=== PATIENT | male | born 1945 | race Caucasian/White ===

== ENCOUNTER 2020-05-22 06:29 | Inpatient (IN) | payer MEDICARE, BC, SELFPAY ==
[2020-05-22] VITALS (13 sets, daily range): BP systolic 89–129; BP diastolic 64–85; PULSE 81–94; RESP 18–34; TEMP 36.4; O2SAT 89–98; BMI 28.4; BMI 27.9; BMI 28.0
--- NOTE | 2020-05-22 06:35 | RAD_ITS ---
HISTORY: STEMI ADDITIONAL HISTORY: None provided. EXAMINATION/TECHNIQUE: XR Chest 1 View AP/PA Number of images including paperwork: 1 COMPARISON: None FINDINGS: LUNGS AND PLEURA: No consolidation, mass or pleural effusion. CARDIAC SILHOUETTE: Unremarkable. MEDIASTINUM AND KATHRYN: Unremarkable. UPPER ABDOMEN: Unremarkable. SKELETON AND SOFT TISSUES: No acute skeletal findings. Degenerative changes. OTHER DEVICES AND HARDWARE: None. RAD/Chest 1 View (Portable) IMPRESSION: No acute cardiopulmonary abnormality. at 0702 Reported and signed by: Susan Adkins MD Electronically Signed: Susan Adkins MD at 7:02 EDT Tel , Service support ,
--- NOTE | 2020-05-22 06:35 | EKG12_ITS ---
Test Reason : Blood Pressure : / mmHG Vent. Rate : 095 BPM Atrial Rate : 095 BPM P-R Int : 170 ms QRS Dur : 074 ms QT Int : 358 ms P-R-T Axes : 063 012 094 degrees QTc Int : 449 ms Sinus rhythm with frequent Premature ventricular complexes Inferior infarct , possibly acute ACUTE UT / STEMI Consider right ventricular involvement in acute inferior infarct Abnormal ECG Confirmed by CORNELIO TRUJILLO, ROXANN ([id number]), news assignment editor WOOD CENTENO ([id number]) on 05/24/2020 10:46:25 AM Referred By: Ara Quinones Confirmed By:ROXANN GRIMES MD
[2020-05-22] MEDS: Heparin Injection (Vial) 5,000 UNIT/ML VIAL 5700 UNIT IV (06:42)
[2020-05-22] MEDS: Aspirin 81 MG TAB.CHEW 324 MG PO (06:42)
--- NOTE | 2020-05-22 06:42 | ED.DCSUM_ITS ---
History of Present Illness Chief Complaint: Chest Pain Informant: Patient Narrative: 75-year-old male with past medical history of diabetes presents with concern for shortness of breath and chest pain. States that 2 days ago he was feeling weak and tired following clearing out a storage building. States that last night he was feeling tired and went to bed early but at 9 PM which is now approximately 9 hours ago he awoke with shortness of breath and mild retrosternal nonradiating chest pain. States it is been constant since that time. Went to urgent care this morning where they sent him here with concern for chest pain. Patient has no history of coronary artery disease and is never had a cardiac catheterization. Patient is not on anticoagulation. Patient is not a smoker. Past Medical History - Allergies and Home Meds Allergies/Adverse Reactions: Allergies No Known Allergies Allergy (Verified 05/22/20 06:43) Primary Care Physician: Didier Vann MD [Primary Care Provider] - Past Medical History: - - Diabetes Surgical History: appendectomy Lives: With Family Smoking Status: Never smoker Alcohol: None Drugs: None Review of Systems General: Denies: Chills, Fever, Sweats Eyes: Denies: Visual changes - bilaterally, Diplopia ENT: Denies: Rhinorrhea, Sore throat Cardiovascular: Reports: Chest pain. Denies: Palpitations Respiratory: Reports: Dyspnea. Denies: Cough, Dyspnea on exertion Gastrointestinal: Denies: Abdominal pain, Nausea, Vomiting, Diarrhea, Melena, Hematochezia Genitourinary: Denies: Dysuria, Hematuria, Frequency Musculoskeletal: Denies: Back pain, Extremity Pain Skin: Denies: Rash, Wounds Neurological: Denies: Headache, Weakness, Numbness Physical Exam Vital Signs/Narrative: Vital Signs Temp Pulse Resp BP Pulse Ox 05/22/20 06:34 20 H 129/85 H 05/22/20 06:30 97.6 F L 94 20 H 129/85 H 94 General: Well nourished, Well developed, No Acute Distress Head: Normocephalic, Atraumatic Eyes: Perrl, EOMI ENT: Moist mucous membranes, No rhinorrhea Neck: Supple, Nontender Cardiovascular: Regular rate, Regular rhythm, No murmurs Respiratory: No distress, CTA bilaterally, Chest nontender Abdomen: Soft, Nontender, Nondistended, Normal bowel sounds Back: Nontender, Normal Inspection Extremities: Nontender, No edema Skin: Normal color, No rash Neurological: Alert, Oriented x3, Cranial nerves II-XII grossly intact, Normal Strength, Normal Sensation Psychological: Normal affect, Normal Mood Diagnostic/Tx/Re-eval - Rhythm Strip Rhythm Strip: Sinus Rhythm Rate: 95 Ectopy: None - EKG Initial EKG Interpretation: Sinus Rhythm - Sinus rhythm at 95 bpm. SC interval of 170 ms. QTC of [address] elevation in leads II, 3, aVF. Reciprocal changes in aVL. Slight elevation in V6. - Medical Decision Making Patient appears well and nontoxic. Initial EKG shows inferior STEMI. Elevation in leads II, III, aVF. Possible slight elevation in V6. Patient was given aspirin. Spoke with gauger chief delivery on-call Dr. Quinones who is agreeable with taking this patient to the catheterization lab. Patient was given a bolus of heparin. Patient agreeable with catheterization and will be admitted following his procedure. Stable at time of admission. Impression: 1. ST elevation myocardial infarction 2. Dyspnea 3. History of diabetes ED Disposition - Plan for ED Patient: Disposition: Acute Care [facility] Referrals: Didier Vann MD [Primary Care Provider] -
[2020-05-22 06:46] LABS: Absolute Neutrophil Count 10.2 X10^3/uL (2.0-7.7); Basophil# 0.02 X10^3/uL; Basophil% 0.2 % (0-1); Eosinophil# 0.15 X10^3/uL; Eosinophils% 1.2 % (0-5); Hematocrit 45.2 % (40-54); Hemoglobin 14.9 g/dL (13.0-16.5); Lymphocyte % 9.5 % (19-41); Mean Corpuscular Hgb 29.2 pg (27.0-32.0); Mean Corpuscular Volume 88.6 fL (80-94); Mean Platelet Vol. 11.8 fl (6.2-12.0); Monocyte# 1.01 X10^3/uL; NRBC Flagged by Analyzer 0 % (0-5); Neutrophil # 10.24 X10^3/uL (2.7-7.7); Neutrophil % 80.8 % (47-70); Platelet Count 226 K/mm3 (150-450); RBC Distribution Width CV 13.8 % (11.6-14.6); RBC Distribution Width SD 44.4 fl (35.1-43.9); White Blood Count 12.7 K/mm3 (4.4-11.0)
[2020-05-22 06:51] LABS: Bedside Glucose 217 mg/dL (70-110)
--- NOTE | 2020-05-22 06:52 | NURSING ---
NO OLD EKGS
[2020-05-22 06:54] LABS: Partial Thromboplast Time 29.2 Seconds (24.1-36.2)
--- NOTE | 2020-05-22 06:57 | NURSING ---
CUSTOMER CARE PROFESSIONAL THEN ICU STEMI LUISA
[2020-05-22 07:03] LABS: International Normalized Ratio 1.1; Prothrombin Time (Protime)PT. 13.6 SECONDS (11.7-14.9)
--- NOTE | 2020-05-22 07:04 | NURSING ---
ICU 9
[2020-05-22 07:27] LABS: Anion Gap 8 (5-15); BUN 22 mg/dL (7-18); BUN/Creat Ratio 15.7 RATIO (10-20); Calcium,Total 8.9 mg/dL (8.5-10.1); Chloride 99 mmol/L (98-107); EST Glomerular Filtration Rate 53 mL/min (>60); Est Glom Filt Rate - Afr Amer 64 mL/min (>60); Estimated Creatinine Clearance 51.58 ml/min; Glucose 231 mg/dL (74-106); Potassium 3.5 mmol/L (3.5-5.1); Sodium Level 135 mmol/L (136-145)
--- NOTE | 2020-05-22 07:28 | ED.RN ---
FREIGHT RATE SPECIALIST AND ICU NOTIFIED TROPONIN 66.8
--- NOTE | 2020-05-22 07:30 | ED.RN ---
TEXT SENT TO HOSPITALIST PAGER UPDATING ON TROPONIN OF 66.8
--- NOTE | 2020-05-22 09:00 | CASEMGMT ---
KAIT CM Note: call from [employer] laborer requesting insurance update. Call to precert to verify MCR is primary and [place] is secondary. Update to cardiac cath lab radiology technologist given. Plan is for patient to transfer to tertiary care. Jessica QUINTERO RN ACM
--- NOTE | 2020-05-22 09:10 | ECHOCS_ITS ---
Reason For Study: STEMI Procedure This was a 2D Doppler, Color Flow transthoracic echocardiogram. The study was technically difficult. Patient scanned supine due to recent cath. Exam performed portable in ICU/CCU. Left Ventricle Normal LV size. The estimated ejection fraction is 20-25 %. There is severe global hypokinesis of the left ventricle. Right Ventricle Normal RV size. Normal systolic function. Atria Normal left atrium. Normal right atrium. No doppler evidence for ASD. Mitral Valve There is no mitral valve stenosis. No mitral valve insufficiency. Tricuspid Valve There is no tricuspid stenosis. Unable to estimate RV systolic pressure due to inadequate jet, pulmonary artery pressure probably normal. Aortic Valve Trisinus/trileaflet aortic valve. Aortic sclerosis, no stenosis. There is no aortic stenosis. No aortic valve insufficiency. Pulmonic Valve There is no pulmonic valvular stenosis. No pulmonic valve insufficiency. Great Vessels Normal aortic root. Pericardium/Pleural No pericardial effusion. Medication Performed a rapid injection of agitated mix of 9 cc saline and 1cc air to assess for atrial septal defect. Diluted definity 4ml given slow IV push to enhance endocardial definition. MMode/2D Measurements & Calculations LVIDd: 3.6 cm IVSd: 1.1 cm Ao root diam: 3.6 cm LVIDs: 3.2 cm LVPWd: 0.90 cm RVDd: 2.6 cm FS: 10.5 % LAV(MOD-sp4): 32.4 ml LA A4 area: 13.3 cm2 LA dimension(2D): 2.6 cm RA A4 area: 9.6 cm2 Doppler Measurements & Calculations MV E max christopher: 48.0 cm/sec Lat Peak E' Christopher: 3.2 cm/sec Med Peak E' Christopher: 4.7 cm/sec MV A max christopher: 83.3 cm/sec E/E' lat: 14.8 E/E' med: 10.2 MV E/A: 0.58 Ao V2 max: 75.0 cm/sec LV V1 max: 56.2 cm/sec PA V2 max: 55.5 cm/sec Ao max P.2 mmHg LV V1 max P.3 mmHg Interpretation Summary There is severe global hypokinesis of the left ventricle. The estimated ejection fraction is 20-25 %. The study was technically difficult. Contrast injection was performed. Ordering Physician: Ara Quinones Referring Physician: Didier Vann Performed By: Ester Pimentel RDCS
[2020-05-22] MEDS: 0.9% Normal Saline 1,000 ML 60 ML IV (09:24)
--- NOTE | 2020-05-22 10:08 | PCM.CONS.C ---
Reason for Consult Date of Consultation: 05/22/20 Reason for Consultation: STEMI History of Present Illness: 75-year-old male with past medical history of diabetes presents with concern for shortness of breath and chest pain. States that 2 days ago he was feeling weak and tired following clearing out a storage building. States that last night he was feeling tired and went to bed early but at 9 PM which is now approximately 9 hours ago he awoke with shortness of breath and mild retrosternal nonradiating chest pain. States it is been constant since that time. Went to urgent care this morning where they sent him here with concern for chest pain. Patient has no history of coronary artery disease and never had a cardiac catheterization. Patient is not on anticoagulation. Patient is not a smoker. Chest pain is worse with deep inspiration. EKG in the ER revealed inferior STEMI. Pt. already had Q waves but due to ongoing CP he was brought to the flue dust laborer and underwent coronary angiography which revealed 80% stenosis in the LAD and 100% mRCA which was the culprit lesion. Attempted PCI to the RCA was unsuccessful. Pt. will be admitted to the ICU and then transferred to [facility] for possible CABG. ROS: A;ll; systems reviewed. All else is negative except that in the HPI Past Medical History Allergies/Adverse Reactions: Allergies No Known Allergies Allergy (Verified 05/22/20 06:43) Home Medications: Ambulatory Orders Medication Instructions Recorded Insulin Glargine,Hum.rec.anlog 40 unit SQ DAILY 05/22/20 [Lantus] Insulin Lispro [Humalog] 15 units SQ TID 05/22/20 Insulin Lispro [Insulin Lispro 15 unit SQ TID 05/22/20 Kwikpen U-100] Metformin HCl [Metformin ER 500 mg PO DAILY 05/22/20 Osmotic] Past Medical History (Chronic Problems): Chronic Problems Type 2 diabetes mellitus (Chronic) Surgical History: appendectomy Lives: With Family Smoking Status: Never smoker Alcohol: None Drugs: None Objective: Vital Signs Temp Pulse Resp BP Pulse Ox 97.6 F L 81 34 H 98/71 92 05/22/20 07:00 05/22/20 10:00 05/22/20 10:00 05/22/20 10:00 05/22/20 10:00 Oxygen Flow Rate (L/min) 2 Oxygen Delivery Method Nasal Cannula Weight: 206 lb 2.115 oz Body Mass Index (BMI) 27.9 General: Awake, Alert, Oriented x 3 HEENT: Atraumatic Oral: Moist Mucosa Neck: Supple Cardiovascular: Regular Rhythm Abdomen: Soft Skin: No Rashes Psych/Mental Status: Appropriate 05/22/20 06:40: WBC 12.7 H, RBC 5.10, Hgb 14.9, Hct 45.2, MCV 88.6, MCH 29.2, MCHC 33.0, Plt Count 226, MPV 11.8, Immature Gran % (Auto) 0.300, Neut % (Auto) 80.8 H, Lymph % (Auto) 9.5 L, Kaufman % (Auto) 8.0, Eos % (Auto) 1.2, Baso % (Auto) 0.2, Absolute Neuts (auto) 10.2 H, Nucleated RBC % 0 05/22/20 06:40: PT 13.6, INR 1.1, APTT 29.2 05/22/20 06:40: Sodium 135 L, Potassium 3.5, Chloride 99, Carbon Dioxide 28.0, Anion Gap 8, BUN 22 H, Creatinine 1.40 H, Est GFR (MDRD) Af Amer 64, Est GFR (MDRD) Non-Af 53 L, BUN/Creatinine Ratio 15.7, Glucose 231 H, Calcium 8.9, Troponin I 66.800 H* Rhythm: EKG: ECHO: Stress Test: Cardiac Cath: PCI: CT Surgery: Holter monitor: EPS: PPM: CXR: Chest CT Scan: Assessment/Plan 1. STEMI: Pt. presented about 9 hours after onset of symptoms and was having ongoing CP. Pt. already had Q waves but due to ongoing CP he was brought to the flue dust laborer and underwent coronary angiography which revealed 80% stenosis in the LAD and 100% mRCA which was the culprit lesion. Attempted PCI to the RCA was unsuccessful as we were not able to cross the lesion. Pt. will be admitted to the ICU and then transferred to [facility] for possible CABG. We will check a 2d echo, keep the patient in ASA, Statin. No plavix or brillinta as he may be going for CABG. He hasn't been loaded with these. He did received integrillin during the case which was stopped at around 8:30 am today.
--- NOTE | 2020-05-22 10:08 | NURSING ---
Report given to RN @ [facility].
--- NOTE | 2020-05-22 10:11 | HP.PCM_ITS ---
Problem List (1) Renal insufficiency Status: Acute (2) Acute ST elevation myocardial infarction (STEMI) Status: Acute (3) Type 2 diabetes mellitus Status: Chronic History of Present Illness Date of Admission: 05/22/20 Chief Complaint: Chest pain. The patient is a 75 year old M with past medical history as mentioned above presented to the emergency room because of chest pain. His symptoms started yesterday evening with chest pain, started at rest, retrosternal, constant pain, sometimes sharp, goes anywhere from 2-5 out of 10 in severity, aggravated by taking a deep breath and associated with shortness of breath and diaphoresis. He denies dizziness, syncope or presyncope. He denied fever or chills. He denied cough or sputum production. In the emergency department, his vital signs were stable. His routine blood work was remarkable for mild leukocytosis, BUN of 22, creatinine is 1.4. EKG revealed normal sinus rhythm, acute ST elevation in leads II, III and aVF. Patient underwent emergent cardiac catheterization that revealed 80% stenosis of the LAD, 100% stenosis of the mid RCA, attempted PCI to RCA was unsuccessful. Patient is being admitted for acute inferior wall ST elevation LA and probably he will need transfer to a tertiary care center for possible CABG. 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 Lives: With Family Smoking Status: Never smoker Alcohol: None Drugs: None - *Family History Maternal History Items: No pertinent history Paternal History Items: No pertinent history Review of Systems Constitutional: Denies: Anorexia, Chills, Fever, Weakness Eyes: Denies: Blurred vision, Double vision, Drainage, Redness HEENT: Denies: Difficulty Hearing, Ear Pain, Eye Pain, Nasal Congestion, Sore Throat Cardiovascular: Reports: Chest Pain. Denies: Edema, Heaviness, Light Headedness, Orthopnea, Palpitations, Paroxysmal Noc. Dyspnea, Syncope Respiratory: Reports: Shortness of Breath. Denies: Cough, Hemoptysis, Pleuritic Pain, Sputum production, Wheezing Gastrointestinal: Denies: Abdominal Pain, Constipation, Diarrhea, Nausea, Vomiting Genitourinary: Denies: Dysuria, Frequency, Hematuria Musculoskeletal: Denies: Arm Pain, Back Pain, Foot Pain Skin: Denies: Dryness, Rash Neurological: Denies: Balance problems, Double vision, Change in Speech, Headaches, Incoordination, Numbness Psychiatric: Denies: Anxiety, Depression Endocrine: Denies: Change in Body Habitus, Polydipsia, Polyuria VTE Information - Inpt Only VTE Present on Admission: No VTE Mechan Device Prophylaxis: None VTE Pharm Prophylaxis ordered?: Yes Patient Problems: Active and Suspected Problems Renal insufficiency (Acute) Acute ST elevation myocardial infarction (STEMI) (Acute) - Physical Exam Vitals/I&O's: Vital Signs Temp Pulse Resp BP Pulse Ox 97.6 F L 81 34 H 98/71 92 05/22/20 07:00 05/22/20 10:00 05/22/20 10:00 05/22/20 10:00 05/22/20 10:00 Oxygen Flow Rate (L/min) 2 Oxygen Delivery Method Nasal Cannula Weight: 206 lb 2.115 oz Body Mass Index (BMI) 27.9 General: Alert, Oriented x3, Cooperative, No apparent distress HEENT: Atraumatic, PERRLA, EOMI, Normocephalic Oral: Moist Mucosa, No Gingival or Mucosal Lesions/ Ulcerations Neck: Supple, No JVD, Negative Carotid Bruits, Trachea Midline, Thyroid Normal Size and Texture Lungs: Clear to auscultation, Normal air movement, No rhonchi, No wheeze, No rales Cardiovascular: Regular rate, Regular Rhythm, Normal S1, Normal S2, No murmurs, PMI Normal Abdomen: Bowel Sounds Present, Soft, Non Tender, Non-Distended, No Hepato- splenomegaly Extremities: No clubbing, No cyanosis, No edema Skin: No rashes, No breakdown Lymphatic: No Cervical, Supraclavicular, or Inguinal Adenopathy Neurological: Cranial nerves II-XII grossly intact, Motor Exam 5/5 strength throughout Psych/Mental Status: Normal Affect, Appropriate, Alert and oriented to time, place, person, mood and affect Laboratory Results 05/22/20 06:40: WBC 12.7 H, RBC 5.10, Hgb 14.9, Hct 45.2, MCV 88.6, MCH 29.2, MCHC 33.0, RDW Std Deviation 44.4 H, RDW Coeff of Vicente 13.8, Plt Count 226, MPV 11.8, Immature Gran % (Auto) 0.300, Neut % (Auto) 80.8 H, Lymph % (Auto) 9.5 L, Becker % (Auto) 8.0, Eos % (Auto) 1.2, Baso % (Auto) 0.2, Absolute Neuts (auto) 10.2 H, Absolute Lymphs (auto) 1.20, Nucleated RBC % 0 05/22/20 06:40: PT 13.6, INR 1.1, APTT 29.2 05/22/20 06:40: Sodium 135 L, Potassium 3.5, Chloride 99, Carbon Dioxide 28.0, Anion Gap 8, BUN 22 H, Creatinine 1.40 H, Estim Creat Clear Calc 51.58, Est GFR (MDRD) Af Amer 64, Est GFR (MDRD) Non-Af 53 L, BUN/Creatinine Ratio 15.7, Glucose 231 H, Calcium 8.9, Troponin I 66.800 H* 05/22/20 06:40: Triglycerides Pending, Cholesterol Pending, LDL Cholesterol Pending, VLDL Cholesterol Pending, HDL Cholesterol Pending, TSH Pending 05/22/20 06:40: Hemoglobin A1c Pending 05/22/20 06:46: POC Glucose 217 H Clinical Impression(s) from Imaging Studies Chest X-Ray 05/22/20 06:35 IMPRESSION: No acute cardiopulmonary abnormality. at 0702 Reported and signed by: Susan Adkins MD Electronically Signed: Susan Adkins MD at 7:02 EDT Tel , Service support , Current Medications Aspirin (Aspirin, Baby) 81 mg PO DAILY@0800 [facility] Atorvastatin Calcium (Lipitor) 40 mg PO QHS [facility] Atropine Sulfate () 0.5 mg IV UD PRN PRN Reason: HR <50 bpm Heparin Sodium (Beef Lung) (Heparin 500 Unit/5 Ml (100/Ml)) 500 unit IV UD PRN PRN Reason: HEPARIN FLUSH Sodium Chloride () 1,000 mls @ 75 mls/hr IV .[id number] RONAN Stop: 05/22/20 15:09 Last Admin: 05/22/20 09:24 Dose: 60 mls/hr Documented by: Insulin Human Lispro (Humalog Kwikpen (Bkc)) 0 unit SC ACHS RONAN; Protocol Labetalol HCl (Trandate) 5 mg IV X1 PRN PRN Reason: SBP > 160 when pulling sheath Stop: 05/24/20 09:08 Metoprolol Tartrate (Lopressor (Beta Sasha)) 12.5 mg PO BID [facility] Non-Formulary Medication (Insulin Glargine,Hum.Rec.Anlog) 40 unit SQ DAILY [facility] Non-Formulary Medication (Insulin Lispro) 15 units SQ TID [facility] Sodium Chloride () 500 ml IV BOLUS PRN PRN Reason: VASO-VAGAL PROTOCOL Sodium Chloride () 10 - 40 ml IV UD PRN PRN Reason: SALINE FLUSH Assessment/Plan All Active Problems Renal insufficiency (Acute) Acute ST elevation myocardial infarction (STEMI) (Acute) This is a 75 years old male patient presented to the emergency room because of chest pain, found to have acute ST elevation on leads II, III and aVF consistent with acute inferior wall LA, underwent emergent cardiac catheterization and he was found to have 80% stenosis of the LAD, 100% stenosis of the mid RCA, attempted PCI to RCA was unsuccessful. #[address] elevation LA: Status post emergent cardiac catheterization, found to have 80% stenosis of the LAD, 100% stenosis of the mid RCA, attempted PCI to RCA was unsuccessful. EKG reviewed as above. Troponin was elevated and it is 66.8. Patient received bolus of IV heparin, aspirin and Integrilin before went for cardiac catheterization. At this time, he is still having chest pain but improved. Chest x-ray showed no acute findings. His vital signs are stable. Plan: Admit to ICU, critical care monitoring, serial cardiac enzymes, start aspirin, Lipitor, metoprolol, lipid profile, TSH, cardiology already consulted, 2D echocardiogram, IV fluids for gentle hydration, Tylenol PRN, Zofran PRN, repeat CBC and CMP tomorrow morning, awaiting bed availability at [facility] for transfer for CABG. #2 renal insufficiency: Unknown if it is acute or chronic. Patient denied any history of kidney disease. Could be acute kidney injury. BUN is 22, creatinine 1.4. Plan: Gentle IV fluids for hydration, input output chart, repeat CMP tomorrow morning. #3 type 2 diabetes mellitus: ADA diet, Accu-Cheks, insulin sliding scale, continue Lantus daily, continue Humalog 3 times daily, will check hemoglobin A1c. #4 DVT prophylaxis: Subcu Lovenox. This note was generated with [employer] dictation software. It may contain incorrect words, spelling, and punctuation that were not noted in checking the note before signing. Inpatient E&M: [id number] Init Hosp L3
[2020-05-22 10:28] LABS: Hemoglobin A1c 9.7 % (3.8-5.6)
[2020-05-22 10:29] LABS: Cholesterol 233 mg/dL (200); High Density Lipoprotein 46 mg/dL; Thyroid Stim Hormone (TSH) 0.75 uIU/mL (0.358-3.74); Triglycerides 119 mg/dL; Very Low Density Lipoprotein 24 mg/dL (5-40)
--- NOTE | 2020-05-22 11:20 | NURSING ---
report given to transport team. TR band intact, syringe given to transport team.
--- NOTE | 2020-05-22 11:31 | DS.PCM_ITS ---
Discharge Date and Diagnosis Date of Admission: 05/22/20 Date of Discharge: 05/22/20 - Primary Discharge Diagnosis Acute Problems: #[address] elevation [place], found to have 80% stenosis of the LAD and 100% occlusion of the mid RCA, transferred to [facility] for CABG. #2 cardiomyopathy, ischemic. #3 uncontrolled type 2 diabetes mellitus. - Secondary Discharge Diagnosis Chronic Problems: Chronic Problems Type 2 diabetes mellitus (Chronic) Hospital Course and Treatment Imaging Results: 05/22/20 06:35 Chest 1 View (Portable) [RAD] Stat 05/22/20 09:10 Echo Complete W/ Contrast [ECHO] Routine Clinical Impression(s) from Imaging Studies Chest X-Ray 05/22/20 06:35 IMPRESSION: No acute cardiopulmonary abnormality. at 0702 Reported and signed by: Susan Adkins MD Electronically Signed: Ssuan Adkins MD at 7:02 EDT Tel , Service support , Dr. Quinones, cardiology. Procedures: 2-D Echocardiogram, Cardiac catheterization, EKG Summary of Care Provided: The patient is a 75 year old M presented to the emergency room because of chest pain that started yesterday evening associated with shortness of breath and di aphoresis, found to have ST elevation on leads II, III and aVF consistent with acute inferior wall ST elevation DC. His troponin was elevated at six 6.8. Patient underwent emergent cardiac catheterization that revealed 80% stenosis of the proximal LAD and 100% occlusion of the mid RCA, attempt to PCI was unsuccessful. Patient received bolus of IV heparin, Brilinta and Integrilin as well as aspirin before he went for cardiac catheterization. Because he has more than 1 vessel disease and he is diabetic, CABG was indicated. Patient was started on aspirin, statins, beta-blockers. 2D echocardiogram revealed severe global hypokinesis of the left ventricle with ejection fraction of 20 to 25%. He was found to have renal insufficiency which was not clear if it is acute or chronic. Creatinine was 1.4 on admission. Cardiology recommended transfer to a tertiary care center for CABG. Dr. Quinones made a call to a cardiac surgeon at [facility] who accepted the patient for transferred for evaluation for CABG. Patient transferred to [facility] in a stable medical condition. - Physical Exam Vitals/I&O's: Vital Signs Temp Pulse Resp BP Pulse Ox 97.6 F L 82 32 H 95/74 96 05/22/20 07:00 05/22/20 10:30 05/22/20 10:30 05/22/20 10:30 05/22/20 11:12 Oxygen Flow Rate (L/min) 2 Oxygen Delivery Method Nasal Cannula Weight: 206 lb 2.115 oz Body Mass Index (BMI) 27.9 General: Alert, Oriented x3, Cooperative, No apparent distress HEENT: Atraumatic, PERRLA, EOMI, Normocephalic Oral: Moist Mucosa, No Gingival or Mucosal Lesions/ Ulcerations Neck: Supple, No JVD, Negative Carotid Bruits, Trachea Midline, Thyroid Normal Size and Texture Lungs: Clear to auscultation, Normal air movement, No rhonchi, No wheeze, No rales Cardiovascular: Regular rate, Regular Rhythm, Normal S1, Normal S2, PMI Normal Abdomen: Bowel Sounds Present, Soft, Non Tender, Non-Distended, No Hepato- splenomegaly Extremities: No clubbing, No cyanosis, No edema Skin: No rashes, No breakdown Lymphatic: No Cervical, Supraclavicular, or Inguinal Adenopathy Neurological: Cranial nerves II-XII grossly intact, Neuro grossly intact Psych/Mental Status: Normal Affect, Appropriate Laboratory Results 05/22/20 06:40: WBC 12.7 H, RBC 5.10, Hgb 14.9, Hct 45.2, MCV 88.6, MCH 29.2, MCHC 33.0, RDW Std Deviation 44.4 H, RDW Coeff of Vicente 13.8, Plt Count 226, MPV 11.8, Immature Gran % (Auto) 0.300, Neut % (Auto) 80.8 H, Lymph % (Auto) 9.5 L, [place] % (Auto) 8.0, Eos % (Auto) 1.2, Baso % (Auto) 0.2, Absolute Neuts (auto) 10.2 H, Absolute Lymphs (auto) 1.20, Nucleated RBC % 0 05/22/20 06:40: PT 13.6, INR 1.1, APTT 29.2 05/22/20 06:40: Sodium 135 L, Potassium 3.5, Chloride 99, Carbon Dioxide 28.0, Anion Gap 8, BUN 22 H, Creatinine 1.40 H, Estim Creat Clear Calc 51.58, Est GFR (MDRD) Af Amer 64, Est GFR (MDRD) Non-Af 53 L, BUN/Creatinine Ratio 15.7, Glucose 231 H, Calcium 8.9, Troponin I 66.800 H* 05/22/20 06:40: Triglycerides 119, Cholesterol 233 H, LDL Cholesterol 163 H, VLDL Cholesterol 24, HDL Cholesterol 46, TSH 0.75 05/22/20 06:40: Hemoglobin A1c 9.7 H 05/22/20 06:46: POC Glucose 217 H Home Medications: Medications to take at Discharge Insulin Glargine,Hum.rec.anlog [Lantus] 40 unit SQ DAILY 05/22/20 Insulin Lispro [Humalog] 15 units SQ TID 05/22/20 Insulin Lispro [Insulin Lispro Kwikpen U-100] 15 unit SQ TID 05/22/20 Metformin HCl [Metformin ER Osmotic] 500 mg PO DAILY 05/22/20 Primary Care Physician: Didier Vann MD [Primary Care Provider] - Disposition: Acute care Hospital Minutes spent on discharge:: 32 Patient Condition:: Guarded Medical Necessity - Tobacco Use Smoking Status: Never smoker Meaningful Use Info Meaningful Use Diagnoses (Choose all that apply): None applicable OBSV E&M: 05660 Observ/hosp same date L3
--- NOTE | 2020-05-22 11:58 | CRPHASE1_ITS ---
Patient Communication PHII Cardiac Rehab Discussed with Patient:: Yes - Bo little to [facility] for CABG Guide to Cardiac Rehab Given to Patient:: Yes Cardiac Rehab Facility Choice List Given to Patient:: Yes Choice Program [facility] CR PHII:: Communication Given to CR, Refer to [facility] Plasticator:: Ara Quinones Refer Phase II Cardiac Rehab:: Yes Sessions:: 36 sessions - 3 days/wk, 12 weeks Risk Factors/Lifestyle Laboratory Values: Cardiac Rehab Phase I Labs Hemoglobin A1c 9.7 % (3.8-5.6) H 05/22/20 06:40 Triglycerides 119 mg/dL (-199) 05/22/20 06:40 Cholesterol 233 mg/dL (200) H 05/22/20 06:40 LDL Cholesterol 163 mg/dL (0-130) H 05/22/20 06:40 HDL Cholesterol 46 mg/dL (40-) 05/22/20 06:40 Cardiac Rehabilitation Info Cardiac Rehabilitation Program Information: Cardiac Rehabilitation is important for patients like you who are recovering from a heart problem. Cardiac rehabilitation programs are recognized as integral to the continued care of the patient with coronary heart disease. The cardiac rehabilitation program is designed to optimize a patient's physical, psychological, and social functioning. Health child care center administrator work in cardiac rehabilitation programs and assist you with getting the treatments you need to get stronger and healthier - like exercise, healthy eating habits, and medications. Cardiac rehabilitation has been show to help people with heart problems live longer and have better life enjoyment than people who do not go to cardiac rehabilitation. Please contact the Cardiac Rehabilitation Program at [facility] at in two weeks if you have not heard from them.
--- NOTE | 2020-05-22 12:00 | CRPH1.INSTRU ---
General Education CAD and cardiac anatomy and function:: Not instructed - The patient is a 75 year old M presented to the emergency room because of chest pain that started yesterday evening associated with shortness of breath and diaphoresis, found to have ST elevation on leads II, III and aVF consistent with acute inferior wall ST elevation FL. His troponin was elevated at six 6.8. Patient underwent emergent cardiac catheterization that revealed 80% stenosis of the proximal LAD and 100% occlusion of the mid RCA, attempt to PCI was unsuccessful. Patient received bolus of IV heparin, Brilinta and Integrilin as well as aspirin before he went for cardiac catheterization. Because he has more than 1 vessel disease and he is diabetic, CABG was indicated. Patient was started on aspirin, statins, beta-blockers. 2D echocardiogram revealed severe global hypokinesis of the left ventricle with ejection fraction of 20 to 25%. He was found to have renal insufficiency which was not clear if it is acute or chronic. Creatinine was 1.4 on admission. Cardiology recommended transfer to a tertiary care center for CABG. Dr. Quinones made a call to a cardiac surgeon at [facility] who accepted the patient for transferred for evaluation for CABG. Patient transferred to [facility] in a stable medical condition. Explanation of diagnoses and procedures:: Not instructed Sign/Symptoms of FL:: Not instructed Antiplatelet therapy: Not instructed Proper use of NTG-SL: Not instructed Emergency procedures and activation of EMS: Not instructed Compliance of all prescribed medications: Not instructed
--- NOTE | 2020-05-23 10:46 | CL.I_ITS ---
Patient Name: MEY WARD Study Date: 05/22/2020 Performing: Vanita Quinones MD Ht: 72.04 inches 183 cm : 1945 Wt: 209.44 lbs 95 kg Age: 75 Gender: male BSA: 2.17 PROCEDURE(S) PERFORMED [id number], DELIA AND/OR PTCA, ARTERY OR GRAFT, SINGLE VESSEL CLINICAL PROFILE AND CO-MORBIDITIES Indications: ACS <= 24 hrs Heart Failure: None Stress/Imaging Stress/Image Study Performed: No CAD Presentations: STEMI. Symptom onset Date/Time: 05/21/20 21:00:00 Time Estimated CONCLUSIONS CAD as described. Unsuccessful PTCA of mRCA RECOMMENDATIONS Refer for possible CABG DESCRIPTION OF PROCEDURE The patient arrived to the procedure lab. The risks and benefits of the procedure as well as a full d escription of our services here and lack of surgical backup were fully explained to the patient and/o r their significant other prior to the catheterization. The Timeout was completed, verifying the rosie ect patient and procedure. The patient's procedural site was prepped and draped in the usual fashion. Local anesthetic was given subcutaneously to right radial region with Lidocaine 2%. Using a modified Seldinger technique, arterial access was obtained via the right radial artery, a 6Fr sheath was inse rted.. JR 4 Guide catheter was inserted and engaged into the RCA. BMW Guide wire was advanced to the RCA . Priority One inserted Pass # 1 Priority One Removed Whisper Guide wire was inserted as a sarahi wire Priority One inserted Pass # 2 Priority One Removed Emerge 2.00x12 Balloon catheter was inserted. PT CA balloon inflated at 6 atms for 10 secs. PTCA balloon inflated at 10 atms for 13 secs. PTCA balloon inflated at 6 atms for 11 secs. PTCA balloon inflated at 6 atms for 16 secs. Angiogram performed pos t balloon dilatation. Priority One inserted Pass # 3 Priority One Removed AL 1 Guide catheter was ins erted and engaged into the RCA. Whisper Guide wire was advanced to the RCA. Emerge 2.00x12 Balloon ca theter was inserted. BMW Guide wire was inserted as a sarahi wire The arterial sheath was pulled and a TR Band was applied for hemostasis w/ 11ml air CORONARY ANGIOGRAPHY DOMINANCE: Right Dominant LEFT MAIN: Mild luminal irregularities LEFT ANTERIOR DESCENDING ARTERY: PROX LAD: 80 % Stenosis CIRCUMFLEX ARTERY: Mild luminal irregularities RIGHT CORONARY ARTERY: MID RCA: 100 % Stenosis INTERVENTION INFORMATION LESION SITE: RCA (Mid) chronic total occlusion: No, Lesion Complexity: High/C, lesion at bifurcation: No, thrombus present: Yes, lesion length: 30 mm, culprit lesion: Yes, Previously treated lesion: No, In-stent restenosis: N o Pre Stenosis: 100 % Pre intervention KAROL flow: 0 PROCEDURE: Balloon Angioplasty. (Unsuccessful), Thrombectomy (unsuccessful) Multiple attempts to cross the occlusion were unsuccessful. Post Stenosis: 100 % Post intervention KAROL flow: 0 Lesion Devices: Rizzo .014 BMW Marion Straight 190cm Cardinal 6 Fr JR4 100cm Guide Catheter Terumo Priority One Aspiration Catheter Josiah Sci EMERGE MR 2.00x12 BALLOON Rizzo .014 HT Whisper MS Straight 190cm Cardinal 6 Fr AL1.0 100cm Guide Catheter Rizzo Doc Guide Wire Extension Medtronic SPRINTER LEGEND OTW 1.25x15 BALLOON COMPLICATIONS No Complications PROCEDURE MEDICATIONS Fentanyl 25 mcg IV Oxygen: 2 L/min via nasal cannula Heparin 2000 unit(s) IV 05/22/2020 07:54:47 SUMMARY OF HEMODYNAMIC DATA Time AIR REST ECG 06:59:38 AO 91/72 (83) SA 07:39:36 Signed By Vanita Quinones MD On 05/23/2020 10:49:02 Vanita Quinones MD
== END 2020-05-22 11:20 | disposition short-term general hospital (02) | DRG 282 ==
LOC: ED 06:54 → ICU 07:27
PROVIDERS: Hospitalist; Admitting Provider Specialist; Emergency Provider Emergency Medicine; PCP Family Medicine; Referring Provider Specialist; Visit Provider Specialist
DX: I21.19 ST elevation (STEMI) myocardial infarction involving other coronary artery of inferior wall (principal); I25.10 Atherosclerotic heart disease of native coronary artery without angina pectoris; E11.65 Type 2 diabetes mellitus with hyperglycemia; I25.5 Ischemic cardiomyopathy; N28.9 Disorder of kidney and ureter, unspecified
CPT/HCPCS: 71045; 80048; 80061; 82962; 83036; 84443; 84484; 85025; 85610; 85730; 92941; 93005; 93306; 93458; 99152; 99153; 99285; C1757; J7030; J7040; Q9957; Q9967; A4216; C1725; C1769; C1887; C1894; C8929; C9606; J1327

== ENCOUNTER → 2021-12-19 | Outpatient (REF) | payer SELFPAY ==
[2021-12-19 07:55] LABS: Hematocrit 32.1 % (40-54); Hemoglobin 10.8 g/dL (13.0-16.5); Mean Corp Hgb Conc 33.6 g/dL (32-36); Mean Corpuscular Hgb 29.5 pg (27.0-32.0); Mean Corpuscular Volume 87.7 fL (80-94); Mean Platelet Vol. 12.4 fl (6.2-12.0); Platelet Count 285 K/mm3 (150-450); RBC Distribution Width CV 13.7 % (11.6-14.6); RBC Distribution Width SD 43.2 fl (35.1-43.9); Red Blood Count 3.66 M/mm3 (4.6-6.2)
[2021-12-19 08:10] LABS: Anion Gap 5 (5-15); BUN 26 mg/dL (7-18); BUN/Creat Ratio 19.3 RATIO (10-20); Calcium,Total 8.5 mg/dL (8.5-10.1); Chloride 110 mmol/L (98-107); Creatinine, Serum 1.35 mg/dL (0.70-1.30); EST Glomerular Filtration Rate 55 mL/min (>60); Est Glom Filt Rate - Afr Amer 66 mL/min (>60); Glucose 143 mg/dL (74-106); Potassium 3.9 mmol/L (3.5-5.1); Sodium Level 142 mmol/L (136-145)
[2021-12-19 08:16] LABS: Vancomycin, Trough Level 10.9 ug/mL (5.0-15.0)
== END | disposition home or self-care (01) ==
LOC: OLS.WHLTCC 04:00
PROVIDERS: PCP Family Medicine; Visit Provider Family Medicine
DX: E11.621 Type 2 diabetes mellitus with foot ulcer (principal); E11.22 Type 2 diabetes mellitus with diabetic chronic kidney disease; L02.612 Cutaneous abscess of left foot; M62.81 Muscle weakness (generalized); R27.8 Other lack of coordination; N18.9 Chronic kidney disease, unspecified; Z74.1 Need for assistance with personal care
CPT/HCPCS: 36415; 80048; 80202; 85027

== ENCOUNTER → 2021-12-23 | Outpatient (REF) | payer SELFPAY ==
[2021-12-23 11:18] LABS: Absolute Lymphocyte Count 1.34 X10^3/uL (0.83-4.51); Basophil# 0.03 X10^3/uL; Basophil% 0.5 % (0-1); Eosinophil# 0.27 X10^3/uL; Eosinophils% 4.5 % (0-5); Hematocrit 38.4 % (40-54); Hemoglobin 12.5 g/dL (13.0-16.5); Lymphocyte # 1.34 X10^3/ul (0.83-4.51); Lymphocyte % 22.3 % (19-41); Mean Corp Hgb Conc 32.6 g/dL (32-36); Mean Corpuscular Volume 89.1 fL (80-94); Mean Platelet Vol. 12.6 fl (6.2-12.0); Monocyte# 0.37 X10^3/uL; Monocyte% 6.1 % (0-10); NRBC Flagged by Analyzer 0 % (0-5); Neutrophil # 3.99 X10^3/uL (2.7-7.7); Neutrophil % 66.3 % (47-70); POSITIVE COUNT YES; Platelet Count 205 K/mm3 (150-450); RBC Distribution Width CV 13.7 % (11.6-14.6); RBC Distribution Width SD 44.9 fl (35.1-43.9); Red Blood Count 4.31 M/mm3 (4.6-6.2)
[2021-12-23 11:19] LABS: Differential Indicated SCAN CRITERIA MET
[2021-12-23 11:33] LABS: Vancomycin, Trough Level 10.5 ug/mL (5.0-15.0)
[2021-12-23 11:40] LABS: Platelet Estimate ADEQUATE (ADEQ); Platelet Morphology LARGE
== END | disposition home or self-care (01) ==
LOC: OLS.WHLTCC 13:00
PROVIDERS: PCP Family Medicine; Visit Provider Family Medicine
DX: E11.621 Type 2 diabetes mellitus with foot ulcer (principal); L02.612 Cutaneous abscess of left foot; M62.81 Muscle weakness (generalized); R26.2 Difficulty in walking, not elsewhere classified; R27.8 Other lack of coordination; Z74.1 Need for assistance with personal care
CPT/HCPCS: 36415; 80202; 85025

== ENCOUNTER → 2021-12-24 | Outpatient (REF) | payer SELFPAY ==
[2021-12-24 07:52] LABS: Creatinine, Serum 1.37 mg/dL (0.70-1.30); EST Glomerular Filtration Rate 54 mL/min (>60); Est Glom Filt Rate - Afr Amer 65 mL/min (>60)
== END | disposition home or self-care (01) ==
LOC: OLS.WHLTCC 05:00
PROVIDERS: PCP Family Medicine; Visit Provider Family Medicine
DX: E11.621 Type 2 diabetes mellitus with foot ulcer (principal); E11.22 Type 2 diabetes mellitus with diabetic chronic kidney disease; L02.612 Cutaneous abscess of left foot; M62.81 Muscle weakness (generalized); R26.2 Difficulty in walking, not elsewhere classified; R27.8 Other lack of coordination; N18.9 Chronic kidney disease, unspecified; Z74.1 Need for assistance with personal care
CPT/HCPCS: 82565; 86140

== ENCOUNTER → 2021-12-26 | Outpatient (REF) | payer SELFPAY ==
[2021-12-26 08:40] LABS: Hematocrit 33.5 % (40-54); Hemoglobin 10.5 g/dL (13.0-16.5); Mean Corp Hgb Conc 31.3 g/dL (32-36); Mean Corpuscular Hgb 28.2 pg (27.0-32.0); Mean Corpuscular Volume 90.1 fL (80-94); Mean Platelet Vol. 12.3 fl (6.2-12.0); Platelet Count 210 K/mm3 (150-450); RBC Distribution Width SD 45.3 fl (35.1-43.9); Red Blood Count 3.72 M/mm3 (4.6-6.2); White Blood Count 6.4 K/mm3 (4.4-11.0)
[2021-12-26 08:53] LABS: Vancomycin, Trough Level 13.9 ug/mL (5.0-15.0)
[2021-12-26 08:57] LABS: Anion Gap 4 (5-15); BUN 18 mg/dL (7-18); BUN/Creat Ratio 15.3 RATIO (10-20); Calcium,Total 8.5 mg/dL (8.5-10.1); Chloride 108 mmol/L (98-107); Creatinine, Serum 1.18 mg/dL (0.70-1.30); EST Glomerular Filtration Rate 64 mL/min (>60); Est Glom Filt Rate - Afr Amer 77 mL/min (>60); Glucose 101 mg/dL (74-106); Potassium 3.9 mmol/L (3.5-5.1); Sodium Level 142 mmol/L (136-145)
== END | disposition home or self-care (01) ==
LOC: OLS.WHLTCC 04:00
PROVIDERS: PCP Family Medicine; Referring Provider Family Medicine; Visit Provider Family Medicine
DX: E11.621 Type 2 diabetes mellitus with foot ulcer (principal); E11.22 Type 2 diabetes mellitus with diabetic chronic kidney disease; L02.612 Cutaneous abscess of left foot; M62.81 Muscle weakness (generalized); R26.2 Difficulty in walking, not elsewhere classified; R27.8 Other lack of coordination; Z74.1 Need for assistance with personal care; N18.9 Chronic kidney disease, unspecified
CPT/HCPCS: 36415; 80048; 80202; 85027

== ENCOUNTER → 2021-12-30 | Outpatient (REF) | payer SELFPAY ==
[2021-12-30 13:34] LABS: Absolute Lymphocyte Count 1.49 X10^3/uL (0.83-4.51); Basophil# 0.04 X10^3/uL; Basophil% 0.7 % (0-1); Eosinophil# 0.25 X10^3/uL; Eosinophils% 4.1 % (0-5); Hematocrit 38.9 % (40-54); Hemoglobin 12.4 g/dL (13.0-16.5); Lymphocyte # 1.49 X10^3/ul (0.83-4.51); Lymphocyte % 24.3 % (19-41); Mean Corp Hgb Conc 31.9 g/dL (32-36); Mean Corpuscular Hgb 28.5 pg (27.0-32.0); Mean Corpuscular Volume 89.4 fL (80-94); Mean Platelet Vol. 12.1 fl (6.2-12.0); Monocyte# 0.37 X10^3/uL; NRBC Flagged by Analyzer 0 % (0-5); Neutrophil # 3.95 X10^3/uL (2.7-7.7); Neutrophil % 64.6 % (47-70); Platelet Count 206 K/mm3 (150-450); RBC Distribution Width CV 13.9 % (11.6-14.6); RBC Distribution Width SD 45.6 fl (35.1-43.9); Red Blood Count 4.35 M/mm3 (4.6-6.2); White Blood Count 6.1 K/mm3 (4.4-11.0)
[2021-12-30 14:04] LABS: CRP 6.09 mg/L (0.0-3.0); Creatinine, Serum 1.38 mg/dL (0.70-1.30); EST Glomerular Filtration Rate 53 mL/min (>60); Est Glom Filt Rate - Afr Amer 65 mL/min (>60)
== END | disposition home or self-care (01) ==
LOC: OLS.WHLTCC 05:00
PROVIDERS: PCP Family Medicine; Visit Provider Family Medicine
DX: E11.621 Type 2 diabetes mellitus with foot ulcer (principal); L02.612 Cutaneous abscess of left foot; M62.81 Muscle weakness (generalized); R26.2 Difficulty in walking, not elsewhere classified; R27.8 Other lack of coordination; Z74.1 Need for assistance with personal care
CPT/HCPCS: 36415; 80202; 82565; 85025; 86140

== ENCOUNTER → 2022-01-02 | Outpatient (REF) | payer SELFPAY ==
[2022-01-02 09:48] LABS: Hematocrit 35.5 % (40-54); Hemoglobin 11.1 g/dL (13.0-16.5); Mean Corp Hgb Conc 31.3 g/dL (32-36); Mean Corpuscular Hgb 28.2 pg (27.0-32.0); Mean Corpuscular Volume 90.3 fL (80-94); Mean Platelet Vol. 12.3 fl (6.2-12.0); Platelet Count 193 K/mm3 (150-450); RBC Distribution Width CV 13.9 % (11.6-14.6); RBC Distribution Width SD 45.7 fl (35.1-43.9); Red Blood Count 3.93 M/mm3 (4.6-6.2); White Blood Count 6.5 K/mm3 (4.4-11.0)
[2022-01-02 10:01] LABS: Anion Gap 6 (5-15); BUN 24 mg/dL (7-18); BUN/Creat Ratio 19.5 RATIO (10-20); Calcium,Total 8.6 mg/dL (8.5-10.1); Chloride 107 mmol/L (98-107); Creatinine, Serum 1.23 mg/dL (0.70-1.30); EST Glomerular Filtration Rate 61 mL/min (>60); Est Glom Filt Rate - Afr Amer 74 mL/min (>60); Glucose 93 mg/dL (74-106); Potassium 3.9 mmol/L (3.5-5.1); Sodium Level 141 mmol/L (136-145)
[2022-01-02 10:19] LABS: Vancomycin, Trough Level 13.8 ug/mL (5.0-15.0)
== END | disposition home or self-care (01) ==
LOC: OLS.WHLEAS 05:00
PROVIDERS: PCP Family Medicine; Visit Provider Family Medicine
DX: E11.621 Type 2 diabetes mellitus with foot ulcer (principal); E11.22 Type 2 diabetes mellitus with diabetic chronic kidney disease; L02.612 Cutaneous abscess of left foot; M62.81 Muscle weakness (generalized); R26.2 Difficulty in walking, not elsewhere classified; R27.8 Other lack of coordination; N18.9 Chronic kidney disease, unspecified; Z74.1 Need for assistance with personal care
CPT/HCPCS: 36415; 80048; 80202; 85027

== ENCOUNTER → 2022-01-06 | Outpatient (REF) | payer SELFPAY ==
[2022-01-06 13:56] LABS: Absolute Lymphocyte Count 1.59 X10^3/uL (0.83-4.51); Absolute Neutrophil Count 3.2 X10^3/uL (2.0-7.7); Basophil# 0.05 X10^3/uL; Basophil% 0.9 % (0-1); Eosinophil# 0.26 X10^3/uL; Eosinophils% 4.7 % (0-5); Hematocrit 39.3 % (40-54); Hemoglobin 12.7 g/dL (13.0-16.5); Lymphocyte # 1.59 X10^3/ul (0.83-4.51); Lymphocyte % 28.4 % (19-41); Mean Corp Hgb Conc 32.3 g/dL (32-36); Mean Corpuscular Hgb 28.7 pg (27.0-32.0); Mean Corpuscular Volume 88.7 fL (80-94); Monocyte# 0.44 X10^3/uL; Monocyte% 7.9 % (0-10); NRBC Flagged by Analyzer 0 % (0-5); Neutrophil # 3.24 X10^3/uL (2.7-7.7); Neutrophil % 57.9 % (47-70); Platelet Count 203 K/mm3 (150-450); RBC Distribution Width CV 14.1 % (11.6-14.6); RBC Distribution Width SD 45.5 fl (35.1-43.9); Red Blood Count 4.43 M/mm3 (4.6-6.2); White Blood Count 5.6 K/mm3 (4.4-11.0)
[2022-01-06 14:06] LABS: Creatinine, Serum 1.49 mg/dL (0.70-1.30); EST Glomerular Filtration Rate 49 mL/min (>60); Est Glom Filt Rate - Afr Amer 59 mL/min (>60); Vancomycin, Trough Level 10.8 ug/mL (5.0-15.0)
== END | disposition home or self-care (01) ==
LOC: OLS.WHLTCC 04:00
PROVIDERS: PCP Family Medicine; Referring Provider Family Medicine; Visit Provider Family Medicine
DX: E11.621 Type 2 diabetes mellitus with foot ulcer (principal); L02.612 Cutaneous abscess of left foot; M62.81 Muscle weakness (generalized); R26.2 Difficulty in walking, not elsewhere classified; R27.8 Other lack of coordination; Z74.1 Need for assistance with personal care
CPT/HCPCS: 36415; 80202; 82565; 85025; 86140

== ENCOUNTER → 2022-01-09 | Outpatient (REF) | payer SELFPAY ==
[2022-01-09 14:18] LABS: Hematocrit 39.8 % (40-54); Hemoglobin 12.5 g/dL (13.0-16.5); Mean Corp Hgb Conc 31.4 g/dL (32-36); Mean Corpuscular Hgb 28.1 pg (27.0-32.0); Mean Corpuscular Volume 89.4 fL (80-94); Mean Platelet Vol. 12.3 fl (6.2-12.0); Platelet Count 192 K/mm3 (150-450); RBC Distribution Width SD 45.9 fl (35.1-43.9); Red Blood Count 4.45 M/mm3 (4.6-6.2); White Blood Count 5.4 K/mm3 (4.4-11.0)
[2022-01-09 14:46] LABS: Anion Gap 6 (5-15); BUN 27 mg/dL (7-18); BUN/Creat Ratio 19.4 RATIO (10-20); Calcium,Total 8.9 mg/dL (8.5-10.1); Chloride 107 mmol/L (98-107); Creatinine, Serum 1.39 mg/dL (0.70-1.30); EST Glomerular Filtration Rate 53 mL/min (>60); Est Glom Filt Rate - Afr Amer 64 mL/min (>60); Glucose 142 mg/dL (74-106); Potassium 3.8 mmol/L (3.5-5.1); Sodium Level 141 mmol/L (136-145)
[2022-01-09 14:53] LABS: Vancomycin, Trough Level 12.4 ug/mL (5.0-15.0)
== END | disposition home or self-care (01) ==
LOC: OLS.WHLTCC 13:30
PROVIDERS: PCP Family Medicine; Referring Provider Family Medicine; Visit Provider Family Medicine
DX: E11.621 Type 2 diabetes mellitus with foot ulcer (principal); E11.22 Type 2 diabetes mellitus with diabetic chronic kidney disease; L02.612 Cutaneous abscess of left foot; M62.81 Muscle weakness (generalized); R26.2 Difficulty in walking, not elsewhere classified; R27.8 Other lack of coordination; N18.9 Chronic kidney disease, unspecified; Z74.1 Need for assistance with personal care
CPT/HCPCS: 36415; 80048; 80202; 85027

== ENCOUNTER → 2022-01-13 | Outpatient (REF) | payer SELFPAY ==
[2022-01-13 15:10] LABS: Absolute Lymphocyte Count 1.63 X10^3/uL (0.83-4.51); Absolute Neutrophil Count 3.7 X10^3/uL (2.0-7.7); Basophil# 0.05 X10^3/uL; Basophil% 0.8 % (0-1); Eosinophil# 0.24 X10^3/uL; Eosinophils% 3.9 % (0-5); Hematocrit 38.7 % (40-54); Hemoglobin 12.2 g/dL (13.0-16.5); Lymphocyte # 1.63 X10^3/ul (0.83-4.51); Lymphocyte % 26.7 % (19-41); Mean Corp Hgb Conc 31.5 g/dL (32-36); Mean Corpuscular Hgb 28.4 pg (27.0-32.0); Mean Corpuscular Volume 90.2 fL (80-94); Mean Platelet Vol. 12.5 fl (6.2-12.0); Monocyte# 0.48 X10^3/uL; Monocyte% 7.9 % (0-10); NRBC Flagged by Analyzer 0 % (0-5); Neutrophil # 3.69 X10^3/uL (2.7-7.7); Neutrophil % 60.5 % (47-70); Platelet Count 194 K/mm3 (150-450); Red Blood Count 4.29 M/mm3 (4.6-6.2); White Blood Count 6.1 K/mm3 (4.4-11.0)
[2022-01-13 15:57] LABS: Vancomycin, Trough Level 12.6 ug/mL (5.0-15.0)
[2022-01-13 16:07] LABS: CRP 5.29 mg/L (0.0-3.0)
== END | disposition home or self-care (01) ==
LOC: OLS.WHLTCC 04:00
PROVIDERS: PCP Family Medicine; Visit Provider Family Medicine
DX: L02.612 Cutaneous abscess of left foot (principal); E11.621 Type 2 diabetes mellitus with foot ulcer; M62.81 Muscle weakness (generalized); R26.2 Difficulty in walking, not elsewhere classified; R27.8 Other lack of coordination; Z74.1 Need for assistance with personal care
CPT/HCPCS: 36415; 80202; 85025; 86140

== ENCOUNTER → 2022-01-16 | Outpatient (REF) | payer SELFPAY ==
[2022-01-16 13:59] LABS: Hematocrit 40.8 % (40-54); Hemoglobin 12.9 g/dL (13.0-16.5); Mean Corp Hgb Conc 31.6 g/dL (32-36); Mean Corpuscular Hgb 28.5 pg (27.0-32.0); Mean Corpuscular Volume 90.3 fL (80-94); Mean Platelet Vol. 12.1 fl (6.2-12.0); Platelet Count 214 K/mm3 (150-450); RBC Distribution Width SD 46.3 fl (35.1-43.9); Red Blood Count 4.52 M/mm3 (4.6-6.2); White Blood Count 5.6 K/mm3 (4.4-11.0)
[2022-01-16 14:42] LABS: Anion Gap 4 (5-15); BUN 25 mg/dL (7-18); Calcium,Total 8.9 mg/dL (8.5-10.1); Chloride 107 mmol/L (98-107); Creatinine, Serum 1.39 mg/dL (0.70-1.30); EST Glomerular Filtration Rate 53 mL/min (>60); Est Glom Filt Rate - Afr Amer 64 mL/min (>60); Glucose 221 mg/dL (74-106); Potassium 3.8 mmol/L (3.5-5.1); Sodium Level 139 mmol/L (136-145); Vancomycin, Trough Level 13.1 ug/mL (5.0-15.0)
== END | disposition home or self-care (01) ==
LOC: OLS.WHLTCC 04:00
PROVIDERS: PCP Family Medicine; Referring Provider Family Medicine; Visit Provider Family Medicine
DX: E11.621 Type 2 diabetes mellitus with foot ulcer (principal); E11.22 Type 2 diabetes mellitus with diabetic chronic kidney disease; L02.612 Cutaneous abscess of left foot; M62.81 Muscle weakness (generalized); R26.2 Difficulty in walking, not elsewhere classified; R27.8 Other lack of coordination; Z74.1 Need for assistance with personal care; N18.9 Chronic kidney disease, unspecified
CPT/HCPCS: 36415; 80048; 80202; 85027

== ENCOUNTER → 2022-01-20 | Outpatient (REF) | payer SELFPAY ==
[2022-01-20 14:19] LABS: Absolute Lymphocyte Count 1.51 X10^3/uL (0.83-4.51); Absolute Neutrophil Count 3.1 X10^3/uL (2.0-7.7); Basophil# 0.04 X10^3/uL; Basophil% 0.8 % (0-1); Eosinophil# 0.22 X10^3/uL; Eosinophils% 4.1 % (0-5); Hematocrit 39.4 % (40-54); Hemoglobin 12.4 g/dL (13.0-16.5); Lymphocyte # 1.51 X10^3/ul (0.83-4.51); Lymphocyte % 28.4 % (19-41); Mean Corp Hgb Conc 31.5 g/dL (32-36); Mean Corpuscular Hgb 28.6 pg (27.0-32.0); Mean Platelet Vol. 12.3 fl (6.2-12.0); Monocyte# 0.46 X10^3/uL; Monocyte% 8.6 % (0-10); NRBC Flagged by Analyzer 0 % (0-5); Neutrophil # 3.09 X10^3/uL (2.7-7.7); Neutrophil % 58.1 % (47-70); Platelet Count 211 K/mm3 (150-450); RBC Distribution Width SD 47.3 fl (35.1-43.9); Red Blood Count 4.33 M/mm3 (4.6-6.2); White Blood Count 5.3 K/mm3 (4.4-11.0)
[2022-01-20 15:02] LABS: Creatinine, Serum 1.44 mg/dL (0.70-1.30); EST Glomerular Filtration Rate 51 mL/min (>60); Est Glom Filt Rate - Afr Amer 62 mL/min (>60)
[2022-01-20 15:03] LABS: Vancomycin, Trough Level 14.9 ug/mL (5.0-15.0)
== END | disposition home or self-care (01) ==
LOC: OLS.WHLTCC 13:30
PROVIDERS: PCP Family Medicine; Referring Provider Family Medicine; Visit Provider Family Medicine
DX: L02.612 Cutaneous abscess of left foot (principal); E11.621 Type 2 diabetes mellitus with foot ulcer; M62.81 Muscle weakness (generalized); R26.2 Difficulty in walking, not elsewhere classified; R27.8 Other lack of coordination; Z74.1 Need for assistance with personal care
CPT/HCPCS: 36415; 80202; 82565; 85025; 86140

== ENCOUNTER → 2022-01-27 | Outpatient (REF) | payer SELFPAY ==
[2022-01-27 13:38] LABS: Absolute Lymphocyte Count 1.36 X10^3/uL (0.83-4.51); Absolute Neutrophil Count 2.9 X10^3/uL (2.0-7.7); Basophil# 0.04 X10^3/uL; Basophil% 0.8 % (0-1); Eosinophil# 0.23 X10^3/uL; Eosinophils% 4.7 % (0-5); Hematocrit 40.2 % (40-54); Hemoglobin 12.5 g/dL (13.0-16.5); Lymphocyte # 1.36 X10^3/ul (0.83-4.51); Lymphocyte % 27.9 % (19-41); Mean Corp Hgb Conc 31.1 g/dL (32-36); Mean Corpuscular Hgb 28.2 pg (27.0-32.0); Mean Corpuscular Volume 90.5 fL (80-94); Mean Platelet Vol. 11.8 fl (6.2-12.0); Monocyte# 0.36 X10^3/uL; Monocyte% 7.4 % (0-10); NRBC Flagged by Analyzer 0 % (0-5); Neutrophil # 2.88 X10^3/uL (2.7-7.7); Platelet Count 215 K/mm3 (150-450); RBC Distribution Width CV 13.9 % (11.6-14.6); RBC Distribution Width SD 46.7 fl (35.1-43.9); Red Blood Count 4.44 M/mm3 (4.6-6.2); White Blood Count 4.9 K/mm3 (4.4-11.0)
[2022-01-27 14:54] LABS: Creatinine, Serum 1.29 mg/dL (0.70-1.30); EST Glomerular Filtration Rate 58 mL/min (>60); Est Glom Filt Rate - Afr Amer 70 mL/min (>60)
[2022-01-27 14:57] LABS: Vancomycin, Trough Level 16.6 ug/mL (5.0-15.0)
== END | disposition home or self-care (01) ==
LOC: OLS.WHLTCC 12:00
PROVIDERS: PCP Family Medicine; Visit Provider Family Medicine
DX: E11.621 Type 2 diabetes mellitus with foot ulcer (principal); L02.612 Cutaneous abscess of left foot; M62.81 Muscle weakness (generalized); R26.2 Difficulty in walking, not elsewhere classified; R27.8 Other lack of coordination; Z74.1 Need for assistance with personal care
CPT/HCPCS: 36415; 80202; 82565; 85025; 86140

== ENCOUNTER → 2022-01-30 | Outpatient (REF) | payer SELFPAY ==
[2022-01-30 08:37] LABS: Hematocrit 36.8 % (40-54); Hemoglobin 11.7 g/dL (13.0-16.5); Mean Corp Hgb Conc 31.8 g/dL (32-36); Mean Corpuscular Hgb 27.9 pg (27.0-32.0); Mean Corpuscular Volume 87.8 fL (80-94); Mean Platelet Vol. 11.7 fl (6.2-12.0); Platelet Count 182 K/mm3 (150-450); RBC Distribution Width CV 14.1 % (11.6-14.6); Red Blood Count 4.19 M/mm3 (4.6-6.2); White Blood Count 6.8 K/mm3 (4.4-11.0)
[2022-01-30 08:47] LABS: Anion Gap 4 (5-15); BUN 25 mg/dL (7-18); BUN/Creat Ratio 20.8 RATIO (10-20); Calcium,Total 8.5 mg/dL (8.5-10.1); Chloride 108 mmol/L (98-107); EST Glomerular Filtration Rate 63 mL/min (>60); Est Glom Filt Rate - Afr Amer 76 mL/min (>60); Glucose 155 mg/dL (74-106); Sodium Level 141 mmol/L (136-145)
== END | disposition home or self-care (01) ==
LOC: OLS.WHLTCC 05:00
PROVIDERS: PCP Family Medicine; Visit Provider Family Medicine
DX: E11.621 Type 2 diabetes mellitus with foot ulcer (principal); L02.612 Cutaneous abscess of left foot; R26.2 Difficulty in walking, not elsewhere classified; R27.8 Other lack of coordination; Z74.1 Need for assistance with personal care
CPT/HCPCS: 36415; 80048; 85027

== ENCOUNTER → 2022-02-12 | Outpatient (REF) | payer SELFPAY ==
[2022-02-12 06:18] LABS: Absolute Lymphocyte Count 1.38 X10^3/uL (0.83-4.51); Absolute Neutrophil Count 3.7 X10^3/uL (2.0-7.7); Basophil# 0.05 X10^3/uL; Basophil% 0.8 % (0-1); Eosinophil# 0.34 X10^3/uL; Eosinophils% 5.7 % (0-5); Hematocrit 38.1 % (40-54); Hemoglobin 12.1 g/dL (13.0-16.5); Lymphocyte # 1.38 X10^3/ul (0.83-4.51); Lymphocyte % 23.1 % (19-41); Mean Corp Hgb Conc 31.8 g/dL (32-36); Mean Corpuscular Hgb 28.2 pg (27.0-32.0); Mean Corpuscular Volume 88.8 fL (80-94); Mean Platelet Vol. 11.9 fl (6.2-12.0); Monocyte# 0.46 X10^3/uL; Monocyte% 7.7 % (0-10); NRBC Flagged by Analyzer 0 % (0-5); Neutrophil # 3.74 X10^3/uL (2.7-7.7); Neutrophil % 62.5 % (47-70); Platelet Count 230 K/mm3 (150-450); RBC Distribution Width CV 14.1 % (11.6-14.6); RBC Distribution Width SD 45.6 fl (35.1-43.9); Red Blood Count 4.29 M/mm3 (4.6-6.2)
[2022-02-12 06:47] LABS: Anion Gap 6 (5-15); BUN 26 mg/dL (7-18); BUN/Creat Ratio 19.7 RATIO (10-20); Calcium,Total 8.6 mg/dL (8.5-10.1); Chloride 107 mmol/L (98-107); Creatinine, Serum 1.32 mg/dL (0.70-1.30); EST Glomerular Filtration Rate 56 mL/min (>60); Est Glom Filt Rate - Afr Amer 68 mL/min (>60); Glucose 172 mg/dL (74-106); Potassium 3.6 mmol/L (3.5-5.1); Sodium Level 139 mmol/L (136-145)
== END | disposition home or self-care (01) ==
LOC: OLS.WHLTCC 05:00
PROVIDERS: PCP Family Medicine; Referring Provider Family Medicine; Visit Provider Family Medicine
DX: L02.612 Cutaneous abscess of left foot (principal); E11.621 Type 2 diabetes mellitus with foot ulcer; M86.9 Osteomyelitis, unspecified; E11.69 Type 2 diabetes mellitus with other specified complication; R78.81 Bacteremia; M62.81 Muscle weakness (generalized); B96.89 Other specified bacterial agents as the cause of diseases classified elsewhere
CPT/HCPCS: 36415; 80048; 85025

== ENCOUNTER 2024-01-30 09:26 | Emergency (ER) | payer MEDICARE, BC, SELFPAY ==
[2024-01-30 09:27] VITALS: BP 128/51; PULSE 80; RESP 20; TEMP 36.9; O2SAT 99; BMI 28.8
--- NOTE | 2024-01-30 09:41 | EX.ED.DYSGE1 ---
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 He states this morning the RN took his pulse, both by machine and by hand, and noted heart rate in the 30s. He has never had this before. Past medical history does include atrial fibrillation for which she is on a blood thinner. He states he felt little lightheaded this morning, but that is rapidly improving. No fevers, but he always feels chilled and cold. He does not feel palpitations. [facility] Medical History (Updated 01/30/24 @ 10:32 by Bennie Patterson MD) Anemia CAD (coronary artery disease) CHF (congestive heart failure) CKD (chronic kidney disease) Diabetes mellitus, type II GERD (gastroesophageal reflux disease) Ischemic cardiomyopathy Muscle wasting Osteoarthritis Osteomyelitis Home Medications insulin glargine 100 unit/mL subcutaneous solution 40 unit SQ DAILY 05/22/20 [History Last Taken Unknown] insulin lispro 100 unit/mL subcutaneous pen 15 unit SQ TID 05/22/20 [History Last Taken Unknown] insulin lispro 100 unit/mL subcutaneous solution 15 units SQ TID 05/22/20 [History Last Taken Unknown] metformin 500 mg tablet,extended release 24hr (osmotic) 500 mg PO DAILY 05/22/20 [History Last Taken Unknown] Allergy/AdvReac Type Severity Reaction Status Date / Time No Known Allergies Allergy Verified 01/30/24 09:31 Social History Smoking Status: Never smoker ROS ROS ED ROS Narrative Constitutional: No fever, no chills. HEENT: No sore throat. No neck pain. No loss of vision. No rhinorrhea. Cardiovascular: No chest pain. No palpitations. No pedal edema. Respiratory: No cough, no shortness of breath. Abdominal: No abdominal pain. No nausea. No vomiting. Genitourinary: No dysuria. No hematuria. Musculoskeletal: No myalgias. No arthralgias. Neurologic: No headaches. No dizziness. Positive lightheadedness this morning-improving. Skin: No rash. No change in color. Psychiatric: No depression. No anxiety. EXAM Physical Exam Narrative Exam Narrative: Afebrile. Vital signs noted. HEENT: Normocephalic. Atraumatic. PERRL, EOMI. Neck soft and supple. No point tenderness or step off. Cardiovascular: Regular rate and rhythm. No murmurs, rubs, or gallops appreciated. Respiratory: No tachypnea. Lungs clear to auscultation bilaterally. Gastrointestinal: Abdomen soft, nontender, with normoactive bowel sounds. No rebound or guarding. Neurological: Awake. Alert. Nonfocal, nonlateralizing. Skin: No rash. Normal color. No pallor. Musculoskeletal: No pedal edema. Const Vital Signs: 01/30/24 09:27 01/30/24 09:36 01/30/24 10:56 Temperature 98.5 F 97.8 F Temperature Source Oral Pulse Rate 80 71 Respiratory Rate 20 H 16 Respiratory Effort Normal Non-Labored Blood Pressure 128/51 H 119/59 L Blood Pressure Mean 76 79 Pulse Ox 99 98 Oxygen Delivery Method 01/30/24 10:56 Temperature 97.8 F Temperature Source Oral Pulse Rate 71 Respiratory Rate 16 Respiratory Effort Blood Pressure 119/59 L Blood Pressure Mean 79 Pulse Ox 98 Oxygen Delivery Method Room Air MDM MDM MDM Narrative Medical decision making narrative: Patient states that he was sent in for bradycardia. He is on metoprolol. EKG was obtained and interpreted by myself independently as sinus rhythm with frequent PVCs, but no evidence of acute ST changes, no STEMI. 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 In review of his laboratory work he has normal white count of 7.0, hemoglobin 11.5 platelet count normal at 349. Electrolyte panel shows chloride slightly elevated at 110 which I think is nonspecific, but otherwise unremarkable except for glucose of 154, and anion gap low at 3. His high-sensitivity troponin is 9. I do not feel he needs serial enzymes. Chest x-ray 1 view obtained and interpreted by myself independently shows no evidence of pneumothorax or pneumonia. I reviewed the radiology report which confirms my independent interpretation and states there is no acute pulmonary process. At this point in time, I feel he can be discharged safely back to the custodial facility as he was sent in for bradycardia with history of atrial fibrillation, but there has been no evidence of bradycardia here throughout his emergency department stay. Disposition is discharged in stable condition. History & Record Review Discussion w/independent historian: EMS personnel and Patient Lab Data Attestation: I reviewed the patient's lab results. Labs: Laboratory Results - last 24 hr 01/30/24 09:54 WBC 7.0 RBC 4.34 L Hgb 11.5 L Hct 37.7 L MCV 86.9 MCH 26.5 L MCHC 30.5 L RDW Std Deviation 48.1 H RDW Coeff of Vicente 15.1 H Plt Count 349 MPV 12.0 Immature Gran % (Auto) 0.100 Neut % (Auto) 63.3 Lymph % (Auto) 26.0 [place] % (Auto) 6.0 Eos % (Auto) 3.7 Baso % (Auto) 0.9 Absolute Neuts (auto) 4.5 Absolute Lymphs (auto) 1.83 Nucleated RBC % 0 Sodium 140 Potassium 3.7 Chloride 110 H Carbon Dioxide 27.0 Anion Gap 3 L BUN 18 Creatinine 1.16 Estim Creat Clear Calc 64.24 Est GFR (MDRD) Af Amer 79 Est GFR (MDRD) Non-Af 65 BUN/Creatinine Ratio 15.5 Glucose 154 H Calcium 8.8 Troponin I High Sens 9 Radiography Diagnostic Testing: Clinical Impression(s) from Imaging Studies Chest X-Ray 01/30/24 09:43 IMPRESSION: No acute pulmonary process Electronically Signed: Brad Max MD at 11:22 EDT Reading Location ID and State: [address] [place] [address] , Service support , Discharge Plan Triage Chief Complaint: Palpitations ED Provider: Bennie Patterson Dx/Rx/DC Orders Clinical Impression: Lightheadedness, Encounter for medical screening examination Instructions: ED Near-Fainting, Uncertain Cause Prescriptions: No Action insulin glargine 100 unit/mL solution 40 unit SQ DAILY Patient Comments: INJECT 40 UNITS SUBCUTANEOUSLY AT BEDTIME (DISCARD INSULIN IN VIAL AFTER OPEN FOR 28 DAYS) insulin lispro 100 unit/mL solution 15 units SQ TID insulin lispro 100 UNIT/ML insulin pen 15 unit SQ TID metformin 500 MG tablet extended release 24hr 500 mg PO DAILY Primary Care Provider: Didier Vann Referrals: Didier Vann MD [Primary Care Provider] - Activity Restrictions/Additional Instructions: There has been no evidence of bradycardia during your emergency department stay. Disposition Disposition: Longterm Facility Discharge Location: [facility] Discharge Date/Time: 01/30/24 11:22
--- NOTE | 2024-01-30 09:43 | RAD_ITS ---
STUDY: X-RAY CHEST REASON FOR EXAM: Male, 79 years old. Right-sided chest pain TECHNIQUE: Single AP portable view of the chest. COMPARISON: None. FINDINGS: EKG leads overlie the chest. Satisfactory appearance of a right PICC line. The lungs are clear and expanded. There is no demonstrated pleural abnormality. Normal size heart. Normal mediastinum and radha. Normal visualized pulmonary arteries. Normal visualized aortic arch and descending thoracic aorta. There are diffuse degenerative changes of the visualized thoracic spine. There is degenerative osteoarthritis of the bilateral shoulders. There is no demonstrated abnormality of the visualized soft tissue structures of the upper abdomen. RAD/Chest 1 View (Portable) IMPRESSION: No acute pulmonary process Electronically Signed: Brad Max MD at 11:22 EDT ,
[2024-01-30 10:08] LABS: Absolute Lymphocyte Count 1.83 X10^3/uL (0.83-4.51); Absolute Neutrophil Count 4.5 X10^3/uL (2.0-7.7); Basophil# 0.06 X10^3/uL; Basophil% 0.9 % (0-1); Eosinophil# 0.26 X10^3/uL; Eosinophils% 3.7 % (0-5); Hematocrit 37.7 % (40-54); Hemoglobin 11.5 g/dL (13.0-16.5); Lymphocyte # 1.83 X10^3/ul (0.83-4.51); Mean Corp Hgb Conc 30.5 g/dL (32-36); Mean Corpuscular Hgb 26.5 pg (27.0-32.0); Mean Corpuscular Volume 86.9 fL (80-94); Monocyte# 0.42 X10^3/uL; NRBC Flagged by Analyzer 0 % (0-5); Neutrophil # 4.45 X10^3/uL (2.7-7.7); Neutrophil % 63.3 % (47-70); Platelet Count 349 K/mm3 (150-450); RBC Distribution Width CV 15.1 % (11.6-14.6); RBC Distribution Width SD 48.1 fl (35.1-43.9); Red Blood Count 4.34 M/mm3 (4.6-6.2)
[2024-01-30 10:23] LABS: Anion Gap 3 (5-15); BUN 18 mg/dL (7-18); BUN/Creat Ratio 15.5 RATIO (10-20); Calcium,Total 8.8 mg/dL (8.5-10.1); Chloride 110 mmol/L (98-107); Creatinine, Serum 1.16 mg/dL (0.70-1.30); EST Glomerular Filtration Rate 65 mL/min (>60); Est Glom Filt Rate - Afr Amer 79 mL/min (>60); Estimated Creatinine Clearance 64.24 ml/min; Glucose 154 mg/dL (74-106); Potassium 3.7 mmol/L (3.5-5.1); Sodium Level 140 mmol/L (136-145); Troponin-I HS 9 pg/mL (3.0-78.0)
[2024-01-30 10:56] VITALS: BP 119/59; PULSE 71; RESP 16; TEMP 36.6; O2SAT 98
--- NOTE | 2024-01-30 10:58 | NURSING ---
CALLED [facility], ETA IS 60 TO 90 MIN
== END 2024-01-30 11:22 | disposition skilled nursing facility (03) ==
PROVIDERS: Emergency Provider Emergency Medicine; PCP Family Medicine; Visit Provider Emergency Medicine
DX: Z03.89 Encounter for observation for other suspected diseases and conditions ruled out (principal); I48.91 Unspecified atrial fibrillation; E11.22 Type 2 diabetes mellitus with diabetic chronic kidney disease; Z79.4 Long term (current) use of insulin; R00.2 Palpitations; R42 Dizziness and giddiness; I25.10 Atherosclerotic heart disease of native coronary artery without angina pectoris; N18.9 Chronic kidney disease, unspecified; Z79.84 Long term (current) use of oral hypoglycemic drugs
CPT/HCPCS: 36592; 71045; 80048; 84484; 85025; 93005; 99283

== ENCOUNTER 2025-04-14 12:58 | Inpatient (IN) | payer MEDICARE, BC, OTHER, SELFPAY ==
[2025-04-14 13:21] VITALS: BP 103/66; PULSE 86; RESP 17; TEMP 36.5; O2SAT 95; BMI 24.5
--- NOTE | 2025-04-14 16:03 | PCM.HP.STD ---
[facility] Date of Admission: 04/14/25 Date of Service: 04/14/25 Chief Complaint: Debility due to L BKA HPI Narrative MEY WARD, is a 80 YO M with a PMH of DM II (on insulin for past 25 years), PVD, CAD, Hx of IWMI in 2019, PTCA/DELIA X 6 at [facility], complete heart block (resolved recently after Metoprolol 100 mg was discontinued), HLD, osteomyelitis Left foot, HTN, OA, CHF with reduced EF (ischemic CM with 35% EF in 2019 but, recently 40%), history of an occluded right radial artery that could not be opened and hx of R transmetatarsal amputation who was initially admitted to [facility] for infected Left foot wounds/diabetic ulcers/osteomyelitis. He had complete heart block on a OP heart monitor ordered by Dr. Harrell. BKA was recommended and Mr. Ward was agreeable. He was transferred to [facility] for consideration for PM and for BKA. With discontinuation of the beta marti the CHB resolved and he did not require PM. On 04/10/25 he had a cardiac cath and it showed an occluded right coronary artery collateralized from the left system, patent proximal LAD stent with moderate diffuse disease in the left system and no focal obstructive lesions noted. The left ventricular end-diastolic pressure was normal. The left main was a large caliber vessel with mild diffuse mildly calcified disease. The circumflex was a nondominant vessel with a single bifurcating obtuse marginal branch with a ostial to proximal calcified 50% stenosis. Distal vessel had mild diffuse disease. He was then taken to the OR on 04/10/25 for a L BKA performed by Dr. Quan Ashley. Echocardiogram on 04/11/2025 showed the left ventricle to be of normal size with an EF of 40+/- 5%. The right ventricle was normal in size. There was no significant valvular heart disease. Prior to discharge from [facility] He was transitioned from intravenous vancomycin and Zosyn to PO amoxicillin and Bactrim which he was to take for a total of 5 days. While at [facility] he was on Heparin 5,000 units SQ Q12H for DVT prophylaxis. Govind lives alone and has 4 steps to enter his house and 13 steps up to the bedroom/BR. He has a half bath on the first floor. He has 2 daughters but, neither lives locally. He was transferred to the acute inpt rehab unit at [facility] on 04/14/25 for 3 hours of therapy daily for strengthening and WC training/mobility. He is NWB on the LLE and is hopeful that he will be able to return home at [place] but, if necessary he is willing to go to SNF. He last had PVR's in January of 2024 and on the R side the high thigh index was 1.24, the low thigh index was 1.17 and the ankle (DP poor) index was 0.81. The PT index was 1.24. On the left side the high thigh index was 1.35, the low thigh index was 1.26, the calf index was 1.47, (indicating noncompressible), the DP index was 1.09 and the PT index was 1.13. Dr. Palmer showed abnormally dampened right dorsalis pedis artery which appeared similar to a previous study. Other levels on the R appeared normal. Doppler on the left appeared normal. Pulse volume recordings appeared abnormally dampened at the right ankle and metatarsal and this appeared worse than on the previous study. Event monitor on 03/15/2025 showed an underlying rhythm of sinus. He had 4 nonsustained runs of ventricular tachycardia longest run lasting 12.2 seconds with a maximum rate of 154 bpm. He also had ventricular bigeminy and trigeminy. There were 36 episodes of third-degree AV block lasting a total of 5 minutes and 28 seconds. At that time he was on metoprolol succinate 100 mg daily. There was second-degree AV block/Mobitz 1. Lab at [facility] showed LDL of 76 and an HDL of 40. TG's were 95. OP ward secretary is Dr. Redmond and his male impersonator is Dr. Harrell. [facility] Medical History (Updated 04/14/25 @ 17:[address] Leandra Thomas DO) Occlusion of right radial artery NSVT (nonsustained ventricular tachycardia) History of colon polyps Hyperlipidemia PAD (peripheral artery disease) History of complete heart block HFrEF (heart failure with reduced ejection fraction) Acute ST elevation myocardial infarction (STEMI) Gas gangrene of extremity MRSA (methicillin resistant staph aureus) culture positive GERD (gastroesophageal reflux disease) Osteoarthritis Anemia Ischemic cardiomyopathy CAD (coronary artery disease) CKD (chronic kidney disease) Muscle wasting Diabetes mellitus, type II Osteomyelitis Home Medications ?Medication ?Instructions ?Recorded ?Last Taken ?Type insulin glargine 100 unit/mL 33 unit subcut QHS DM 05/22/20 04/13/25 History subcutaneous solution Lactobacillus acidophilus 10 100 mmu cells PO DAILY gut health 04/14/25 Unknown History billion cell capsule acetaminophen 500 mg tablet 1,000 mg PO Q8 pain 04/14/25 Unknown History amoxicillin 500 mg capsule 500 mg PO Q8H ATB 04/14/25 04/14/25 History aspirin 81 mg tablet,delayed 81 mg PO DAILY heart health 04/14/25 04/14/25 History release (Adult Low Dose Aspirin) atorvastatin 80 mg tablet (Lipitor) 80 mg PO QHS cholestrol 04/14/25 04/14/25 History cholecalciferol (vitamin D3) 125 125 mcg PO DAILY supplement 04/14/25 Unknown History mcg (5,000 unit) tablet (Vitamin D3) clopidogrel 75 mg tablet 75 mg PO DAILY heart 04/14/25 04/14/25 History dapagliflozin propanediol 10 mg 10 mg PO DAILY CKD 04/14/25 04/14/25 History tablet (Farxiga) losartan 25 mg tablet (Cozaar) 25 mg PO DAILY blood pressure 04/14/25 04/14/25 History oxycodone 5 mg tablet 5 mg PO Q6H PRN pain 1-10 04/14/25 Unknown History pantoprazole 40 mg granules 40 mg PO BID reflux 04/14/25 04/14/25 History delayed-release for susp in packet (Protonix) spironolactone 25 mg tablet 12.5 mg PO DAILY blood pressure 04/14/25 Unknown History (Aldactone) sulfamethoxazole 800 1 tab PO Q12H ATB 04/14/25 04/14/25 History mg-trimethoprim 160 mg tablet (Bactrim DS) Allergy/AdvReac Type Severity Reaction Status Date / Time No Known Allergies Allergy Verified 01/30/24 09:31 Family History unable to obtain Surgical History (Updated 04/14/25 @ 17:[address] Leandra Thomas, DO) Hx of bilateral cataract extraction History of appendectomy H/O colonoscopy with polypectomy History of transmetatarsal amputation of right foot History of percutaneous transluminal coronary angioplasty Hx of left BKA Social History (Updated 04/14/25 @ 17:11 by DELPHINE Duron household members: none and other details: He was and then his spouse passed. She had dementia. 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 Smoking Status: Never smoker alcohol intake: never substance use type: does not use Homelessness:: Sheltered ROS Constitutional Constitutional: Reports fatigue and weakness; Denies anorexia, change in weight, chills, difficulty sleeping, fever(s), night sweats or poor appetite Eyes Eyes: Denies blurry vision, change in vision, eye pain or loss of vision ENT HEENT: Denies abnormal hearing, dysphagia, headache(s), hearing loss, nasal congestion or sore throat Cardiovascular Cardiovascular: Reports dyspnea on exertion, edema and lightheadedness; Denies chest pain, orthopnea, palpitations, paroxysmal nocturnal dyspnea or syncope Respiratory/Chest Respiratory/Chest: Reports shortness of breath with exertion and other Details: Dyspnea on exertion with climbing 1 flight of stairs ; Denies cough, dyspnea, shortness of breath at rest or wheezing Gastrointestinal Gastrointestinal: Reports constipation and other Details: No bowel movement for 5 days ; Denies abdominal pain, diarrhea, dyspepsia, hematemesis, hematochezia, nausea or vomiting Genitourinary Genitourinary: Reports nocturia; Denies dysuria, hematuria, urinary frequency, urinary hesitancy, urinary incontinence or urinary urgency Musculoskeletal Musculoskeletal: Reports other Details: mild phantom pain in the L foot which is intermittent. Not taking narcotics for pain according to the nursing report from previous hospital ; Denies back pain, joint pain, joint swelling, muscle spasms or neck pain Integumentary Integumentary: Reports other Details: diabetic plantar ulcer of R foot. ; Denies jaundice or rash Neurologic Neurologic: Reports dizziness and other Details: Tells me that he has not really been out of bed for the past 7-10 days........when he sat up at the [facility] on rehab he had transient lightheadedness. ; Denies confusion, disequilibrium, focal weakness, headache(s), paresthesias, seizures or tremor(s) Psychiatric Psychiatric: Denies anxiety, depression, homicidal ideation or suicidal ideation Endocrine Endocrinology: Denies change in body appearance, polydipsia or polyuria Hematologic/Lymphatic Hematologic/Lymphatic: Denies easy bleeding, easy bruising or lymphadenopathy Allergic/Immunologic Allergic/Immunologic: Denies rhinitis, eczemia or asthma Vital Signs Vital Signs Vital Signs: 04/14/25 13:21 04/14/25 15:06 Temperature 97.7 F L Temperature Source Temporal Pulse Rate 86 Respiratory Rate 17 Respiratory Effort Normal Non-Labored Blood Pressure 103/66 Blood Pressure Mean 78 Blood Pressure Source Monitor Blood Pressure Position Semi-Fowlers Blood Pressure Location Left Arm Pulse Ox 95 Oxygen Delivery Method Room Air Weight Weight: 180 lb 9.6 oz Body Mass Index (BMI) 24.5 Physical Exam Const alert, oriented x3 and no apparent distress Constitutional Narrative: Making good eye contact, appropriate. General Appearance: cooperative and comfortable HEENT HEENT Narrative: Very dry MM with coated tongue and halitosis Head and Scalp: normocephalic and atraumatic Eyes PERRL, EOMs intact bilaterally, conjunctivae normal and no scleral icterus Eyes Narrative: No discharge from the eyes. Has had cataract extraction with lens implants in the past. General Eye: normal appearance of both eyes Neck no lymphadenopathy, supple, no JVD, No nodes and no carotid bruits Neck Narrative: Carotids have decreased pulse volume Chest Chest: symmetrical chest wall rise Resp normal respiratory effort, normal air movement, no use of accessory muscles and clear to auscultation bilaterally Resp Narrative: Not tachypneic and no conversational dyspnea. Effort and Inspection: able to speak in complete sentences Cardio regular rate, regular rhythm, S1 normal heart sound, S2 normal heart sound, no murmurs, no rub and no gallops Cardio Narrative: No ectopy GI normal to inspection, nondistended, normoactive bowel sounds and non-tender GI Narrative: No guarding with palpation. no CVA tenderness Extremity Extremity Narrative: Denies calf pain on the R. He does not have clubbing. His hands are both cool to the touch and the RLE is cool to the touch when compared to the L. The pedal pulses on the R are diminished. The R popliteal pulse is strong. The left popliteal pulse is strong. He has a small plantar diabetic ulcer of the R foot about mid foot. the wound is dry and there is no DC, no erythema around the wound and he has no pain with palpation. He has had a transmet on the R. Has fair to good ankle flexion and extension. No pain over the Achilles tendon. On the dorsum of the R foot there is a purplish discoloration that looks like it may have been open at one time but, currently there is no opening in the skin and he has no erythema or increased warmth to touch. I can not plapte the R radial artery pulse.......both hands are cool to the touch but, the R arm is cooler than the L. The L radial pulse is good. He denies pain in the R arm. Skin Skin Narrative: No rashes. Generalized hair thinning Neuro oriented x3, CN's II-XII intact bilaterally and no focal motor deficits Neuro Narrative: No facial asymmetry. Motor Exam: strength 5/5 throughout Psych mental status grossly normal, thought process normal, cooperative and affect normal Psych Narrative: Appropriate, making good eye contact. Able to stay on topic and focus. No flight of ideas. Does not appear anxious or depressed. Conversant and relating well to staff and myself. Appearance: grossly normal and appropriate Attitude: calm and engaged Activity / Motor Behavior: appropriate eye contact Speech: normal speech Mood & Affect: euthymic mood Assessment & Plan Assessment/Plan (1) Debility: (2) Gas gangrene of extremity: PLAN: Left LE/foot/ankle - polymicrobial (3) Hx of left BKA: PLAN: at [facility] by Dr. quan Ashley (4) Anemia: (5) History of complete heart block: PLAN: Resolved with discontinuation of Metoprolol Succinate 100 mg (6) Type 2 diabetes mellitus: QUALIFIERS: Diabetes mellitus mcfp insulin use: with mcfp use Diabetes mellitus complication status: with circulatory complication Diabetes mellitus complication detail: with peripheral angiopathy with gangrene Qualified Code(s): E11.52 - Type 2 diabetes mellitus with diabetic peripheral angiopathy with gangrene; Z79.4 - emt intermediate (current) use of insulin (7) HFrEF (heart failure with reduced ejection fraction): (8) Diabetic foot ulcer: QUALIFIERS: Diabetic foot ulcer location: midfoot Diabetes mellitus type: type 2 Laterality: right Non-pressure ulcer stage: limited to breakdown of skin Qualified Code(s): E11.621 - Type 2 diabetes mellitus with foot ulcer; L97.411 - Non-pressure chronic ulcer of right heel and midfoot limited to breakdown of skin (9) CKD (chronic kidney disease): QUALIFIERS: Chronic kidney disease stage 3 subtype: stage 3a (GFR 45-59) Chronic kidney disease stage: stage 3 (moderate) Qualified Code(s): N18.31 - Chronic kidney disease, stage 3a (10) CAD (coronary artery disease): QUALIFIERS: Coronary Disease-Associated Artery/Lesion type: [place] artery [place] vs. transplanted heart: [place] heart Associated angina: without angina Qualified Code(s): I25.10 - Atherosclerotic heart disease of [place] coronary artery without angina pectoris (11) History of percutaneous transluminal coronary angioplasty: (12) PAD (peripheral artery disease): (13) Hyperlipidemia: QUALIFIERS: Hyperlipidemia type: unspecified Qualified Code(s): E78.5 - Hyperlipidemia, unspecified (14) Ischemic cardiomyopathy: (15) NSVT (nonsustained ventricular tachycardia): (16) Occlusion of right radial artery: (17) GERD (gastroesophageal reflux disease): QUALIFIERS: Esophagitis presence: esophagitis presence not specified Qualified Code(s): K21.9 - Gastro-esophageal reflux disease without esophagitis PLAN: Plan PLAN PT for gait stability OT for ADL's Analgesics as needed Bowel protocol Fall precautions Assess for Anxiety/Depression GI prophylaxis -pantoprazole 40 mg twice daily DVT prophylaxis with heparin 5000 units SQ every 12 hours Follow up with Dr. Vann, Dr. Harrell and Dr. Ashley following DC from IP Rehab AM lab including CMP, CBC, Mag, HGBA1C and Phos Adjust insulin regimen to get the BS's under better control. Monitor the R foot very closely. He has an open wound and the R pedal pulses are diminished and the leg is cool to the touch. Last PVR's were over a year ago. Has already had a transmet. I reviewed all the documentation from [facility]. Charges/Coding Visit Charges Inpatient E&M: 15234 Init Hosp L2
[2025-04-14] MEDS: Smz/Tmp Ds Tablet 1 TABLET PO (16:14)
[2025-04-14] MEDS: AMOXICILLIN 500 MG CAPSULE PO ×2 (16:14→20:49)
[2025-04-14 17:34] VITALS: BP 102/65; PULSE 94; RESP 16; TEMP 36.5; O2SAT 96
--- NOTE | 2025-04-14 17:57 | REHABEVAL_ITS ---
Admission Information Primary Diagnosis:: Debility due to left BKA Status Changes from Prescreening?: No changes Identified Actual Problem List:: Infection, Skin Intergrity, Pain, ALteration in Cmfrt, Bowel, Constipation, Alteration in Sleep, Mobility Impaired, Self Care Deficit, Diabetes, Hyperglycemia, Fluid Change-Dehydration and Alteration-Leisure Activ. Potential Problem List:: DVT, Bleeding, Infection, UTI, Aspiration, Falls, Skin Integrity and Depression Risk of Complications DVT: ALBINO Hose and - (Heparin 5000 units SQ every 12 hours) Bleeding: Monitor Lab Values, Nursing to Teach Precautions for anti-coagulation therapy., Wound, if applicable, to be assessed every shift. and Stroke patients assessed for lethargy or change in status. Infection: Clinical Staff to Monitor for S/S of infection: and S/S of infection include fever, redness, warmth, etc. Urinary Tract Infection: Monitor for frequency, burning, discomfort, or incontinence. and Nursing will obtain urine sample for urinalysis and C&S when ordered. Aspiration: Clinical staff will monitor for coughing, drooling, congestion., Speech will evaluate swallowing and dsyphasia. and Nursing will monitor patient swallowing during meals. Falls: Patient will be evaluated for Fall Precautions and Patient will be placed on Fall Precautions as indicated per protocol. Skin Breakdown: Nursing will assess skin daily using assessment tool. and Nursing will place on Skin Breakdown Precautions as indicated. Pain: Clinical staff will assess patient's pain level per protocol., Medications will be given, if needed, and the pain level reassessed. and Other methods: Massage, distraction, decrease stimulus, etc. used PRN. Plan of Care Patient requires physician specializing in physical medicine and rehab oversight to provide close medical supervision of rehab issues including: Pain Management, Sleep Problems, Bowel and Bladder, Medical and co-morbidity Management, DVT prophylaxis, Rehabilitation Leadership and Coordination of treatment team Patient needs Physical Therapy: For a minimum of 1 hour and At least 5 out of 7 days Patient needs Physical Therapy to improve:: Mobility, Strengthening, Transfers, Stretching, ROM, Endurance, Stairs, Gait and Balance Patient needs Occupational Therapy: For a minimum of 1 hour and At least 5 out of 7 days Patient needs Occupational Therapy to improve ADL's incl.: Eating, Grooming, Bathing, Dressing, Toileting, Toilet transfers, Community Reintegration, Higher functioning activities, Household tasks, Adaptive Equipment, Splinting and Other activities as determined Patient requires 24/7 Rehabilitation Nursing for: Pain Issues, Identifying and preventing risk factors, Monitoring and reporting current medical conditions, Assisting with ambulation, transfer, and all ADL's, Teaching patients about disease process and medications, Family teaching, Providing safe environment, Bowel and Bladder Issues, Skin integrity and Medication Management Patient needs Fertilizing Machine Operator/ Case Management for: Discharge Planning, Arranging Home Equipment or Services and Family Interventions Patient needs Dietary and Nutrition Services for: Adequate Nutrition, Nutritional Supplements and Nutritional Education Goals Goals Patient will remain: free from falls Patient will perform eating at: MOD I level of assist. Patient will perform bed mobility at: MOD I level of assist. Patient will complete transfers from bed to chair at: MOD I level of assist. Patient will ambulate: - (20 feet with a wheeled walker at standby assist on various surfaces) Patient will complete upper body dressing at: MOD I level of assist. Patient will complete lower body dressing at: MOD I level of assist. Patient will complete toilet transfer at: MOD I level of assist. Patient will complete toileting at: MOD I level of assist. Patient will perform bathing at: MOD I level of assist. (Upper body bathing independently and lower body bathing at mod I with adaptive equipment as needed to facilitate increased independence with self-care) Patient will perform Tub/Shower transfer at: - (Supervision using DME) Patient will complete grooming at: MOD I level of assist. Patient will complete home management skills at: MOD I level of assist. Patient will achieve: - (4 steps with least restrictive device at standby assist to allow access to his home entrance.) Patient will have pain level of: of 3 or less Patient's skin will: remain intact Patient will receive: adequate nutrition. Discharge Planning Pt Prognosis for Sig. Practical Improv. w/in Reasonable Time: Good Estimated Length of stay (days): 21 Anticipated D/C Destination: Home with Home Health Was Preadmission Assessment Accurate?: Yes
[2025-04-14] MEDS: Heparin Injection (Vial) 5,000 UNIT/ML VIAL 5000 UNIT SC (20:48)
[2025-04-14] MEDS: Senna/Docusate Sodium 1 Tablet 2 TABLET PO (20:48)
[2025-04-14] MEDS: Insulin Glargine-YFGN 100 UNIT/ML Pen 33 UNIT SC (20:52)
[2025-04-14 23:17] LABS: Mucous, Urine 0 SEEN /hpf (<or=2+); Red Blood Cells-Urine 0 SEEN /hpf (0-5)
[2025-04-14 23:21] LABS: Color, Urine Straw (Yellow); Glucose, Dipstick 1000 mg/dl (Normal); Ketone-Dipstick Negative (Negative); Leukocyte Esterase-Dipstick 25 /ul (Negative); Nitrite-Dipstick Negative (Negative); Occult Blood-Urine 25 /ul (Negative); Protein-Dipstick 15 mg/dl (Negative); Specific Gravity, Urine 1.015 (1.002-1.030); Urine Bilirubin Dipstick Negative (Negative)
[2025-04-14 23:50] LABS: Squamous Epithelial Cells - UA 0-5 SEEN /hpf (0-5)
[2025-04-15 06:00] VITALS: BP 112/64; PULSE 76; RESP 18; TEMP 36.6; O2SAT 97
[2025-04-15] MEDS: AMOXICILLIN 500 MG CAPSULE PO ×2 (06:12→13:53)
[2025-04-15 08:18] LABS: Hematocrit 41.5 % (40-54); Hemoglobin 13.3 g/dL (13.0-16.5); Immature Granulocytes Count 0.020 X10^3/uL (0.0-0.0); Mean Corp Hgb Conc 32.0 g/dL (32-36); Mean Corpuscular Volume 81.4 fL (80-94); Mean Platelet Vol. 11.4 fl (6.2-12.0); NRBC Flagged by Analyzer 0 % (0-5); Platelet Count 452 K/mm3 (150-450); RBC Distribution Width CV 17.5 % (11.6-14.6); RBC Distribution Width SD 51.2 fl (35.1-43.9); Red Blood Count 5.10 M/mm3 (4.6-6.2); White Blood Count 5.9 K/mm3 (4.4-11.0)
[2025-04-15 08:42] LABS: AST(SGOT) 53 U/L (<=37); Alanine Aminotransfer ALT/SGPT 40 U/L (<=46); Albumin, Serum 3.1 g/dL (3.4-4.8); Alkaline Phosphatase 125 U/L (40-129); Anion Gap 13 (5-15); BUN 35 mg/dL (4-19); BUN/Creat Ratio 25.7 RATIO (10-20); Calcium,Total 9.3 mg/dL (7.6-11.0); Carbon Dioxide 20.3 mmol/L (21.0-32.0); Chloride 98 mmol/L (98-108); Estimated Creatinine Clearance 48.42 ml/min (50-250); Globulin 5.2 g/dL (2.2-4.2); Glucose 194 mg/dL (70-99); Magnesium 2.6 mg/dL (1.5-2.2); Potassium 4.5 mmol/L (3.3-5.1)
[2025-04-15] MEDS: Smz/Tmp Ds Tablet 1 TABLET PO ×2 (09:37→17:12)
[2025-04-15] MEDS: Lactobacillis Acidophilus 1 CAP PO (09:37)
[2025-04-15] MEDS: Cholecalciferol (Vit D3) 125 MCG CAPSULE (5,000 UNITS) PO (09:37)
[2025-04-15] MEDS: Senna/Docusate Sodium 1 Tablet 2 TABLET PO (09:37)
[2025-04-15] MEDS: Aspirin E.C. 81 MG Tablet PO (09:37)
[2025-04-15] MEDS: Heparin Injection (Vial) 5,000 UNIT/ML VIAL 5000 UNIT SC ×2 (09:39→21:20)
[2025-04-15] MEDS: 0.9% Normal Saline (1000mL) 1,000 ML 75 ML IV (11:31)
[2025-04-15] MEDS: 0.9% Saline Lock 10 ML Syringe IV (12:15)
[2025-04-15 17:47] VITALS: BP 114/61; PULSE 86; RESP 16; TEMP 36.3; O2SAT 97
[2025-04-15] MEDS: Juven (unflavored) Packet 1 PACKET PO (18:08)
--- NOTE | 2025-04-15 18:27 | NURSING ---
Pt bladder scanned for 593ml pt encouraged to use bathroom but refused pt stated this is kind of ridiculous I will go on my own time. Educated pt on importance of voiding and emptying bladder. pt continued to refuse to use bathroom or straight cathed.
[2025-04-15] MEDS: Insulin Glargine-YFGN 100 UNIT/ML Pen 33 UNIT SC (21:21)
[2025-04-16] MEDS: 0.9% Normal Saline (1000mL) 1,000 ML 75 ML IV (00:56)
[2025-04-16 06:00] VITALS: BP 120/65; PULSE 75; RESP 15; TEMP 36.9; O2SAT 94
[2025-04-16 08:16] VITALS: BP 112/59; PULSE 98
[2025-04-16] MEDS: Smz/Tmp Ds Tablet 1 TABLET PO (08:19)
[2025-04-16] MEDS: Aspirin E.C. 81 MG Tablet PO (08:19)
[2025-04-16] MEDS: Juven (unflavored) Packet 1 PACKET PO ×2 (08:19→17:22)
[2025-04-16] MEDS: Lactobacillis Acidophilus 1 CAP PO (08:20)
[2025-04-16] MEDS: Heparin Injection (Vial) 5,000 UNIT/ML VIAL 5000 UNIT SC ×2 (08:20→21:17)
[2025-04-16] MEDS: Senna/Docusate Sodium 1 Tablet 2 TABLET PO (08:21)
[2025-04-16] MEDS: Cholecalciferol (Vit D3) 125 MCG CAPSULE (5,000 UNITS) PO (08:22)
[2025-04-16 17:45] VITALS: BP 123/66; PULSE 81; RESP 16; TEMP 36.3; O2SAT 98
[2025-04-16] MEDS: Insulin Glargine-YFGN 100 UNIT/ML Pen 33 UNIT SC (21:17)
[2025-04-16] MEDS: 0.9% Saline Lock 10 ML Syringe IV (21:26)
[2025-04-17 06:00] VITALS: BP 114/76; PULSE 94; RESP 17; TEMP 36.7; O2SAT 94
[2025-04-17] MEDS: Insulin Glargine-YFGN 100 UNIT/ML Pen 33 UNIT SC (08:38)
[2025-04-17] MEDS: Heparin Injection (Vial) 5,000 UNIT/ML VIAL 5000 UNIT SC ×2 (08:41→21:53)
[2025-04-17] MEDS: Juven (unflavored) Packet 1 PACKET PO ×2 (08:42→17:32)
[2025-04-17] MEDS: Aspirin E.C. 81 MG Tablet PO (08:43)
[2025-04-17] MEDS: Cholecalciferol (Vit D3) 125 MCG CAPSULE (5,000 UNITS) PO (08:43)
[2025-04-17] MEDS: Lactobacillis Acidophilus 1 CAP PO (08:43)
--- NOTE | 2025-04-17 10:35 | PCM.PROGNOTE ---
Subjective Subjective Afebrile VSS -blood pressure since arrival on rehab has ranged from 103/66 at admission to 123/66. Blood pressure this a.m. is 114/76. Heart rate has ranged from 75-94. Maintaining appropriate oxygen saturation on RA Oral intake - FOOD very good FLUIDS oral intake is fair. He received 2 L of normal saline over the weekend for elevated creatinine. The blood sugar record was reviewed. Postvoid residuals x 3 have ranged from 38-145. Discussed with nursing - Nursing reports he is having phantom pain. Has not taken any Oxycodone since admission to rehab. Reviewed the THERAPY notes Medication list reviewed. UA had 5-10 white blood cells with rare bacteria. It was nitrite negative. He has been afebrile. White blood cell count at admission was normal at 5.9. UA grew a yeast-like organism with less than 1000 colonies.....likely due to Vanco and Zosyn used to treated the osteomyelitis prior to the BKA. He is having some phantom pain in the L foot that comes and goes throughout the day. It does not wake him up at night. He has been sleeping well and he denies nightmares, night sweats. Denies lightheadedness, chest pain, shortness of breath, cough, diarrhea, calf pain, dysuria, urinary frequency or urgency. Still seems to believe he will have a prosthesis to use in 1 month from the date of the BKA. Objective Data Objective Data Vital Signs: Vital Signs Temp Pulse Resp BP Pulse Ox O2 Del Method 98.0 F 94 17 114/76 94 Room Air 04/17/25 06:00 04/17/25 06:00 04/17/25 06:00 04/17/25 06:00 04/17/25 06:00 04/17/25 06:00 Oxygen Delivery Method Room Air Weight: 180 lb 9.6 oz Body Mass Index (BMI) 24.5 Intake & Output: Intake and Output for Last 24 Hours 04/15/25 04/16/25 04/17/25 23:59 23:59 23:59 Intake Total 1415 / 1415 3020 / 3020 250 / 250 Output Total 960 / 1260 2575 / 2575 800 / 800 Balance 455 / 155 445 / 445 -550 / -550 Lab / Micro Data 04/18/25 05:05 04/18/25 05:05 Labs: Laboratory Results - last 24 hr 04/16/25 11:31: POC Glucose 143 H 04/16/25 16:12: POC Glucose 146 H 04/16/25 21:15: POC Glucose 178 H 04/17/25 06:38: POC Glucose 176 H Micro: Microbiology 04/14/25 23:05 Urine, Clean Catch Urine Culture - Preliminary Yeast Like Organism Social Homelessness:: Sheltered Physical Exam Const alert, oriented x3 and no apparent distress Constitutional Narrative: Making good eye contact, appropriate. General Appearance: cooperative Resp normal respiratory effort, normal air movement and clear to auscultation bilaterally Resp Narrative: Not tachypneic and no conversational dyspnea. Effort and Inspection: able to speak in complete sentences Cardio regular rate, regular rhythm, no murmurs, no rub and no gallops Cardio Narrative: No ectopy GI normal to inspection, nondistended, normoactive bowel sounds and non-tender GI Narrative: No guarding with palpation. no CVA tenderness Extremity Extremity Narrative: Denies pain in the R foot but, the foot is very cold to the touch. Assessment & Plan Assessment/Plan (1) Debility: (2) Gas gangrene of extremity: PLAN: Left LE/foot/ankle - polymicrobial (3) Hx of left BKA: PLAN: at [facility] by Dr. 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 Diabetes mellitus complication status: with circulatory complication Diabetes mellitus complication detail: with peripheral angiopathy with gangrene Qualified Code(s): E11.52 - Type 2 diabetes mellitus with diabetic peripheral angiopathy with gangrene; Z79.4 - emt intermediate (current) use of insulin (7) HFrEF (heart failure with reduced ejection fraction): (8) Diabetic foot ulcer: QUALIFIERS: Diabetic foot ulcer location: midfoot Diabetes mellitus type: type 2 Laterality: right Non-pressure ulcer stage: limited to breakdown of skin Qualified Code(s): E11.621 - Type 2 diabetes mellitus with foot ulcer; L97.411 - Non-pressure chronic ulcer of right heel and midfoot limited to breakdown of skin (9) CKD (chronic kidney disease): QUALIFIERS: Chronic kidney disease stage: stage 3 (moderate) Chronic kidney disease stage 3 subtype: stage 3a (GFR 45-59) Qualified Code(s): N18.31 - Chronic kidney disease, stage 3a (10) CAD (coronary artery disease): QUALIFIERS: Coronary Disease-Associated Artery/Lesion type: [place] artery [place] vs. 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 Continue therapy 2. PVRs on the right lower extremity. The right foot is very cold to palpation and I could not feel pulses today. He denies pain. Has had a previous transmet. 3. Start gabapentin 100 mg twice daily for phantom pain 4. Continue subcutaneous heparin for DVT prophylaxis. Charges/Coding Visit Charges Inpatient E&M: 12424 Subs Hosp L1
--- NOTE | 2025-04-17 15:16 | ART_ITS ---
Reason For Study Reason For Study: Rt Foot Decreased Pedal Pulse Procedure A bilateral lower extremity continuous wave Doppler with analog waveform analysis,segmental pressures,and ankle brachial indexes without exercise. Left Segmental Pressures Left brachial= 122mmHg. Left low thigh = 181mmHg. Right Segmental Pressures Right brachial= 114mmHg. Right calf = >254mmHg. Right posterior tibial artery = 154mmHg. Right dorsalis pedis artery = 0.61mmHg. The right posterior tibial artery waveforms are triphasic. The right dorsalis pedis waveforms are biphasic. Indices The right ankle brachial index by the posterior tibial artery is 1.26. The right ankle brachial index by the dorsalis pedis is 0.61. VL/Lower Ext Art Exam w/o Exercis Interpretation Summary Right RADHA 1.26, normal. Doppler/PVR waveforms of the right leg normal at rest. TBI diminished, pedal/digit disease vs spasm. Left RADHA not obtained. Doppler/PVR waveforms of the left thigh normal at rest. Ordering Physician: Leandra Thomas Referring Physician: Didier Vann Performed By: Ashvin Morris RVArmando
[2025-04-17 18:00] VITALS: BP 118/58; PULSE 73; RESP 16; TEMP 22.2; O2SAT 98
--- NOTE | 2025-04-17 22:06 | NURSING ---
2150: patient's blood sugar checked for HS, found to be 69. Patient asymptomatic for hypoglycemia. RN notified, snack provided. Patient instructed to notify staff if he starts having symptoms of hypoglycemia. Verbalized understanding. Denies additional needs at this time.
[2025-04-18 05:41] LABS: Hematocrit 36.9 % (40-54); Hemoglobin 11.9 g/dL (13.0-16.5)
[2025-04-18 06:00] VITALS: BP 108/67; PULSE 75; RESP 17; TEMP 35.9; O2SAT 97
[2025-04-18 06:09] LABS: Anion Gap 11 (5-15); BUN 33 mg/dL (4-19); BUN/Creat Ratio 27.3 RATIO (10-20); Calcium,Total 9.1 mg/dL (7.6-11.0); Carbon Dioxide 21.2 mmol/L (21.0-32.0); Chloride 104 mmol/L (98-108); Estimated Creatinine Clearance 55.22 ml/min (50-250); Glucose 158 mg/dL (70-99); Potassium 4.2 mmol/L (3.3-5.1)
[2025-04-18] MEDS: Juven (unflavored) Packet 1 PACKET PO ×2 (07:48→16:09)
[2025-04-18] MEDS: Lactobacillis Acidophilus 1 CAP PO (07:48)
[2025-04-18] MEDS: Aspirin E.C. 81 MG Tablet PO (07:49)
[2025-04-18] MEDS: Heparin Injection (Vial) 5,000 UNIT/ML VIAL 5000 UNIT SC ×2 (07:49→21:32)
[2025-04-18] MEDS: Cholecalciferol (Vit D3) 125 MCG CAPSULE (5,000 UNITS) PO (07:49)
--- NOTE | 2025-04-18 10:24 | PCM.PROGNOTE ---
Subjective Subjective Afebrile Vital signs stable-blood pressure is well-controlled. Maintaining appropriate oxygen saturation on room air Good appetite. Eating 75-100% of all his meals. He does not feel like he is getting adequate amount of food. Currently on 1800 calorie diet, carb consistent. Good fluid intake. I reviewed the travel counselor automobile club consult. The blood sugar record was reviewed. Blood sugar was 69 at bedtime but came up to 104 after a snack. Fasting today was 142. He only had 1 sliding scale dose of lispro yesterday and that was with breakfast. Hemoglobin today is 11.9, which is down from 13.3 at admission to rehab but he is much better hydrated today.. Sodium is 137, up from 131 on 04/15/2025, and the potassium is 4.2. The BUN is 33, down from 35 on 04/15/2025. Creatinine today is 1.21 which is down from 1.38 on 04/15/2025 due to better hydration. He received IV NS over the weekend. Tells me that he slept well last night. The phantom pain is better with the addition of the Gabapentin to the drug regimen. Denies lightheadedness, chest pain, shortness of breath, palpitations, nausea/vomiting/abdominal pain, dysuria and calf tenderness on the right. His only complaint to me today is that he does not feel like he is getting enough food. Prelim report on PVR's from the xzoops is they look good. Dr. Herr will review. Objective Data Objective Data Vital Signs: Vital Signs Temp Pulse Resp BP Pulse Ox O2 Del Method 96.7 F L 75 17 108/67 97 Room Air 04/18/25 06:00 04/18/25 06:00 04/18/25 06:00 04/18/25 06:00 04/18/25 06:00 04/18/25 06:00 Oxygen Delivery Method Room Air Weight: 180 lb 9.6 oz Body Mass Index (BMI) 24.5 Intake & Output: Intake and Output for Last 24 Hours 04/16/25 04/17/25 04/18/25 23:59 23:59 23:59 Intake Total 3020 / 3020 2185 / 2185 640 / 640 Output Total 2575 / 2575 2700 / 2700 850 / 850 Balance 445 / 445 -515 / -515 -210 / -210 Lab / Micro Data 04/18/25 05:05 04/18/25 05:05 Labs: Laboratory Results - last 24 hr 04/17/25 12:05: POC Glucose 131 H 04/17/25 17:03: POC Glucose 128 H 04/17/25 21:48: POC Glucose 69 L 04/17/25 23:03: POC Glucose 104 04/18/25 05:05: Hgb 11.9 L, Hct 36.9 L, Sodium 137, Potassium 4.2, Chloride 104, Carbon Dioxide 21.2, Anion Gap 11, BUN 33 H, Creatinine 1.21 H, Estim Creat Clear Calc 55.22, Est GFR (MDRD) Non-Af 61, BUN/Creatinine Ratio 27.3 H, Glucose 158 H, Calcium 9.1 04/18/25 06:11: POC Glucose 142 H Micro: Microbiology 04/14/25 23:05 Urine, Clean Catch Urine Culture - Final Yeast, not Veronica albicans Social Homelessness:: Sheltered Physical Exam Const alert, oriented x3 and no apparent distress Constitutional Narrative: Making good eye contact, appropriate. General Appearance: cooperative Resp normal respiratory effort, normal air movement and clear to auscultation bilaterally Resp Narrative: Not tachypneic and no conversational dyspnea. Cardio regular rate, regular rhythm, no murmurs, no rub and no gallops Cardio Narrative: No ectopy GI normal to inspection, nondistended, normoactive bowel sounds GI Narrative: No guarding with palpation. no CVA tenderness Skin Wound Narrative: The incision is intact with no dehiscence, no tanmay-incisional erythema and no purulent discharge. Assessment & Plan Assessment/Plan (1) Debility: (2) Gas gangrene of extremity: PLAN: Left LE/foot/ankle - polymicrobial (3) Hx of left BKA: PLAN: at [facility] by Dr. 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 home use Diabetes mellitus complication status: with circulatory complication Diabetes mellitus complication detail: with peripheral angiopathy with gangrene Qualified Code(s): E11.52 - Type 2 diabetes mellitus with diabetic peripheral angiopathy with gangrene; Z79.4 - [facility] (current) use of insulin (7) HFrEF (heart failure with reduced ejection fraction): (8) Diabetic foot ulcer: QUALIFIERS: Diabetic foot ulcer location: midfoot Diabetes mellitus type: type 2 Laterality: right Non-pressure ulcer stage: limited to breakdown of skin Qualified Code(s): E11.621 - Type 2 diabetes mellitus with foot ulcer; L97.411 - Non-pressure chronic ulcer of right heel and midfoot limited to breakdown of skin (9) CKD (chronic kidney disease): QUALIFIERS: Chronic kidney disease stage: stage 3 (moderate) Chronic kidney disease stage 3 subtype: stage 3a (GFR 45-59) Qualified Code(s): N18.31 - Chronic kidney disease, stage 3a (10) CAD (coronary artery disease): QUALIFIERS: Coronary Disease-Associated Artery/Lesion type: [place] artery [place] vs. 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 Continue therapy 2. Continue gabapentin 100 mg twice daily 3. Change the diet to carbohydrate controlled, cardiac and get rid of the calorie restriction. 4. No changes to the insulin regimen today since we are changing the diet. 5. Continue Humberto twice daily for wound healing. Add a multivitamin, vitamin C and vitamin E for healing. 6. Check a Hemoccult stool Charges/Coding Visit Charges Inpatient E&M: 46672 [facility] Hosp L1
[2025-04-18 18:00] VITALS: BP 108/59; PULSE 79; RESP 16; TEMP 36.3; O2SAT 100
[2025-04-18] MEDS: Insulin Glargine-YFGN 100 UNIT/ML Pen 33 UNIT SC (21:32)
[2025-04-19 06:00] VITALS: BP 130/75; PULSE 84; RESP 16; TEMP 36.5; O2SAT 97
[2025-04-19] MEDS: Juven (unflavored) Packet 1 PACKET PO ×2 (07:48→17:24)
[2025-04-19] MEDS: Aspirin E.C. 81 MG Tablet PO (07:48)
[2025-04-19] MEDS: Lactobacillis Acidophilus 1 CAP PO (07:49)
[2025-04-19] MEDS: Senna/Docusate Sodium 1 Tablet 2 TABLET PO ×2 (07:49→21:31)
[2025-04-19] MEDS: Cholecalciferol (Vit D3) 125 MCG CAPSULE (5,000 UNITS) PO (07:50)
[2025-04-19] MEDS: Heparin Injection (Vial) 5,000 UNIT/ML VIAL 5000 UNIT SC ×2 (07:50→21:31)
--- NOTE | 2025-04-19 08:10 | PCM.PROGNOTE ---
Subjective Subjective Afebrile VSS - Maintaining appropriate oxygen saturation on RA Oral intake - FOOD good FLUIDS fair to good Blood sugars were well-controlled yesterday with no hypoglycemia. Fasting is 126 today. Discussed with nursing - no problems that need addressed. Refused stool softeners last night. The last bowel movement was 04/17/2025. Reviewed the THERAPY notes Medication list reviewed. Has not needed any oxycodone since admission to rehab. Denies phantom pain in the Left foot today. Slept well last night. Stump pain is well controlled. the R foot is warmer today.......suspect this is due to better hydration.......got IV fluids over the weekend for low blood pressure. His hands are also not as cold. Denies chest pain, lightheadedness, cough, shortness of breath, nausea/vomiting/abdominal pain, dysuria. I reviewed the PVR results. The right ankle-brachial index by the posterior tibial artery is 1.26 and the right ankle-brachial index by the dorsalis pedis is 0.61. Doppler/PVR waveforms of the right leg are normal at rest. TBI is diminished and he likely has pedal/digit disease versus spasm. Objective Data Objective Data Vital Signs: Vital Signs Temp Pulse Resp BP Pulse Ox O2 Del Method 97.7 F L 84 16 130/75 H 97 Room Air 04/19/25 06:00 04/19/25 06:00 04/19/25 06:00 04/19/25 06:00 04/19/25 06:00 04/19/25 06:00 Oxygen Delivery Method Room Air Weight: 180 lb 9.6 oz Body Mass Index (BMI) 24.5 Intake & Output: Intake and Output for Last 24 Hours 04/17/25 04/18/25 04/19/25 23:59 23:59 23:59 Intake Total 2185 / 2185 1324 / 1324 Output Total 2700 / 2700 1250 / 2250 2450 / 2450 Balance -515 / -515 74 / -926 -2450 / -2450 Lab / Micro Data 04/18/25 05:05 04/18/25 05:05 Labs: Laboratory Results - last 24 hr 04/18/25 11:55: POC Glucose 157 H 04/18/25 16:07: POC Glucose 82 04/18/25 21:11: POC Glucose 139 H 04/19/25 06:08: POC Glucose 126 H Micro: Microbiology 04/14/25 23:05 Urine, Clean Catch Urine Culture - Final Yeast, not Veronica albicans Social Homelessness:: Sheltered Physical Exam Const alert, oriented x3 and no apparent distress General Appearance: cooperative HEENT moist oral mucous membranes Resp normal respiratory effort and clear to auscultation bilaterally Cardio regular rate, regular rhythm, no rub and no gallops Cardio Narrative: No ectopy GI normal to inspection, nondistended, normoactive bowel sounds, soft to palpation and non-tender GI Narrative: Having regular BM's now. Extremity no calf tenderness Extremity Narrative: Edema of the stump is decreasing.......the cast is looser and so is the senior graphic designer. There is an area of sonam prominence over the patella that we are padding. there is no skin breakdown but, there is a little redness and resolving bruising. Mild tenderness to palpation. The incision is intact with no dehiscence, no Dc and no tanmay-incisional erythema. carlos remain in place. No phantom pain today. The R foot and the hands are warmer today......they were very cold Thursday. I suspect they are warmer because he was hydrated and he has better BP now. Skin Skin Narrative: The diabetic ulcer of the R foot plantar surface is open and into the fat layer. There is no tanmay-wound erythema and no purulent DC. There is no odor. There is a rim of hyperkeratotic skin around the wound that likely needs debrided. No significant swelling around the wound. No ankle edema. There is an area on the dorsum of the R foot that is scaley and discolored. There is no opening in the skin Assessment & Plan Assessment/Plan (1) Debility: (2) Gas gangrene of extremity: (3) Hx of left BKA: (4) Anemia: (5) History of complete heart block: (6) Type 2 diabetes mellitus: QUALIFIERS: Diabetes mellitus watermaster insulin use: with watermaster use Diabetes mellitus complication status: with circulatory complication Diabetes mellitus complication detail: with peripheral angiopathy with gangrene Qualified Code(s): E11.52 - Type 2 diabetes mellitus with diabetic peripheral angiopathy with gangrene; Z79.4 - [facility] (current) use of insulin (7) HFrEF (heart failure with reduced ejection fraction): (8) Diabetic foot ulcer: QUALIFIERS: Diabetic foot ulcer location: midfoot Diabetes mellitus type: type 2 Laterality: right Non-pressure ulcer stage: limited to breakdown of skin Qualified Code(s): E11.621 - Type 2 diabetes mellitus with foot ulcer; L97.411 - Non-pressure chronic ulcer of right heel and midfoot limited to breakdown of skin (9) CKD (chronic kidney disease): QUALIFIERS: Chronic kidney disease stage: stage 3 (moderate) Chronic kidney disease stage 3 subtype: stage 3a (GFR 45-59) Qualified Code(s): N18.31 - Chronic kidney disease, stage 3a (10) CAD (coronary artery disease): QUALIFIERS: Coronary Disease-Associated Artery/Lesion type: [place] artery [place] vs. 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 Continue therapy 2. No changes to the drug regimen today 3. Consult Dr. Eleuterio Correa for diabetic ulcer on the plantar surface of the right foot 4. Continue gabapentin 100 mg twice daily for phantom pain. Charges/Coding Visit Charges Inpatient E&M: 97815 [facility] Hosp L1
[2025-04-19] MEDS: Petrolatum 33% Tube 1 APPLIC TOPICAL (11:51)
[2025-04-19 17:41] VITALS: BP 110/47; PULSE 72; RESP 16; TEMP 35.3; O2SAT 95
[2025-04-19] MEDS: Insulin Glargine-YFGN 100 UNIT/ML Pen 33 UNIT SC (21:34)
[2025-04-20 06:02] VITALS: BP 110/65; PULSE 83; RESP 16; TEMP 36.4; O2SAT 98
[2025-04-20] MEDS: Petrolatum 33% Tube 1 APPLIC TOPICAL (06:13)
[2025-04-20] MEDS: Senna/Docusate Sodium 1 Tablet 2 TABLET PO (07:41)
[2025-04-20] MEDS: Heparin Injection (Vial) 5,000 UNIT/ML VIAL 5000 UNIT SC ×2 (07:41→21:07)
[2025-04-20] MEDS: Cholecalciferol (Vit D3) 125 MCG CAPSULE (5,000 UNITS) PO (07:41)
[2025-04-20] MEDS: Juven (unflavored) Packet 1 PACKET PO ×2 (07:42→16:59)
[2025-04-20] MEDS: Lactobacillis Acidophilus 1 CAP PO (07:42)
[2025-04-20] MEDS: Aspirin E.C. 81 MG Tablet PO (07:42)
--- NOTE | 2025-04-20 08:16 | CASEMGMT ---
Social Work IDT met with patient for Team meeting. Pt denied wanting to involve family. Discussed patient's progress in PT/OT/SN/MD. Educated to Medicare approval of 14 days with DC 04/28. Pt voiced wanting to DC to a SNF, either [facility] or [facility]. SW will make those referrals next week to allow more improvement with therapy. Pt inquired again about extending his stay. SW reiterated appeal rights, and this worker will meet with pt two days prior to DC (04/26) to review appeal rights and pt can choose to appeal. Will ReTeam next week. SW will continue to follow to finalize DC plans. Britney Junior MSW [employer]
[2025-04-20 17:44] VITALS: BP 118/58; PULSE 83; RESP 16; TEMP 36.6; O2SAT 97
[2025-04-20] MEDS: Insulin Glargine-YFGN 100 UNIT/ML Pen 33 UNIT SC (21:07)
[2025-04-20 22:00] VITALS: RESP 16
[2025-04-21 06:00] VITALS: BP 119/75; PULSE 85; RESP 16; TEMP 36.5; O2SAT 96; BMI 24.3
[2025-04-21] MEDS: Petrolatum 33% Tube 1 APPLIC TOPICAL (06:19)
[2025-04-21] MEDS: Lactobacillis Acidophilus 1 CAP PO (08:16)
[2025-04-21] MEDS: Heparin Injection (Vial) 5,000 UNIT/ML VIAL 5000 UNIT SC ×2 (08:17→22:49)
[2025-04-21] MEDS: Cholecalciferol (Vit D3) 125 MCG CAPSULE (5,000 UNITS) PO (08:17)
[2025-04-21] MEDS: Aspirin E.C. 81 MG Tablet PO (08:17)
[2025-04-21] MEDS: Juven (unflavored) Packet 1 PACKET PO ×2 (08:18→16:34)
[2025-04-21 08:39] LABS: Hematocrit 36.4 % (40-54); Hemoglobin 11.8 g/dL (13.0-16.5)
[2025-04-21 17:29] VITALS: BP 116/63; PULSE 82; RESP 17; TEMP 36.9; O2SAT 98
[2025-04-21] MEDS: Insulin Glargine-YFGN 100 UNIT/ML Pen 33 UNIT SC (22:49)
[2025-04-22 06:00] VITALS: BP 126/73; PULSE 82; RESP 16; TEMP 36.4; O2SAT 97
[2025-04-22] MEDS: Petrolatum 33% Tube 1 APPLIC TOPICAL (06:04)
[2025-04-22] MEDS: Juven (unflavored) Packet 1 PACKET PO ×2 (08:10→16:29)
[2025-04-22] MEDS: Heparin Injection (Vial) 5,000 UNIT/ML VIAL 5000 UNIT SC ×2 (08:10→21:58)
[2025-04-22] MEDS: Lactobacillis Acidophilus 1 CAP PO (08:11)
[2025-04-22] MEDS: Cholecalciferol (Vit D3) 125 MCG CAPSULE (5,000 UNITS) PO (08:11)
[2025-04-22] MEDS: Aspirin E.C. 81 MG Tablet PO (08:18)
[2025-04-22 18:00] VITALS: BP 106/63; PULSE 90; RESP 18; TEMP 36.5; O2SAT 100
[2025-04-22] MEDS: Insulin Glargine-YFGN 100 UNIT/ML Pen 33 UNIT SC (21:58)
[2025-04-23 06:00] VITALS: BP 115/68; PULSE 101; RESP 16; TEMP 36.3; O2SAT 97
[2025-04-23] MEDS: Petrolatum 33% Tube 1 APPLIC TOPICAL (06:15)
[2025-04-23] MEDS: Aspirin E.C. 81 MG Tablet PO (08:19)
[2025-04-23] MEDS: Lactobacillis Acidophilus 1 CAP PO (08:19)
[2025-04-23] MEDS: Cholecalciferol (Vit D3) 125 MCG CAPSULE (5,000 UNITS) PO (08:19)
[2025-04-23] MEDS: Juven (unflavored) Packet 1 PACKET PO ×2 (08:22→17:17)
[2025-04-23] MEDS: Heparin Injection (Vial) 5,000 UNIT/ML VIAL 5000 UNIT SC ×2 (08:22→22:41)
[2025-04-23 18:00] VITALS: BP 109/58; PULSE 75; RESP 16; TEMP 36.3; O2SAT 100
[2025-04-23] MEDS: Insulin Glargine-YFGN 100 UNIT/ML Pen 33 UNIT SC (22:40)
[2025-04-24] MEDS: Petrolatum 33% Tube 1 APPLIC TOPICAL (05:19)
[2025-04-24 05:22] VITALS: BP 109/69; PULSE 78; RESP 18; TEMP 36.3; O2SAT 95
[2025-04-24] MEDS: Lactobacillis Acidophilus 1 CAP PO (08:02)
[2025-04-24] MEDS: Juven (unflavored) Packet 1 PACKET PO (08:03)
[2025-04-24] MEDS: Cholecalciferol (Vit D3) 125 MCG CAPSULE (5,000 UNITS) PO (08:03)
[2025-04-24] MEDS: Heparin Injection (Vial) 5,000 UNIT/ML VIAL 5000 UNIT SC ×2 (08:08→21:06)
[2025-04-24] MEDS: Aspirin E.C. 81 MG Tablet PO (08:13)
--- NOTE | 2025-04-24 12:19 | PCM.PROGNOTE ---
Subjective Subjective Afebrile VSS - Maintaining appropriate oxygen saturation on RA Oral intake - FOOD good FLUIDS good The blood sugar record was reviewed and the blood sugars are well-controlled with no hypoglycemia. Discussed with nursing - no problems that need addressed Reviewed the THERAPY notes Medication list reviewed. Hemoglobin on 04/21/2025 was 11.8 which is stable. Govind denies lightheadedness, cephalgia, chest pain, shortness of breath, palpitations, nausea/vomiting/abdominal pain, dysuria and calf pain. He tells me the phantom limb pain is almost completely gone. He is sleeping well at night and has a good appetite. Objective Data Objective Data Vital Signs: Vital Signs Temp Pulse Resp BP Pulse Ox O2 Del Method 97.3 F L 78 18 109/69 95 Room Air 04/24/25 05:22 04/24/25 05:22 04/24/25 05:22 04/24/25 05:22 04/24/25 05:22 04/24/25 05:22 Oxygen Delivery Method Room Air Weight: 179 lb 3.773 oz Body Mass Index (BMI) 24.3 Intake & Output: Intake and Output for Last 24 Hours 04/22/25 04/23/25 04/24/25 23:59 23:59 23:59 Intake Total 1100 / 1100 1680 / 1680 400 / 400 Output Total 1200 / 1800 3125 / 3125 800 / 800 Balance -100 / -700 -1445 / -1445 -400 / -400 Lab / Micro Data 04/21/25 08:29 04/18/25 05:05 Labs: Laboratory Results - last 24 hr 04/23/25 17:19: POC Glucose 142 H 04/23/25 21:16: POC Glucose 149 H 04/24/25 07:02: POC Glucose 112 H 04/24/25 11:13: POC Glucose 101 Micro: Microbiology 04/20/25 10:10 Stool Stool Occult Blood (DARRELL) - Final Occult Blood Positive 04/14/25 23:05 Urine, Clean Catch Urine Culture - Final Yeast, not Veronica albicans Social Homelessness:: Sheltered Physical Exam Const alert, oriented x3 and no apparent distress Constitutional Narrative: Talkative, pleasant. Engaged in what we are talking about and making good eye contact. General Appearance: cooperative HEENT moist oral mucous membranes Resp normal respiratory effort, normal air movement and clear to auscultation bilaterally Effort and Inspection: Negative for tachypneic Cardio regular rate, regular rhythm and no gallops GI normal to inspection, nondistended, normoactive bowel sounds, soft to palpation and non-tender GI Narrative: No guarding with palpation Extremity no calf tenderness Extremity Narrative: the left General Extremity: Negative for edema Skin Skin Narrative: the incision is intact with no dehiscence, no purulent discharge and no tanmay-incisional erythema. Swelling is coming down in the stump and he now has 4 burlapper socks on and the cast is loose. the diabetic ulcer on the plantar surface of the R foot is still present. It is open and has a small amount of serous drainage. No purulent DC. No odor. No erythema around the wound. There is hyperkeratosis around the ulceration. The foot is cool to the touch and blusih purple. Has not been seen by podiatry yet. Consult was called on 04/19/25. Psych cooperative and affect normal Appearance: appropriate Assessment & Plan Assessment/Plan (1) Debility: (2) Gas gangrene of extremity: PLAN: Resolved with BKA. (3) Hx of left BKA: (4) Anemia: QUALIFIERS: Anemia type: unspecified type Qualified Code(s): D64.9 - Anemia, unspecified PLAN: Stable. More likely than not chronic anemia due to chronic infection with superimposed acute anemia due to blood loss from BKA. (5) History of complete heart block: (6) Type 2 diabetes mellitus: QUALIFIERS: Diabetes mellitus senior living insulin use: with machinist set up use Diabetes mellitus complication status: with circulatory complication Diabetes mellitus complication detail: with peripheral angiopathy with gangrene Qualified Code(s): E11.52 - Type 2 diabetes mellitus with diabetic peripheral angiopathy with gangrene; Z79.4 - casing crew pusher (current) use of insulin (7) HFrEF (heart failure with reduced ejection fraction): (8) Diabetic foot ulcer: QUALIFIERS: Diabetic foot ulcer location: midfoot Diabetes mellitus type: type 2 Laterality: right Non-pressure ulcer stage: limited to breakdown of skin Qualified Code(s): E11.621 - Type 2 diabetes mellitus with foot ulcer; L97.411 - Non-pressure chronic ulcer of right heel and midfoot limited to breakdown of skin PLAN: Plantar surface of the R foot. (9) CKD (chronic kidney disease): QUALIFIERS: Chronic kidney disease stage: stage 3 (moderate) Chronic kidney disease stage 3 subtype: stage 3a (GFR 45-59) Qualified Code(s): N18.31 - Chronic kidney disease, stage 3a PLAN: Stage II (10) CAD (coronary artery disease): QUALIFIERS: Coronary Disease-Associated Artery/Lesion type: [place] artery [place] vs. 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 Continue therapy 2. Repeat a CBC and BMP on Thursday 3. Plan discharge on Thursday to a care home facility to yet be determined. 4. Nursing will call Dr. Correa's office tomorrow and if he is unable to see the patient will likely call [facility]. Charges/Coding Visit Charges Inpatient E&M: 24935 Subs Hosp L1
[2025-04-24 17:14] VITALS: BP 101/53; PULSE 100; RESP 18; TEMP 36.2; O2SAT 98
[2025-04-24] MEDS: Insulin Glargine-YFGN 100 UNIT/ML Pen 33 UNIT SC (21:07)
[2025-04-25] MEDS: Petrolatum 33% Tube 1 APPLIC TOPICAL (05:59)
[2025-04-25 06:00] VITALS: BP 116/76; PULSE 93; RESP 18; TEMP 36.6; O2SAT 98
[2025-04-25] MEDS: Senna/Docusate Sodium 1 Tablet 2 TABLET PO ×2 (07:44→21:24)
[2025-04-25] MEDS: Cholecalciferol (Vit D3) 125 MCG CAPSULE (5,000 UNITS) PO (07:44)
[2025-04-25] MEDS: Juven (unflavored) Packet 1 PACKET PO ×2 (07:45→17:37)
[2025-04-25] MEDS: Lactobacillis Acidophilus 1 CAP PO (07:45)
[2025-04-25] MEDS: Aspirin E.C. 81 MG Tablet PO (07:45)
[2025-04-25] MEDS: Heparin Injection (Vial) 5,000 UNIT/ML VIAL 5000 UNIT SC ×2 (07:46→21:24)
--- NOTE | 2025-04-25 08:18 | PCM.PROGNOTE ---
Subjective Subjective Afebrile Vital signs are stable Maintaining appropriate oxygen saturation on room air The blood sugar at supper yesterday was 79 and he was not given any insulin. HS sugar was high at 160 and the fasting this morning is high at 164. Because the sugars were low yesterday at lunch and supper the mealtime insulin was decreased to 7 units. This morning he got 7 units + 2 for BS 164. Denies phantom pain. No CP, SOB, palpitations, lightheadedness, N/V/abd pain. No pain in the R foot. Complaining about his diet again and not getting as much protein as he is supposed to get. The lettuce cutter met with him. Dr. Correa does not come to [facility] and so a consult was put in for Dr. De Luna. Pt seems upset by this.......a Xray of the foot was ordered prior to Dr. De Luna seeing the patient and he is upset with this. The radiology read is diffuse soft tissue swelling. Objective Data Objective Data Vital Signs: Vital Signs Temp Pulse Resp BP Pulse Ox O2 Del Method 97.8 F 93 18 116/76 98 Room Air 04/25/25 06:00 04/25/25 06:00 04/25/25 06:00 04/25/25 06:00 04/25/25 06:00 04/25/25 06:00 Oxygen Delivery Method Room Air Weight: 179 lb 3.773 oz Body Mass Index (BMI) 24.3 Intake & Output: Intake and Output for Last 24 Hours 04/23/25 04/24/25 04/25/25 23:59 23:59 23:59 Intake Total 1680 / 1680 2100 / 2100 360 / 360 Output Total 3125 / 3125 2500 / 2500 1600 / 1600 Balance -1445 / -1445 -400 / -400 -1240 / -1240 Lab / Micro Data 04/21/25 08:29 04/18/25 05:05 Labs: Laboratory Results - last 24 hr 04/24/25 11:13: POC Glucose 101 04/24/25 16:08: POC Glucose 79 04/24/25 21:05: POC Glucose 160 H 04/25/25 05:56: POC Glucose 164 H Micro: Microbiology 04/20/25 10:10 Stool Stool Occult Blood (DARRELL) - Final Occult Blood Positive 04/14/25 23:05 Urine, Clean Catch Urine Culture - Final Yeast, not Veronica albicans Social Homelessness:: Sheltered Physical Exam Const alert, oriented x3 and no apparent distress Resp normal respiratory effort, normal air movement and clear to auscultation bilaterally Effort and Inspection: Negative for tachypneic Cardio regular rate, regular rhythm and no gallops GI normal to inspection, nondistended, normoactive bowel sounds, soft to palpation and non-tender GI Narrative: No guarding with palpation Skin Skin Narrative: the incision is intact with no dehiscence, no purulent discharge and no tanmay-incisional erythema. Swelling is coming down in the stump and he now has 4 litigation legal secretary socks on and the cast is loose. the diabetic ulcer on the plantar surface of the R foot is still present. It is open and has a small amount of serous drainage. No purulent DC. No odor. No erythema around the wound. There is hyperkeratosis around the ulceration. The foot is cool to the touch and blusih purple. Has not been seen by podiatry yet. Consult was called on 04/19/25. Assessment & Plan Assessment/Plan (1) Debility: (2) Gas gangrene of extremity: (3) Hx of left BKA: (4) Anemia: QUALIFIERS: Anemia type: unspecified type Qualified Code(s): D64.9 - Anemia, unspecified (5) History of complete heart block: (6) Type 2 diabetes mellitus: QUALIFIERS: Diabetes mellitus longterm insulin use: with chiropractor assistant use Diabetes mellitus complication status: with circulatory complication Diabetes mellitus complication detail: with peripheral angiopathy with gangrene Qualified Code(s): E11.52 - Type 2 diabetes mellitus with diabetic peripheral angiopathy with gangrene; Z79.4 - office automation clerk (current) use of insulin (7) HFrEF (heart failure with reduced ejection fraction): (8) Diabetic foot ulcer: QUALIFIERS: Diabetic foot ulcer location: midfoot Diabetes mellitus type: type 2 Laterality: right Non-pressure ulcer stage: limited to breakdown of skin Qualified Code(s): E11.621 - Type 2 diabetes mellitus with foot ulcer; L97.411 - Non-pressure chronic ulcer of right heel and midfoot limited to breakdown of skin (9) CKD (chronic kidney disease): QUALIFIERS: Chronic kidney disease stage: stage 3 (moderate) Chronic kidney disease stage 3 subtype: stage 3a (GFR 45-59) Qualified Code(s): N18.31 - Chronic kidney disease, stage 3a (10) CAD (coronary artery disease): QUALIFIERS: Coronary Disease-Associated Artery/Lesion type: [place] artery [place] vs. 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 Continue therapy 2. DC SSI. Continue 7 units with each meal and Glargine 33 units at HS and Jardiance 25 mg daily. 3. CBC and BMP ordered for the a.m. 4. Await consult by Dr. De Luna. 5. He is not having phantom pain any longer. Will decrease the Neurontin to 100 mg at HS and if the pain does not reoccur will likely DC the HS dose also Charges/Coding Visit Charges Inpatient E&M: 43241 Subs Hosp L1
--- NOTE | 2025-04-25 09:14 | CASEMGMT ---
Addendum entered by Britney Junior 04/25/25 11:41: [facility] denied as pt is on their Do Not Return list. [facility] can accept. SW to update pt to ensure [facility] is FOC. Original Note: Social Work SW sent referrals to [facility] and [facility]. Britney Junior MSW ART GALLERY DIRECTOR
--- NOTE | 2025-04-25 09:40 | RAD_ITS ---
PROCEDURE: FOOT MIN 3 VIEWS 04/25/2025 REASON FOR EXAM: DIABETIC FOOT ULCER TECHNIQUE: FOOT MIN 3 VIEWS COMPARISON: None FINDINGS: The patient is status post transmetatarsal amputation. Diffuse soft tissue swelling. Degenerative changes at the tarsal joints. Calcaneal spurs. Ossification of the plantar fasciitis. RAD/Foot min 3 Views IMPRESSION: Status post transmetatarsal amputation. Diffuse soft tissue swelling. Reading Location: [facility]
--- NOTE | 2025-04-25 15:24 | PCM.CONS.GEN ---
Assessment & Plan Assessment/Plan (1) Diabetic foot ulcer: QUALIFIERS: Diabetic foot ulcer location: midfoot Diabetes mellitus type: type 2 Laterality: right Non-pressure ulcer stage: limited to breakdown of skin Qualified Code(s): E11.621 - Type 2 diabetes mellitus with foot ulcer; L97.411 - Non-pressure chronic ulcer of right heel and midfoot limited to breakdown of skin PLAN: Patient was examined and evaluated. All findings were discussed with the patient. All questions were answered to the patient satisfaction. Right foot 3 view x-rays: Evidence of transmetatarsal amputation status post with notable soft tissue defect to the plantar aspect of the TMA stump. No soft tissue or emphysema appreciated. No cortical erosion or concern for osteomyelitis at this time. Evidence of disuse osteopenia is also noted. Arthritic changes are appreciated throughout the ankle. No additional abnormalities or fractures are noted. After physical examination the patient has evidence of equinus contracture to the right lower extremity which is most likely the biomechanical issue that is causing the full-thickness wound to the plantar aspect of the transmetatarsal amputation stump. I did discuss with the patient conservative versus surgical treatment. He is understanding the need for surgical treatment but the patient will be transferring to SNF on 04/28/2025. I did educate the patient that we can perform this procedure as an outpatient when he is at the SNF which she is understanding of. The patient will follow-up with me in private office in approximately 1 week to 2 weeks for initial evaluation, continued wound care and surgical planning. Excisional debridement down to including subcutaneous tissue of the right plantar full-thickness wound with a number 3 mm dermal curette done without incident. Predebridement measurement was 0.5 x 0.3 x 0.2 cm. Postdebridement measurement was 0.8 x 0.5 x 0.4 cm. Healthy sanguinous drainage was noted after debridement. The right foot was wiped clean and patted dry. Betadine paint and bordered foam was applied. Additional bordered foam was applied to the dorsal aspect of the right foot followed by two 4 inch Ovidio bandage. I educated the patient continue strict blood sugar control. Medicine: On board, medical management At this time podiatry will sign off and follow from a distance due to the patient being discharged on 04/28/2025 to [facility]. Patient can follow-up in private office for initial evaluation and surgical discussion regarding the need for a tendo Achilles lengthening to the right lower extremity to help heal his 6-month-old plantar wound to the right foot. I educated the patient to continue strict blood sugar control and to maximize his blood sugar between 100 to 150 mg/dL which she is understanding of. Please reach out to Dr. De Luna with any questions or concerns. Thank you for the consultation expect point (2) Non-pressure chronic ulcer of other part of right foot with fat layer exposed: (3) Tightness of right heel cord: HPI Consult Data Date of Consult: 04/25/25 HPI Narrative Reason for Consultation: Right plantar foot ulceration HPI Narrative: MEY WARD, is a 80 M with PMH of DM II (on insulin for past 25 years), PVD, CAD, Hx of IWMI in 2019, PTCA/DELIA X 6 at [facility], complete heart block (resolved recently after Metoprolol 100 mg was discontinued), HLD, osteomyelitis Left foot, HTN, OA, CHF with reduced EF (ischemic CM with 35% EF in 2019 but, recently 40%), history of an occluded right radial artery that could not be opened and hx of R transmetatarsal amputation who was initially admitted to [facility] for infected Left foot wounds/diabetic ulcers/osteomyelitis. Patient recently had a below-knee amputation to the left lower extremity performed by Dr. Quan Ashley at [facility]. Since then the patient has been placed in rehab at [facility]. Prior to discharge from [facility] The patient was on vancomycin and Zosyn has been switched to p.o. amoxicillin and Bactrim. Podiatry was consulted for full-thickness wound to the plantar aspect of the right foot. [facility] Medical History Occlusion of right radial artery NSVT (nonsustained ventricular tachycardia) History of colon polyps Hyperlipidemia PAD (peripheral artery disease) History of complete heart block HFrEF (heart failure with reduced ejection fraction) Acute ST elevation myocardial infarction (STEMI) Gas gangrene of extremity MRSA (methicillin resistant staph aureus) culture positive GERD (gastroesophageal reflux disease) Osteoarthritis Anemia Ischemic cardiomyopathy CAD (coronary artery disease) CKD (chronic kidney disease) Muscle wasting Diabetes mellitus, type II Osteomyelitis Home Medications ?Medication ?Instructions ?Recorded ?Last Taken ?Type insulin glargine 100 unit/mL 33 unit subcut QHS DM 05/22/20 04/13/25 History subcutaneous solution Lactobacillus acidophilus 10 100 mmu cells PO DAILY gut health 04/14/25 Unknown History billion cell capsule acetaminophen 500 mg tablet 1,000 mg PO Q8 pain 04/14/25 Unknown History amoxicillin 500 mg capsule 500 mg PO Q8H ATB 04/14/25 04/14/25 History aspirin 81 mg tablet,delayed 81 mg PO DAILY heart health 04/14/25 04/14/25 History release (Adult Low Dose Aspirin) atorvastatin 80 mg tablet (Lipitor) 80 mg PO QHS cholestrol 04/14/25 04/14/25 History cholecalciferol (vitamin D3) 125 125 mcg PO DAILY supplement 04/14/25 Unknown History mcg (5,000 unit) tablet (Vitamin D3) clopidogrel 75 mg tablet 75 mg PO DAILY heart 04/14/25 04/14/25 History dapagliflozin propanediol 10 mg 10 mg PO DAILY CKD 04/14/25 04/14/25 History tablet (Farxiga) losartan 25 mg tablet (Cozaar) 25 mg PO DAILY blood pressure 04/14/25 04/14/25 History oxycodone 5 mg tablet 5 mg PO Q6H PRN pain 1-10 04/14/25 Unknown History pantoprazole 40 mg granules 40 mg PO BID reflux 04/14/25 04/14/25 History delayed-release for susp in packet (Protonix) spironolactone 25 mg tablet 12.5 mg PO DAILY blood pressure 04/14/25 Unknown History (Aldactone) sulfamethoxazole 800 1 tab PO Q12H ATB 04/14/25 04/14/25 History mg-trimethoprim 160 mg tablet (Bactrim DS) Allergy/AdvReac Type Severity Reaction Status Date / Time No Known Allergies Allergy Verified 01/30/24 09:31 Family History unable to obtain Surgical History Hx of bilateral cataract extraction History of appendectomy H/O colonoscopy with polypectomy History of transmetatarsal amputation of right foot History of percutaneous transluminal coronary angioplasty Hx of left BKA Social History household members: none and other details: He was and then his spouse passed. She had dementia. 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 CFT is brisk to the distal stump of the left foot. Skin temp gradient is warm to warm from proximal ankles to distal digit. Blanchable erythema to the dorsal right foot. Skin temperature great is warm to cool from proximal ankles to distal stump to the right foot. No focal increase noted. Neurological: Light touch intact. Protective station is absent. Patient does not respond to painful stimuli. Dermatological: Full-thickness wound to the plantar aspect of the right foot stump measuring 0.8 x 0.5 x 0.4 cm. Negative probe to bone. Wound base is granular in nature with hyperkeratotic periwound. No drainage, malodor or sign of infection. Excisional debridement down to including subcutaneous tissue of the right plantar full-thickness wound with a number 3 mm dermal curette done without incident. Predebridement measurement was 0.5 x 0.3 x 0.2 cm. Postdebridement measurement was 0.8 x 0.5 x 0.4 cm. Healthy sanguinous drainage was noted after debridement. Musculoskeletal: Range of motion is decreased in dorsiflexion secondary to tight Achilles tendon. No pain to palpation of full-thickness wound. No pain with calf pressure. Left lower extremity below-knee amputation with cast applied. Const alert, oriented x3 and no apparent distress Lab / Micro Data Attestation: I reviewed the patient's lab results. 04/21/25 08:29 04/18/25 05:05 Labs: Laboratory Results - last 24 hr 04/24/25 16:08: POC Glucose 79 04/24/25 21:05: POC Glucose 160 H 04/25/25 05:56: POC Glucose 164 H Imaging Radiology Impression Foot X-Ray 04/25/25 09:40 IMPRESSION: Status post transmetatarsal amputation. Diffuse soft tissue swelling. Reading Location: [facility]
[2025-04-25 18:00] VITALS: BP 124/64; PULSE 80; RESP 17; TEMP 36.9; O2SAT 99
[2025-04-25] MEDS: Insulin Glargine-YFGN 100 UNIT/ML Pen 33 UNIT SC (21:24)
--- NOTE | 2025-04-25 21:32 | NURSING ---
PT HS BG 148, ADMINISTERED 33 UNIT OF INSULIN. PT TOLERATED WELL
[2025-04-26 05:36] LABS: Hematocrit 36.6 % (40-54); Hemoglobin 11.5 g/dL (13.0-16.5); Immature Granulocytes Count 0.010 X10^3/uL (0.0-0.0); Mean Corp Hgb Conc 31.4 g/dL (32-36); Mean Corpuscular Volume 83.8 fL (80-94); Mean Platelet Vol. 10.9 fl (6.2-12.0); NRBC Flagged by Analyzer 0 % (0-5); Platelet Count 289 K/mm3 (150-450); RBC Distribution Width CV 20.0 % (11.6-14.6); RBC Distribution Width SD 60.8 fl (35.1-43.9); Red Blood Count 4.37 M/mm3 (4.6-6.2); White Blood Count 6.3 K/mm3 (4.4-11.0)
[2025-04-26 06:00] VITALS: BP 129/73; PULSE 82; RESP 18; TEMP 36.2; O2SAT 96
[2025-04-26 06:05] LABS: Anion Gap 10 (5-15); BUN 35 mg/dL (4-19); BUN/Creat Ratio 31.1 RATIO (10-20); Calcium,Total 9.1 mg/dL (7.6-11.0); Carbon Dioxide 24.0 mmol/L (21.0-32.0); Chloride 104 mmol/L (98-108); Estimated Creatinine Clearance 59.13 ml/min (50-250); Glucose 135 mg/dL (70-99); Potassium 5.0 mmol/L (3.3-5.1)
[2025-04-26] MEDS: Petrolatum 33% Tube 1 APPLIC TOPICAL (06:40)
[2025-04-26] MEDS: Senna/Docusate Sodium 1 Tablet 2 TABLET PO (08:52)
[2025-04-26] MEDS: Aspirin E.C. 81 MG Tablet PO (08:52)
[2025-04-26] MEDS: Lactobacillis Acidophilus 1 CAP PO (08:52)
[2025-04-26] MEDS: Heparin Injection (Vial) 5,000 UNIT/ML VIAL 5000 UNIT SC ×2 (08:52→21:42)
[2025-04-26] MEDS: Juven (unflavored) Packet 1 PACKET PO ×2 (08:52→17:40)
[2025-04-26] MEDS: Cholecalciferol (Vit D3) 125 MCG CAPSULE (5,000 UNITS) PO (08:52)
--- NOTE | 2025-04-26 10:22 | PCM.PROGNOTE ---
Subjective Subjective Afebrile VSS - Maintaining appropriate oxygen saturation on RA Oral intake - FOOD good FLUIDS good The blood sugar record was reviewed and the blood sugars are under excellent control. No hypoglycemia. Discussed with nursing -the diabetic ulcer on the plantar surface of the right foot was debrided by Dr. De Luna yesterday and he had some bleeding through the dressing last evening necessitating reinforcement of the dressing. Reviewed the THERAPY notes Medication list reviewed. I reviewed Dr. De Luna's note and appreciate his input........Govind will follow up with Dr. De Luna following DC from acute rehab in the office. All lab drawn this morning was personally reviewed. The white blood cell count is 6.3. Sodium is 138 and the potassium is 5.0. He is on Losartan 25 mg and Aldactone 12.5 mg. Potassium was running in the 4-4.5 range and there have been no changes to his medications so I suspect the sample may be hemolyzed. Will repeat a potassium in the morning. If it continues to be elevated will need to address the losartan/spironolactone dosage. Govind denies chest pain, cough, shortness of breath, phantom pain, nausea/vomiting/abdominal pain, constipation/diarrhea, right calf pain. He has occasional lightheadedness when he goes from lying down to sitting but it resolves after he sits for a minute. Denies pain in the right foot. Objective Data Objective Data Vital Signs: Vital Signs Temp Pulse Resp BP Pulse Ox O2 Del Method 97.1 F L 82 18 129/73 H 96 Room Air 04/26/25 06:00 04/26/25 06:00 04/26/25 06:00 04/26/25 06:00 04/26/25 06:00 04/26/25 06:00 Oxygen Delivery Method Room Air Weight: 179 lb 3.773 oz Body Mass Index (BMI) 24.3 Intake & Output: Intake and Output for Last 24 Hours 04/24/25 04/25/25 04/26/25 23:59 23:59 23:59 Intake Total 2100 / 2100 1420 / 1420 640 / 640 Output Total 2500 / 2500 2450 / 2450 400 / 400 Balance -400 / -400 -1030 / -1030 240 / 240 Lab / Micro Data 04/26/25 05:07 04/27/25 05:40 Labs: Laboratory Results - last 24 hr 04/25/25 16:08: POC Glucose 124 H 04/25/25 21:28: POC Glucose 148 H 04/26/25 05:07: WBC 6.3, RBC 4.37 L, Hgb 11.5 L, Hct 36.6 L, MCV 83.8, MCH 26.3 L, MCHC 31.4 L, RDW Std Deviation 60.8 H, RDW Coeff of Vicente 20.0 H, Plt Count 289, MPV 10.9, Immature Gran % (Auto) 0.200, Neut % (Auto) 55.2, Lymph % (Auto) 27.9, [place] % (Auto) 10.2 H, Eos % (Auto) 5.7 H, Baso % (Auto) 0.8, Absolute Neuts (auto) 3.5, Absolute Lymphs (auto) 1.76, Nucleated RBC % 0, Sodium 138, Potassium 5.0, Chloride 104, Carbon Dioxide 24.0, Anion Gap 10, BUN 35 H, Creatinine 1.13, Estim Creat Clear Calc 59.13, Est GFR (MDRD) Non-Af 67, BUN/Creatinine Ratio 31.1 H, Glucose 135 H, Calcium 9.1 04/26/25 07:10: POC Glucose 123 H Micro: Microbiology 04/20/25 10:10 Stool Stool Occult Blood (DARRELL) - Final Occult Blood Positive 04/14/25 23:05 Urine, Clean Catch Urine Culture - Final Yeast, not Veronica albicans Social Homelessness:: Sheltered Physical Exam Const alert, oriented x3 and no apparent distress Constitutional Narrative: Sitting in the recliner at the bedside General Appearance: cooperative Resp normal respiratory effort, normal air movement and clear to auscultation bilaterally Resp Narrative: No conversational dyspnea. Effort and Inspection: Negative for tachypneic Cardio regular rate, regular rhythm, no rub and no gallops Cardio Narrative: No ectopy GI normal to inspection, nondistended, normoactive bowel sounds, soft to palpation and non-tender GI Narrative: No guarding with palpation Extremity no calf tenderness Skin Rashes: no rashes Psych Appearance: appropriate Attitude: No agitated Assessment & Plan Assessment/Plan (1) Debility: (2) Gas gangrene of extremity: (3) Hx of left BKA: (4) Anemia: QUALIFIERS: Anemia type: unspecified type Qualified Code(s): D64.9 - Anemia, unspecified (5) History of complete heart block: (6) Type 2 diabetes mellitus: QUALIFIERS: Diabetes mellitus shelter insulin use: with dedicated intermodal truck driver use Diabetes mellitus complication status: with circulatory complication Diabetes mellitus complication detail: with peripheral angiopathy with gangrene Qualified Code(s): E11.52 - Type 2 diabetes mellitus with diabetic peripheral angiopathy with gangrene; Z79.4 - terminologist (current) use of insulin (7) HFrEF (heart failure with reduced ejection fraction): (8) Diabetic foot ulcer: QUALIFIERS: Diabetic foot ulcer location: midfoot Diabetes mellitus type: type 2 Laterality: right Non-pressure ulcer stage: limited to breakdown of skin Qualified Code(s): E11.621 - Type 2 diabetes mellitus with foot ulcer; L97.411 - Non-pressure chronic ulcer of right heel and midfoot limited to breakdown of skin (9) CKD (chronic kidney disease): QUALIFIERS: Chronic kidney disease stage: stage 3 (moderate) Chronic kidney disease stage 3 subtype: stage 3a (GFR 45-59) Qualified Code(s): N18.31 - Chronic kidney disease, stage 3a (10) CAD (coronary artery disease): QUALIFIERS: Coronary Disease-Associated Artery/Lesion type: [place] artery [place] vs. 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 Continue therapy 2. Recheck potassium in the morning. I suspect the potassium is elevated at 5 today due to hemolysis and not true hyperkalemia. 3. Will follow-up with Dr. De Luna to discuss tendo Achilles lengthening of the R achilles to help with healikng of the chronic plantar ulcer on the R foot. 4. DC planned to SNF ([facility]) on Thursday. Charges/Coding Visit Charges Inpatient E&M: 03088 Subs Hosp L1
[2025-04-26] MEDS: Povidone-Iodine Swabstick 1 PACKET TOPICAL (11:19)
--- NOTE | 2025-04-26 16:01 | CASEMGMT ---
Social Work SW completed advance directives. Original and copies provided to the pt. Copy placed on chart. Britney Junior PARLIAMENTARY ARCHIVIST REGIONAL SERVICE MANAGER
--- NOTE | 2025-04-26 16:02 | CASEMGMT ---
Social Work SW spoke with pt about DC plans. Explained appeal rights and pt denied to appeal. SW informed pt that [facility] denied and [facility] can accept. SW offered to refer to other SNFs. Pt agreeable to [facility] for DC 04/28. SW to finalize DC plans and schedule transport. Pt appreciative. - SW notified [facility]. Scheduled w/c transport through [facility] for 1300. PASRR completed. Plan: DC 04/28 to [facility], skilled Britney Junior STORE ADMINISTRATIVE ASSISTANT MACHINE STEAK TENDERIZER
[2025-04-26 17:04] VITALS: BP 136/69; PULSE 78; RESP 16; TEMP 36.8; O2SAT 99
[2025-04-26] MEDS: Insulin Glargine-YFGN 100 UNIT/ML Pen 33 UNIT SC (21:48)
[2025-04-26 22:00] VITALS: PULSE 82; RESP 16; O2SAT 98
[2025-04-27 06:11] LABS: Potassium 4.3 mmol/L (3.3-5.1)
--- NOTE | 2025-04-27 06:56 | NURSING ---
Attempt to administer 0600 meds at this time, patient unavailable, working with therapy at this time.
[2025-04-27] MEDS: Aspirin E.C. 81 MG Tablet PO (08:07)
[2025-04-27] MEDS: Petrolatum 33% Tube 1 APPLIC TOPICAL (08:14)
[2025-04-27] MEDS: Lactobacillis Acidophilus 1 CAP PO (09:45)
[2025-04-27] MEDS: Heparin Injection (Vial) 5,000 UNIT/ML VIAL 5000 UNIT SC ×2 (09:47→22:22)
[2025-04-27] MEDS: Cholecalciferol (Vit D3) 125 MCG CAPSULE (5,000 UNITS) PO (09:48)
--- NOTE | 2025-04-27 15:05 | PCM.TXEXTCAR ---
Diet Diet Order/Speech Therapy: INPATIENT Hospital Diet / Speech Therapy Order(s) 04/18/25 10:21 Diet: Carbohydrate Controlled Dietary Modifications:: Cardiac / Heart Healthy Diet Comments: smaller portion of starch, 1.5 portion of the protein Routine Orders/Code Status Enema Type: Fleetz Enema Frequency: Daily PRN Suppository Type: Dulcolax 10mg Suppository Frequency: Daily PRN Routine Lab Work: - (Iron, TIBC, percent iron saturation, ferritin and a retic count. ) Code Status: Full Code DC O2, CPAP, BIPAP needs Home O2 Discharge instructions: No Wound(s) LLE: Wound Type: Surgical Incision Rt Foot x3: Wound Type: Neuropathic/Diabetic Foot Ulcer Rt foot middle bottom: Wound Type: Neuropathic/Diabetic Foot Ulcer rt heel: Wound Type: Neuropathic/Diabetic Foot Ulcer Rt Foot top: Wound Type: Neuropathic/Diabetic Foot Ulcer Therapies Weight Bearing: Full weight bearing (Full wt bearing on the RLE. Has had a L BKA. Use walker for ambulation/hopping.) Extremity Affected:: Left Lower (S/P BKA) Physical Therapy: Eval and Treat Occupational Therapy: Eval and Treat Problem/Diagnosis (1) Debility: Status: Acute Code(s): R53.81 - Other malaise Plan: Continue PT/OT at [facility]. Will follow up with Dr. Quan Ashley for L BKA. Gt are intact at the time of DC from rehab. (2) Gas gangrene of extremity: Status: Resolved Code(s): A48.0 - Gas gangrene Plan: S/ P BKA. Finished with antibiotics. Comment: S/P left BKA on 04/10/25. (3) Hx of left BKA: Status: Acute Code(s): Z89.512 - Acquired absence of left leg below knee Comment: 04/10/25 at [facility] by Dr. Quan Ashley (4) Anemia: Status: Chronic Code(s): D64.9 - Anemia, unspecified Plan: Etiology uncertain. Possibly due to chronic infection but, MCV has been decreasing over the past 2 years and the RDW is increased. Would check an iron panel as an OP. He came to rehab on Protonix 40 mg BID for GERD. Stool is heme +. May need a GI evaluation at some point. HGBA is 11.5 at DC from rehab. It was 12.7 prior to recent surgery. (5) History of complete heart block: Status: Resolved Code(s): Z86.79 - Personal history of other diseases of the circulatory system Plan: Resolved with discontinuation of the beta marti. More likely than not has SSS and will likely need a PM at some point going forward. Comment: Resolved with discontinuation of metoprolol succinate 100 mg daily (6) Type 2 diabetes mellitus: Status: Chronic Code(s): E11.9 - Type 2 diabetes mellitus without complications Plan: HGBA1C was 7.9 while on rehab. It was 7.4 on 01/28/25. He has been on a carb controlled/cardiac diet and has been getting smaller carb portion and 1.5 portion of protein for healing. BS's are well controlled with no hypoglycemia at UT from rehab. Getting medication including chart 25 mg daily, glargine 33 units at at bedtime and 6 units Lispro with meals. (7) HFrEF (heart failure with reduced ejection fraction): Status: Chronic Code(s): I50.20 - Unspecified systolic (congestive) heart failure Plan: Has had no CHF sx while on rehab. Comment: 40 +/- 5% on MONIKA on 04/11/25 at [facility]. (8) Diabetic foot ulcer: Status: Chronic Code(s): E11.621 - Type 2 diabetes mellitus with foot ulcer; L97.509 - Non-pressure chronic ulcer of other part of unspecified foot with unspecified severity Plan: R foot. Has had a transmet in the past. [facility]. The ulcer on the plantar surface of the R foot was debrided on 04/25/25. Dr. De Luna is recommending a tendo Achilles lengthening to help heal the plantar ulcer (which has been non-healing for 6 months). Govind will follow up with Dr. De Luna in the office post UT from rehab. Comment: open plantar surface of the R foot and closed on the dorsal surface of the R foot. (9) CKD (chronic kidney disease): Status: Chronic Code(s): N18.9 - Chronic kidney disease, unspecified Plan: Stage II to 3a. Stable. Creat at UT is good at 1.13 with a BUN of 35. The BUN/creatinine ratio was elevated secondary to a high-protein diet. (10) CAD (coronary artery disease): Status: Chronic Code(s): I25.10 - Atherosclerotic heart disease of [place] coronary artery without angina pectoris (11) History of percutaneous transluminal coronary angioplasty: Status: Chronic Code(s): Z98.61 - Coronary angioplasty status Comment: 2020 at [facility]. Pt tells me that he had 6 stents. (12) PAD (peripheral artery disease): Status: Chronic Code(s): I73.9 - Peripheral vascular disease, unspecified Plan: PVR of the RLE was done while on rehab and showed Right RADHA 1.26, normal. Doppler/PVR waveforms of the right leg normal at rest. TBI diminished, pedal/digit disease vs spasm. Left RADHA not obtained. Doppler/PVR waveforms of the left thigh normal at rest. Comment: When he is dehydrated the L foot and the hands get very cool to the touch and appear cyanotic......? whether he has Raynauds? 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 He has heme + stool and is chronically anemic. Iron studies ordered to be done at transfer to [facility]. IF he is iron deficient would consider a GI consult. Plan 1. Transfer to SNF for additional therapy prior to returning home to live independently. He is being followed by [facility] who is supplying hide buffer socks and will eventually get a prosthesis. 2. follow up with Dr. Quan Ashley for the BKA and with Dr. De Luna for the diabetic ulcer of the R foot. 3. Follow up with PCP following DC from SNF and with cardiology. 4. Serum iron, TIBC, percent iron saturation, ferritin and retic count following transfer to [facility]. Hemoglobin is stable at 11.5 at discharge from rehab. Allergies/Procedures Done in Hospital Allergies No Known Allergies Allergy (Verified 01/30/24 09:31) Procedures: - (PVR RLE. ) Type of Care/Length of Stay Estimated LOS: More Than 30 Days Type of Care Needed: Skilled Rehab Potential: Good Prognosis: Good Additional Orders/Day of Discharge H&P will serve as current which was dated: 04/14/25 Day of Discharge: 04/28/25 Dietary and Speech Recommendations Dietitian Recommendations/Changes: Continue with Carb Controlled with Cardiac modifier diet at this time. Continue with Humberto BID with medpass to aid in wound healing. Continue ~1-2of protein/meal on diet order to help increase protein intakes. Will continue to follow, monitor oral intakes and weight trends as available and modify nutrition interventions as needed/tolerated. Follow Up Care Please follow up with your Primary Care Physician in: Following DC from SNF Please Follow Up With: Dr. Quan Ashley When: 05/01/2025 at 1 PM Please Follow Up With: Maged De Luna DPM When: 05/01/2025 at 9:15 AM Discharge Plan Admission Admit Date/Time: 04/14/25 12:58 Primary Reason for Your Visit: Debility secondary to left BKA Attending Provider: Leandra Thomas Primary Care Provider: Didier Vann Consulting Providers: Giles Beard Instructions Additional Instructions / Restrictions: 1. With his hx of PVD, CAD, non-healing diabetic ulcer R foot and now L BKA would like to see the HGBA1C consistently 7 or <. 2. He has chronic anemia. MCV has been decreasing over the past 2 years. He has heme + stool. Recommend iron studies and possible GI follow up. He has known GERD and has been taking Protonix 40 mg BID and still has heme + stool. Discharge Orders/Prescriptions Prescriptions: New ascorbic acid (vitamin C) 500 mg Tablet 500 mg PO BIDCM Qty: 60 0RF Rx Instructions: OK to DC after 1 month. Used for wound healing. bisacodyl 10 mg Suppository 10 mg KS X1 PRN (Reason: Constipation) Qty: 1 0RF Glucagon Emergency Kit (human) 1 mg Recon Soln 1 mg IM X1 PRN (Reason: Hypoglycemia) Qty: 1 0RF multivitamin Tablet 1 tab PO LUNCH Qty: 1 0RF magnesium hydroxide 400 mg/5 mL Suspension 30 ml PO X1 PRN (Reason: Constipation) Qty: 30 0RF Humberto (with collagen) 7-7-1.5 gram Powder In Packet 1 packet PO BIDCM Qty: 60 0RF Rx Instructions: OK to DC after 1 month Povidone-Iodine Swabstick [Betadine Swabstick] 1 packet topical DAILY Qty: 1 0RF Rx Instructions: apply to the area around the diabetic ulcer on the R foot once daily with dressing changes. sennosides-docusate sodium [Stimulant Laxative Plus] 8.6-50 mg Tablet 2 tab PO BID PRN (Reason: Constipation) Qty: 1 0RF vitamin E (dl, acetate) 180 mg (400 unit) Capsule 180 mg PO DAILYCM Qty: 30 0RF Rx Instructions: OK to DC after 1 month insulin aspart U-100 100 unit/mL (3 mL) insulin pen 7 unit subcut TID Qty: 15 0RF gabapentin 100 mg capsule 200 mg PO QHS Qty: 60 0RF Continued insulin glargine 100 unit/mL solution 33 unit subcut QHS Patient Comments: INJECT 40 UNITS SUBCUTANEOUSLY AT BEDTIME (DISCARD INSULIN IN VIAL AFTER OPEN FOR 28 DAYS) acetaminophen 500 mg tablet 1,000 mg PO Q8 aspirin [Adult Low Dose Aspirin] 81 mg tablet,delayed release (DR/EC) 81 mg PO DAILY atorvastatin [Lipitor] 80 mg tablet 80 mg PO QHS dapagliflozin propanediol [Farxiga] 10 mg tablet 10 mg PO DAILY Lactobacillus acidophilus 10 billion cell capsule 100 mmu cells PO DAILY losartan [Cozaar] 25 mg tablet 25 mg PO DAILY pantoprazole [Protonix] [address] for susp in packet 40 mg PO BID cholecalciferol (vitamin D3) [Vitamin D3] 125 mcg (5,000 unit) tablet 125 mcg PO DAILY spironolactone [Aldactone] 25 mg tablet 12.5 mg PO DAILY clopidogrel 75 mg tablet 75 mg PO DAILY Qty: 1 0RF oxycodone 5 mg tablet 5 mg PO Q6H PRN (Reason: pain 1-10) 5 Days Qty: 10 0RF Discontinued amoxicillin 500 mg capsule 500 mg PO Q8H sulfamethoxazole-trimethoprim [Bactrim DS] 800-160 mg tablet 1 tab PO Q12H Referrals / Follow Up: [facility] [Other] - 05/01/25 1:00 pm Maged De Luna DPM [Med Staff - Active Staff] - 05/01/25 9:15 am () Didier Vann MD [Primary Care Provider] - (dc to SNF) Disposition Disposition (needs filled in before D/C Order can be placed): [facility] (4) Anemia Qualifiers: Anemia type: unspecified type Qualified Code(s): D64.9 - Anemia, unspecified (6) Type 2 diabetes mellitus Qualifiers: Diabetes mellitus complication detail: with peripheral angiopathy with gangrene Diabetes mellitus complication status: with circulatory complication Diabetes mellitus terminal press operator insulin use: with senior care use Qualified Code(s): E11.52 - Type 2 diabetes mellitus with diabetic peripheral angiopathy with gangrene; Z79.4 - terminal make up operator (current) use of insulin (8) Diabetic foot ulcer Qualifiers: Diabetes mellitus type: type 2 Diabetic foot ulcer location: midfoot Laterality: right Non-pressure ulcer stage: limited to breakdown of skin Qualified Code(s): E11.621 - Type 2 diabetes mellitus with foot ulcer; L97.411 - Non-pressure chronic ulcer of right heel and midfoot limited to breakdown of skin (9) CKD (chronic kidney disease) Qualifiers: Chronic kidney disease stage: stage 3 (moderate) Chronic kidney disease stage 3 subtype: stage 3a (GFR 45-59) Qualified Code(s): N18.31 - Chronic kidney disease, stage 3a (10) CAD (coronary artery disease) Qualifiers: Associated angina: without angina Coronary Disease-Associated Artery/Lesion type: [place] artery [place] vs. transplanted heart: [place] heart Qualified Code(s): I25.10 - Atherosclerotic heart disease of [place] coronary artery without angina pectoris (13) Hyperlipidemia Qualifiers: Hyperlipidemia type: unspecified Qualified Code(s): E78.5 - Hyperlipidemia, unspecified (17) GERD (gastroesophageal reflux disease) Qualifiers: Esophagitis presence: esophagitis presence not specified Qualified Code(s): K21.9 - Gastro-esophageal reflux disease without esophagitis
--- NOTE | 2025-04-27 15:53 | PN_ITS ---
Subjective Subjective Afebrile Vital signs stable Maintaining appropriate oxygen saturation on room air The blood sugar record was reviewed and all blood sugars are under 160 with no hypoglycemia He is complaining of some burning pain in the Left thigh. Denies phantom pain in the left foot. Alert and oriented X 3. NAD Lungs-clear to auscultation. No conversational dyspnea. Not tachypneic. Heart-regular rate and rhythm, no gallop, no ectopy Abdomen-soft, nontender, nondistended, no guarding with palpation, having regular bowel movements The edema over the dorsum of the right foot is improving. There is a small slitlike opening over the dorsum with a tiny amount of serous drainage. The diabetic ulcer on the plantar surface of the right foot has no bleeding today, no purulent discharge and no pain with palpation around the area. Objective Data Objective Data Vital Signs: Vital Signs Temp Pulse Resp BP Pulse Ox O2 Del Method 98.2 F 82 16 136/69 H 98 Room Air 04/26/25 17:04 04/26/25 22:00 04/26/25 22:00 04/26/25 17:04 04/26/25 22:00 04/26/25 22:00 Oxygen Delivery Method Room Air Weight: 179 lb 3.773 oz Body Mass Index (BMI) 24.3 Intake & Output: Intake and Output for Last 24 Hours 04/25/25 04/26/25 04/27/25 23:59 23:59 23:59 Intake Total 1420 / 1420 1240 / 1240 600 / 600 Output Total 2450 / 2450 700 / 1300 1200 / 1200 Balance -1030 / -1030 540 / -60 -600 / -600 Lab / Micro Data 04/26/25 05:07 04/27/25 05:40 Labs: Laboratory Results - last 24 hr 04/26/25 16:35: POC Glucose 89 04/26/25 21:47: POC Glucose 155 H 04/27/25 05:40: Potassium 4.3 04/27/25 07:38: POC Glucose 156 H Micro: Microbiology 04/20/25 10:10 Stool Stool Occult Blood (DARRELL) - Final Occult Blood Positive 04/14/25 23:05 Urine, Clean Catch Urine Culture - Final Yeast, not Veronica albicans Social Homelessness:: Sheltered Assessment & Plan Assessment/Plan (1) Debility: PLAN: Continue PT/OT at [facility]. Will follow up with Dr. Quan Ashley for L BKA. Gt are intact at the time of DC from rehab. (2) Gas gangrene of extremity: PLAN: S/ P BKA. Finished with antibiotics. (3) Hx of left BKA: (4) Anemia: QUALIFIERS: Anemia type: unspecified type Qualified Code(s): D 64.9 - Anemia, unspecified PLAN: Etiology uncertain. Possibly due to chronic infection but, MCV has been decreasing over the past 2 years and the RDW is increased. Would check an iron panel as an OP. He came to rehab on Protonix 40 mg BID for GERD. Stool is heme +. May need a GI evaluation at some point. HGBA is 11.5 at [place] from rehab. It was 12.7 prior to recent surgery. (5) History of complete heart block: PLAN: Resolved with discontinuation of the beta marti. More likely than not has SSS and will likely need a PM at some point going forward. 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 It was 7.4 on 01/28/25. He has been on a carb controlled/cardiac diet and has been getting smaller carb portion and 1.5 portion of protein for healing. BS's are well controlled with no hypoglycemia at [place] from rehab. Getting medication including chart 25 mg daily, glargine 33 units at at bedtime and 6 units Lispro with meals. (7) HFrEF (heart failure with reduced ejection fraction): PLAN: Has had no CHF sx while on rehab. (8) Diabetic foot ulcer: QUALIFIERS: Diabetic foot ulcer location: midfoot Diabetes mellitus type: type 2 Laterality: right Non-pressure ulcer stage: limited to breakdown of skin Qualified Code(s): E11.621 - Type 2 diabetes mellitus with foot ulcer; L97.411 - Non-pressure chronic ulcer of right heel and midfoot limited to breakdown of skin PLAN: R foot. Has had a transmet in the past. Se[facility] by [facility]. The ulcer on the plantar surface of the R foot was debrided on 04/25/25. Dr. De Luna is recommending a tendo Achilles lengthening to help heal the plantar ulcer (which has been non-healing for 6 months). Govind will follow up with Dr. De Luna in the office post DC from rehab. (9) CKD (chronic kidney disease): QUALIFIERS: Chronic kidney disease stage: stage 3 (moderate) C hronic kidney disease stage 3 subtype: stage 3a (GFR 45-59) Qualified Code(s): N18.31 - Chronic kidney disease, stage 3a PLAN: Stage II to 3a. Stable. Creat at DC is good at 1.13 with a BUN of 35. The BUN/creatinine ratio was elevated secondary to a high-protein diet. (10) CAD (coronary artery disease): QUALIFIERS: Coronary Disease-Associated Artery/Lesion type: [place] artery [place] vs. transplanted heart: [place] heart Associated angina: without angina Qualified Code(s): I25.10 - Atherosclerotic heart disease of [place] coronary artery without angina pectoris (11) History of percutaneous transluminal coronary angioplasty: (12) PAD (peripheral artery disease): PLAN: PVR of the RLE was done while on rehab and showed Right RADHA 1.26, normal. Doppler/PVR waveforms of the right leg normal at rest. TBI diminished, pedal/digit disease vs spasm. Left RADHA not obtained. Doppler/PVR waveforms of the left thigh normal at rest. 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 He has heme + stool and is chronically anemic. Iron studies ordered to be done at transfer to SNF. IF he is iron deficient would consider a GI consult. (18) Heme positive stool: (19) Phantom limb pain: PLAN: Plan 1. [facility] for additional therapy prior to returning home to live independently. 2. If he continues to c/o burning in the R anterior thigh tomorrow will increase the Gabapentin to 100 mg BID again prior to DC. Charges/Coding Visit Charges Inpatient E&M: 71400 Subs Hosp L1
[2025-04-27] MEDS: Povidone-Iodine Swabstick 1 PACKET TOPICAL (17:36)
[2025-04-27 18:00] VITALS: BP 107/65; PULSE 88; RESP 17; TEMP 36.6; O2SAT 98
[2025-04-27 22:00] VITALS: PULSE 83; RESP 16; O2SAT 99
[2025-04-27 22:15] VITALS: BP 109/62; PULSE 83; RESP 16; TEMP 36.4; O2SAT 99
[2025-04-27] MEDS: Insulin Glargine-YFGN 100 UNIT/ML Pen 33 UNIT SC (22:22)
[2025-04-28 06:00] VITALS: BP 108/57; PULSE 86; RESP 15; TEMP 36.9; O2SAT 97; BMI 23.9
[2025-04-28] MEDS: Petrolatum 33% Tube 1 APPLIC TOPICAL (06:32)
--- NOTE | 2025-04-28 08:25 | PCM.DC.SUM ---
Providers Date of Admission: 04/14/25 Date of Discharge: 04/28/25 Primary Care Physician: Dr. Didier Vann MD Consultations 04/19/25 12:01 Consult: Podiatry Routine Consulting Provider: Eleuterio Correa Reason for Consult: diabetic ulcer plantar surface R foot EMERGENT Consult: No Notified: No Date Notified: 04/19/25 Time Notified: 12:02 04/25/25 09:04 Consult: Podiatry Routine Consulting Provider: Giles Beard Reason for Consult: Diabetic Foot Ulcer Rt Palntar Surface EMERGENT Consult: No Notified: Yes Date Notified: 04/25/25 Time Notified: 09:05 Method of Notification: Verbal Reason For Visit: LEFT BELOW THE KNEE AMPUTATION Diagnosis Discharge Diagnosis (1) Debility: Status: Acute Code(s): R53.81 - Other malaise Plan: Continue PT/OT at [facility]. Will follow up with Dr. Quan Ashley for L BKA. [place] are intact at the time of DC from rehab. (2) Gas gangrene of extremity: Status: Resolved Code(s): A48.0 - Gas gangrene Plan: S/ P BKA. Finished with antibiotics. (3) Hx of left BKA: Status: Acute Code(s): Z89.512 - Acquired absence of left leg below knee (4) Anemia: Status: Chronic Code(s): D64.9 - Anemia, unspecified Qualifiers: Anemia type: unspecified type Qualified Code(s): D64.9 - Anemia, unspecified Plan: Etiology uncertain. Possibly due to chronic infection but, MCV has been decreasing over the past 2 years and the RDW is increased. Would check an iron panel as an OP. He came to rehab on Protonix 40 mg BID for GERD. Stool is heme +. May need a GI evaluation at some point. HGBA is 11.5 at DC from rehab. It was 12.7 prior to recent surgery. (5) History of complete heart block: Status: Resolved Code(s): Z86.79 - Personal history of other diseases of the circulatory system Plan: Resolved with discontinuation of the beta marti. More likely than not has SSS and will likely need a PM at some point going forward. (6) Type 2 diabetes mellitus: Status: Chronic Code(s): E11.9 - Type 2 diabetes mellitus without complications Qualifiers: Diabetes mellitus termite treater helper insulin use: with termite treater helper use Diabetes mellitus complication status: with circulatory complication Diabetes mellitus complication detail: with peripheral angiopathy with gangrene Qualified Code(s): E11.52 - Type 2 diabetes mellitus with diabetic peripheral angiopathy with gangrene; Z79.4 - shelter (current) use of insulin Plan: HGBA1C was 7.9 while on rehab. It was 7.4 on 01/28/25. He has been on a carb controlled/cardiac diet and has been getting smaller carb portion and 1.5 portion of protein for healing. BS's are well controlled with no hypoglycemia at DC from rehab. Getting medication including chart 25 mg daily, glargine 33 units at at bedtime and 6 units Lispro with meals. (7) HFrEF (heart failure with reduced ejection fraction): Status: Chronic Code(s): I50.20 - Unspecified systolic (congestive) heart failure Plan: Has had no CHF sx while on rehab. (8) Diabetic foot ulcer: Status: Chronic Code(s): E11.621 - Type 2 diabetes mellitus with foot ulcer; L97.509 - Non-pressure chronic ulcer of other part of unspecified foot with unspecified severity Qualifiers: Diabetic foot ulcer location: midfoot Diabetes mellitus type: type 2 Laterality: right Non-pressure ulcer stage: limited to breakdown of skin Qualified Code(s): E11.621 - Type 2 diabetes mellitus with foot ulcer; L97.411 - Non-pressure chronic ulcer of right heel and midfoot limited to breakdown of skin Plan: R foot. Has had a transmet in the past. [facility]. The ulcer on the plantar surface of the R foot was debrided on 04/25/25. Dr. De Luna is recommending a tendo Achilles lengthening to help heal the plantar ulcer (which has been non-healing for 6 months). Govind will follow up with Dr. De Luna in the office post DC from rehab. (9) CKD (chronic kidney disease): Status: Chronic Code(s): N18.9 - Chronic kidney disease, unspecified Qualifiers: Chronic kidney disease stage: stage 3 (moderate) Chronic kidney disease stage 3 subtype: stage 3a (GFR 45-59) Qualified Code(s): N18.31 - Chronic kidney disease, stage 3a Plan: Stage II to 3a. Stable. Creat at DC is good at 1.13 with a BUN of 35. The BUN/creatinine ratio was elevated secondary to a high-protein diet. (10) CAD (coronary artery disease): Status: Chronic Code(s): I25.10 - Atherosclerotic heart disease of [place] coronary artery without angina pectoris Qualifiers: Coronary Disease-Associated Artery/Lesion type: [place] artery [place] vs. transplanted heart: [place] heart Associated angina: without angina Qualified Code(s): I25.10 - Atherosclerotic heart disease of [place] coronary artery without angina pectoris (11) History of percutaneous transluminal coronary angioplasty: Status: Chronic Code(s): Z98.61 - Coronary angioplasty status (12) PAD (peripheral artery disease): Status: Chronic Code(s): I73.9 - Peripheral vascular disease, unspecified Plan: PVR of the RLE was done while on rehab and showed Right RADHA 1.26, normal. Doppler/PVR waveforms of the right leg normal at rest. TBI diminished, pedal/digit disease vs spasm. Left RADHA not obtained. Doppler/PVR waveforms of the left thigh normal at rest. 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 He has heme + stool and is chronically anemic. Iron studies ordered to be done at transfer to [facility]. IF he is iron deficient would consider a GI consult. (18) Radicular leg pain: Status: Acute Code(s): M54.10 - Radiculopathy, site unspecified Plan: Initially c/o pain in the left foot. Was started on Gabapentin 100 mg BID. The pain resolved and the dose was tapered to 100 mg at HS. On 100 mg Q HS he had no phantom pain in the Left foot but, he started c/o some burning pain in the left thigh. This bothers him at night.......it improves with movement. On the day of DC from rehab the dose was increased to 200 mg at HS to help get him through the night without awakening in pain. Plan 1. Transfer to [facility] for additional therapy prior to returning home to live independently. He is being followed by [facility] who is supplying insurance verification specialist socks and will eventually get a prosthesis. 2. follow up with Dr. Quan Ashley for the BKA and with Dr. De Luna for the diabetic ulcer of the R foot. 3. Follow up with PCP following DC from SNF and with Dr. Harrell from cardiology. 4. Serum iron, TIBC, percent iron saturation, ferritin and retic count following transfer to the [facility]. Hemoglobin is stable at 11.5 at discharge from rehab. Medications at Discharge Home Medications insulin glargine 100 unit/mL subcutaneous solution 33 unit subcut QHS DM 05/22/20 Lactobacillus acidophilus 10 billion cell capsule 100 mmu cells PO DAILY gut health 04/14/25 acetaminophen 500 mg tablet 1,000 mg PO Q8 pain 04/14/25 aspirin 81 mg tablet,delayed release (Adult Low Dose Aspirin) 81 mg PO DAILY heart health 04/14/25 atorvastatin 80 mg tablet (Lipitor) 80 mg PO QHS cholestrol 04/14/25 cholecalciferol (vitamin D3) 125 mcg (5,000 unit) tablet (Vitamin D3) 125 mcg PO DAILY supplement 04/14/25 dapagliflozin propanediol 10 mg tablet (Farxiga) 10 mg PO DAILY CKD 04/14/25 losartan 25 mg tablet (Cozaar) 25 mg PO DAILY blood pressure 04/14/25 pantoprazole 40 mg granules delayed-release for susp in packet (Protonix) 40 mg PO BID reflux 04/14/25 spironolactone 25 mg tablet (Aldactone) 12.5 mg PO DAILY blood pressure 04/14/25 Povidone-Iodine Swabstick [Betadine Swabstick] 1 packet topical DAILY #1 packet 04/27/25 arginine 7 gram-glutam 7 gram-CaHMB 1.5 [id number] oral pwd pkt (Humberto (with collagen)) 1 packet PO BIDCM #60 ea 04/27/25 ascorbic acid (vitamin C) 500 mg tablet 500 mg PO BIDCM #60 tabs 04/27/25 bisacodyl 10 mg rectal suppository 10 mg ID X1 PRN Constipation #1 ea 04/27/25 clopidogrel 75 mg tablet 75 mg PO DAILY heart #1 TAB 04/27/25 glucagon 1 mg solution for injection (Glucagon Emergency Kit) 1 mg IM X1 PRN Hypoglycemia #1 ea 04/27/25 magnesium hydroxide 400 mg/5 mL oral suspension 30 ml PO X1 PRN Constipation #30 mL 04/27/25 multivitamin 1 tab PO LUNCH #1 TAB 04/27/25 oxycodone 5 mg tablet 5 mg PO Q6H PRN pain 1-10 5 days #10 tabs 04/27/25 sennosides 8.6 mg-docusate sodium 50 mg tablet (Stimulant Laxative Plus) 2 tab PO BID PRN Constipation #1 TAB 04/27/25 vitamin E (dl, acetate) 180 mg (400 unit) capsule 180 mg PO DAILYCM #30 caps 04/27/25 gabapentin 100 mg capsule 200 mg (2 x 100 mg) PO QHS #60 caps 04/28/25 insulin aspart U-100 100 unit/mL (3 mL) subcutaneous pen 7 unit (0.07 mL) subcut TID #15 mL 04/28/25 Hospital Course Operations - (Left BKA by Dr. Quan Ashley on 04/10/2025) Procedures Cardiac catheterization (04/10/2025 at [facility]. It showed an occluded right coronary artery collateralized from the left system, patent proximal LAD stent with moderate diffuse disease in the left system and no focal obstructive lesions noted. The left main was a large caliber vessel with mild diffus) and Transthoracic echo (04/11/2025 at at [facility]. The left ventricle was of normal size with an EF of 40+/- 5%. The right ventricle was normal in size and there was no significant valvular heart disease.) Summary of Care Provided Minutes Spent on Discharge: 50 Hospital Course: MEY WARD, is a 80 YO M with a PMH of DM II (on insulin for past 25 years), PVD, CAD, Hx of IWMI in 2019, PTCA/DELIA X 6 at [facility], complete heart block (resolved recently after Metoprolol 100 mg was discontinued), HLD, osteomyelitis Left foot, HTN, OA, CHF with reduced EF (ischemic CM with 35% EF in 2019 but, recently 40%), history of an occluded right radial artery that could not be opened and hx of R transmetatarsal amputation who was initially admitted to [facility] for infected Left foot wounds/diabetic ulcers/osteomyelitis. He had complete heart block on a OP heart monitor ordered by Dr. Harrell. BKA was recommended and Mr. Ward was agreeable. He was transferred to [facility] for consideration for PM and for BKA. With discontinuation of the beta marti the CHB resolved and he did not require PM. On 04/10/25 he had a cardiac cath and it showed an occluded right coronary artery collateralized from the left system, patent proximal LAD stent with moderate diffuse disease in the left system and no focal obstructive lesions noted. The left ventricular end-diastolic pressure was normal. The left main was a large caliber vessel with mild diffuse mildly calcified disease. The circumflex was a nondominant vessel with a single bifurcating obtuse marginal branch with a ostial to proximal calcified 50% stenosis. Distal vessel had mild diffuse disease. He was then taken to the OR on 04/10/25 for a L BKA performed by Dr. Quan Ashley. Echocardiogram on 04/11/2025 showed the left ventricle to be of normal size with an EF of 40+/- 5%. The right ventricle was normal in size. There was no significant valvular heart disease. Prior to discharge from [facility] He was transitioned from intravenous vancomycin and Zosyn to PO amoxicillin and Bactrim which he was to take for a total of 5 days. He completed the antibiotics while on rehab. While at [facility] he was on Heparin 5,000 units SQ Q12H for DVT prophylaxis and this was continued on rehab. Govind lives alone and has 4 steps to enter his house and 13 steps up to the bedroom/BR. He has a half bath on the first floor. He has 2 daughters but, neither lives locally. He was transferred to the acute inpt rehab unit at [facility] on 04/14/25 for 3 hours of therapy daily for strengthening and WC training/mobility. At admission to rehab Govind c/o some phantom type pain in the Left foot. He was started on Gabapentin 100 mg BID and the pain resolved so the Gabapentin was decreased to 100 mg at at bedtime which worked for a while. One day prior to discharge he started complaining of some burning pain in his left buttock and left thigh that would wake him up at night. The pain would improve with movement. It did not bother him during the day. The dose of Gabapentin was increased to 200 mg At HS prior to DC from rehab. At admission to rehab he had a diabetic ulcer on the plantar surface of the R foot that had been present for at least 6 months. The breakdown was limited to the skin and there was a hyperkeratotic rim around the wound. He had dermatitis on the dorsum of the R foot and a few small scabs. there were no openings in the skin and there was no evidence of infection. The R foot and both hands were very cold to the touch at arrival to rehab. PVR's were obtained and showed the right RADHA to be 1.26 which is normal. Doppler/PVR waveforms of the right leg were normal at rest. TBI was diminished possibly secondary to pedal/digit disease versus spasm. Doppler/PVR waveform of the left thigh was normal at rest. Consult was obtained with Dr. Maged De Luna from podiatry and he debrided the wound on 04/25/25. Dr. De Luna felt the Achilles tendon was shortened and this was the reason the wound was non-healing. He discussed tendo Achilles lengthening with Govind and Govind will follow up with Dr. De Luna in the office post DC from rehab to discuss/plan for this going forward. Govind has been anemic chronically. The MCV has been decreasing. He takes Protonix 40 mg p.o. twice daily for GERD. Hemoccult stool was positive. The hemoglobin has been stable throughout his admission. Iron studies and reticulocyte count were ordered following discharge from rehab. Hemoglobin at discharge from rehab is 11.5. His creatinine is stable at 1.13 and the BUN is 35. The BUN/creatinine ratio is elevated, more likely than not secondary to high-protein diet and Humberto supplementation for healing.Blood sugars are well controlled with no hypoglycemia. Govind did well with therapy. He has ambulated up to 23 feet with a front wheeled walker at min assist. He is able to do 11 sit to stands in 30 seconds. He is standby assist for bed mobility and contact-guard assist for standing. He is contact-guard assist/min assist for pivoting. He is independent with eating and he is supervision/set up for grooming and bathing. He is contact-guard assist for toileting, toilet transfer and tub/shower transfer. Govind was discharged to [facility] on 04/28/25 for additional therapy prior to returning home to live independently. He has follow up appts scheduled with Dr. Ashley (orthopedic surgery) and with Dr. De Luna (Podiatry). He will continue to follow up with Dr. Vann following DC from [facility]. He will also continue to follow up with Dr. Harrell from cardiology. Physical Exam Const alert, oriented x3 and no apparent distress Constitutional Narrative: Making good eye contact, appropriate. General Appearance: cooperative, comfortable and well kempt HEENT Head and Scalp: normocephalic and atraumatic Eyes PERRL, EOMs intact bilaterally, conjunctivae normal and no scleral icterus Eyes Narrative: No discharge from the eyes. Has had cataract extraction with lens implants in the past. General Eye: normal appearance of both eyes Neck no lymphadenopathy, supple, no JVD, No nodes and no carotid bruits Neck Narrative: Carotids have decreased pulse volume Chest Chest: symmetrical chest wall rise Resp normal respiratory effort, normal air movement, no use of accessory muscles and clear to auscultation bilaterally Resp Narrative: Not tachypneic and no conversational dyspnea. Effort and Inspection: able to speak in complete sentences Cardio regular rate, regular rhythm, S1 normal heart sound, S2 normal heart sound, no murmurs, no rub and no gallops Cardio Narrative: No ectopy GI normal to inspection, nondistended, normoactive bowel sounds and non-tender GI Narrative: No guarding with palpation. Having regular BM's. Denies constipation. no CVA tenderness Narrative: No urine retention. Extremity Extremity Narrative: The edema on the dorsum of the R foot has decreased the flaky dermatitis has resolved. There is a small slit in the skin on the dorsum with a very small amount of serous DC. No erythema and no increased warmth to touch. He has no pain with palpation of the dorsum of the foot. The plantar ulcer is limited to skin breakdown. There is no purulent DC and scant serous DC on the dressing. No odor and no redness or swelling of the plantar surface of the R foot. No pain with palpation over the Achilles tendon. The R foot is cool to the touch but, not ice cold like it was at admission to rehab. He was very dehydrated at admission to rehab and this may have contributed to poor perfusion. The R radial pulse is still not palpable. Popliteal pulses in both LE's are strong. No mottling today. Skin Skin Narrative: No rashes. Generalized hair thinning. The incision for the L BKA is healing well. Gt are intact and there is no dehiscence. No tanmay-incisional erythema and no DC from the incision. Swelling has decreased significantly since admission to rehab. There is some red/purple discoloration over the knee and the remaining anterior tibia.......there is no breakdown and he denies any pain in the area. I suspect this may be due to pressure from the fiberglass stump protector. We have been padding the area to prevent breakdown. General Skin Exam: no breakdown Neuro oriented x3, CN's II-XII intact bilaterally and no focal motor deficits Neuro Narrative: No facial asymmetry. Motor Exam: strength 5/5 throughout Psych mental status grossly normal, thought process normal, cooperative and affect normal Psych Narrative: Appropriate, making good eye contact. Able to stay on topic and focus. No flight of ideas. Does not appear anxious or depressed. Conversant and relating well to staff and myself. Appearance: grossly normal and appropriate Attitude: calm and engaged Activity / Motor Behavior: appropriate eye contact Speech: normal speech Mood & Affect: euthymic mood Medical Records Data Homelessness:: Sheltered Weight / BMI Weight Weight: 176 lb 9.444 oz Body Mass Index (BMI) 23.9 ABG / Lab / Microbiology Data 04/26/25 05:07 04/27/25 05:40 Laboratory: Laboratory Results - last 24 hr 04/27/25 16:20: POC Glucose 142 H 04/28/25 05:57: POC Glucose 172 H Microbiology: Microbiology 04/20/25 10:10 Stool Stool Occult Blood (DARRELL) - Final Occult Blood Positive 04/14/25 23:05 Urine, Clean Catch Urine Culture - Final Yeast, not Veronica albicans D/C Instructions DC O2, CPAP, BIPAP Needs Home O2 Discharge instructions: No Please Follow Up With: Dr. Quan Ashley Meaningful Use Info Meaningful Use Meaningful Use Diagnoses (Choose all that apply): None applicable Discharge Plan Admission Admit Date/Time: 04/14/25 12:58 Primary Reason for Your Visit: Debility secondary to left BKA Attending Provider: Leandra Thomas Primary Care Provider: Didier Vann Consulting Providers: Giles Beard Instructions Additional Instructions / Restrictions: 1. With his hx of PVD, CAD, non-healing diabetic ulcer R foot and now L BKA would like to see the HGBA1C consistently 7 or <. 2. He has chronic anemia. MCV has been decreasing over the past 2 years. He has heme + stool. Recommend iron studies and possible GI follow up. He has known GERD and has been taking Protonix 40 mg BID and still has heme + stool. Discharge Orders/Prescriptions Prescriptions: New ascorbic acid (vitamin C) 500 mg Tablet 500 mg PO BIDCM Qty: 60 0RF Rx Instructions: OK to DC after 1 month. Used for wound healing. bisacodyl 10 mg Suppository 10 mg ID X1 PRN (Reason: Constipation) Qty: 1 0RF Glucagon Emergency Kit (human) 1 mg Recon Soln 1 mg IM X1 PRN (Reason: Hypoglycemia) Qty: 1 0RF multivitamin Tablet 1 tab PO LUNCH Qty: 1 0RF magnesium hydroxide 400 mg/5 mL Suspension 30 ml PO X1 PRN (Reason: Constipation) Qty: 30 0RF Humberto (with collagen) 7-7-1.5 gram Powder In Packet 1 packet PO BIDCM Qty: 60 0RF Rx Instructions: OK to DC after 1 month Povidone-Iodine Swabstick [Betadine Swabstick] 1 packet topical DAILY Qty: 1 0RF Rx Instructions: apply to the area around the diabetic ulcer on the R foot once daily with dressing changes. sennosides-docusate sodium [Stimulant Laxative Plus] 8.6-50 mg Tablet 2 tab PO BID PRN (Reason: Constipation) Qty: 1 0RF vitamin E (dl, acetate) 180 mg (400 unit) Capsule 180 mg PO DAILYCM Qty: 30 0RF Rx Instructions: OK to DC after 1 month insulin aspart U-100 100 unit/mL (3 mL) insulin pen 7 unit subcut TID Qty: 15 0RF gabapentin 100 mg capsule 200 mg PO QHS Qty: 60 0RF Continued insulin glargine 100 unit/mL solution 33 unit subcut QHS Patient Comments: INJECT 40 UNITS SUBCUTANEOUSLY AT BEDTIME (DISCARD INSULIN IN VIAL AFTER OPEN FOR 28 DAYS) acetaminophen 500 mg tablet 1,000 mg PO Q8 aspirin [Adult Low Dose Aspirin] 81 mg tablet,delayed release (DR/EC) 81 mg PO DAILY atorvastatin [Lipitor] 80 mg tablet 80 mg PO QHS dapagliflozin propanediol [Farxiga] 10 mg tablet 10 mg PO DAILY Lactobacillus acidophilus 10 billion cell capsule 100 mmu cells PO DAILY losartan [Cozaar] 25 mg tablet 25 mg PO DAILY pantoprazole [Protonix] [address] for susp in packet 40 mg PO BID cholecalciferol (vitamin D3) [Vitamin D3] 125 mcg (5,000 unit) tablet 125 mcg PO DAILY spironolactone [Aldactone] 25 mg tablet 12.5 mg PO DAILY clopidogrel 75 mg tablet 75 mg PO DAILY Qty: 1 0RF oxycodone 5 mg tablet 5 mg PO Q6H PRN (Reason: pain 1-10) 5 Days Qty: 10 0RF Discontinued amoxicillin 500 mg capsule 500 mg PO Q8H sulfamethoxazole-trimethoprim [Bactrim DS] 800-160 mg tablet 1 tab PO Q12H Referrals / Follow Up: Quan Ashley-Orthopedics [Other] - 05/01/25 1:00 pm Maged De Luna DPM [Med Staff - Active Staff] - 05/01/25 9:15 am () Didier Vann MD [Primary Care Provider] - (dc to SNF) Disposition Disposition (needs filled in before D/C Order can be placed): Half-Way Facility Charges/Coding Visit Charges Inpatient E&M: 67980 Disch Hosp >30min
[2025-04-28] MEDS: Heparin Injection (Vial) 5,000 UNIT/ML VIAL 5000 UNIT SC (08:43)
[2025-04-28] MEDS: Povidone-Iodine Swabstick 1 PACKET TOPICAL (08:43)
[2025-04-28] MEDS: Cholecalciferol (Vit D3) 125 MCG CAPSULE (5,000 UNITS) PO (08:44)
[2025-04-28] MEDS: Aspirin E.C. 81 MG Tablet PO (08:46)
[2025-04-28] MEDS: Lactobacillis Acidophilus 1 CAP PO (08:55)
== END 2025-04-28 14:59 | disposition skilled nursing facility (03) | DRG 463 ==
PROVIDERS: Family Medicine Geriatric Medicine; Admitting Provider Internal Medicine; PCP Family Medicine; Referring Provider Internal Medicine; Visit Provider Internal Medicine
DX: Z47.81 Encounter for orthopedic aftercare following surgical amputation (principal); A48.0 Gas gangrene; I44.2 Atrioventricular block, complete; I47.20 Ventricular tachycardia, unspecified; D62 Acute posthemorrhagic anemia; I50.22 Chronic systolic (congestive) heart failure; E11.52 Type 2 diabetes mellitus with diabetic peripheral angiopathy with gangrene; I13.0 Hypertensive heart and chronic kidney disease with heart failure and stage 1 through stage 4 chronic kidney disease, or unspecified chronic kidney disease; M86.8X7 Other osteomyelitis, ankle and foot; L97.412 Non-pressure chronic ulcer of right heel and midfoot with fat layer exposed; L97.421 Non-pressure chronic ulcer of left heel and midfoot limited to breakdown of skin; D63.8 Anemia in other chronic diseases classified elsewhere; N18.31 Chronic kidney disease, stage 3a; E11.69 Type 2 diabetes mellitus with other specified complication; Z79.4 Long term (current) use of insulin; E78.5 Hyperlipidemia, unspecified; E11.42 Type 2 diabetes mellitus with diabetic polyneuropathy; Z89.512 Acquired absence of left leg below knee; K21.9 Gastro-esophageal reflux disease without esophagitis; I25.2 Old myocardial infarction; E11.22 Type 2 diabetes mellitus with diabetic chronic kidney disease; I25.5 Ischemic cardiomyopathy; E11.621 Type 2 diabetes mellitus with foot ulcer; I25.10 Atherosclerotic heart disease of native coronary artery without angina pectoris; G54.6 Phantom limb syndrome with pain; Z79.84 Long term (current) use of oral hypoglycemic drugs; Z79.02 Long term (current) use of antithrombotics/antiplatelets; Z79.899 Other long term (current) drug therapy
CPT/HCPCS: 36415; 73630; 80048; 80053; 81001; 82274; 82962; 83036; 83735; 84100; 84132; 85014; 85018; 85025; 87086; 87088; 93923; 94668; 97110; 97116; 97162; 97167; 97530; 97535; 97542; 97802; 97803; A4216